=== PATIENT | female | born 1965 | race Caucasian/White ===

== ENCOUNTER → 2018-09-10 08:57 | Outpatient (CLI) | payer BC, SELFPAY ==
[2018-09-10 09:37] LABS: Basophils % 0.5 % (0.1-2.0); Eosinophils # 0.1 K/mm3 (0.0-0.4); Eosinophils % 2.4 % (0.1-12.0); Hematocrit 37.7 % (37.0-47.0); Hemoglobin 12.2 g/dL (12.2-16.2); Lymphocytes # 1.9 K/mm3 (0.7-4.5); Lymphocytes % 31.7 % (10-50); Mean Corpuscular HGB Conc 32.4 g/dL (31.8-35.4); Mean Corpuscular Hemoglobin 28.9 pg (27.0-31.2); Mean Corpuscular Volume 89.3 fl (81-99); Mean Platelet Volume 6.8 fl (7.4-10.4); Monocytes # 0.2 K/mm3 (0.1-1.0); Monocytes % 3.7 % (1.7-9.3); Neutrophils # 3.7 K/mm3 (1.8-7.8); Neutrophils % 61.7 % (37.0-80.0); Platelet Count 383 K/mm3 (142-424); Red Blood Count 4.23 M/mm3 (4.20-5.40); Red Cell Distribution Width 13.2 % (11.5-17.5)
[2018-09-10 10:11] LABS: Hemoglobin A1C 9.2 % (0.0-7.0)
[2018-09-10 11:04] LABS: Alanine Aminotransferase 52 U/L (12-78); Albumin Level 3.3 gm/dL (3.4-5.0); Albumin/Globulin Ratio 0.9 (1.1-1.8); Alkaline Phosphatase 70 U/L (46-116); Anion Gap 14.3 mEq/L (5-15); Aspartate Amino Transferase 41 U/L (15-37); Bilirubin,Total 0.4 mg/dL (0.2-1.0); Blood Urea Nitrogen 18 mg/dL (7-18); Calcium 9.6 mg/dL (8.5-10.1); Carbon Dioxide 29 mmol/L (21.0-32.0); Chloride 101 mmol/L (98-107); Chol/HDL Ratio 6.6 (1-3.5); Cholesterol 217 mg/dL (140-200); Creatinine,Serum 1.21 mg/dL (0.55-1.02); Estimated Glomerular Filt Rate 47 ml/min (>60); GFR (African American) 57 ML/MIN (>60); Globulin 3.5 gm/dl (1.3-3.2); Glucose 162 mg/dL (74-106); HDL Cholesterol 33 mg/dL (29-89); LDL Cholesterol 115 mg/dL (0-130); Potassium 4.3 mmoL/L (3.5-5.1); Sodium 140 mmol/L (136-145); Thyroid Stimulating Hormone 1.62 uIU/ml (0.358-3.740); Total Protein,Serum 6.8 gm/dL (6.4-8.2); Triglycerides 347 mg/dL (30-200); VLDL Cholesterol 69 mg/dL (0-40)
[2018-09-11 06:41] LABS: Microalbumin, Urine 54.5 ug/mL (Not Estab.)
== END ==
PROVIDERS: Visit Provider Nurse Practitioner Family
DX: E10.9 Type 1 diabetes mellitus without complications (principal); E78.2 Mixed hyperlipidemia; I10 Essential (primary) hypertension; N18.3 Chronic kidney disease, stage 3 (moderate); D50.9 Iron deficiency anemia, unspecified
CPT/HCPCS: 36415; 80053; 80061; 82043; 82570; 83036; 84443; 85025

== ENCOUNTER → 2019-01-11 16:43 | Outpatient (CLI) | payer BC, SELFPAY ==
--- NOTE | 2019-01-11 16:44 | MM_ITS ---
MM Dig screening mamm BI w/CAD ORDERING PHYSICIAN : Meaghan Robles APRN PATIENT AGE: 53 years GENDER: Female COMPARISON: June 2010, July 2013, October 2015, November 2016 Also June 2009 film screen mammogram INDICATION: ITS.Routine: SCREENING. No hormones no new complaints noncontributory family history TECHNIQUE: Standard CC and MLO images were obtained. R2 CAD reviewed. FINDINGS: [id number] breast density. No dominant mass nor suspicious calcifications either breast. RIGHT BREAST: No new areas of significant concern in Relative Density at the deep superior right breast appears to be summation shadow from previously evident long-standing fibroglandular elements in this region as seen on studies dating back to 2015, 2016. As well as 2008 film screen mammogram LEFT BREAST:Stable left breast unremarkable. Stable fibroglandular pattern with no discrete new findings. =====IMPRESSION: No new areas significant concern. Bilateral follow-up in one year recommended and should be emphasized/encouraged BI-RADS Category: 2 Benign Finding(s) RECOMMENDED FOLLOW-UP: 1YR 1 YEAR FOLLOW-UP (A letter has been sent to the patient regarding results of the study.)
== END ==
PROVIDERS: PCP Nurse Practitioner Family; Visit Provider Nurse Practitioner Family
DX: Z12.31 Encounter for screening mammogram for malignant neoplasm of breast (principal)
CPT/HCPCS: 77067

== ENCOUNTER → 2019-08-21 12:45 | Outpatient (CLI) | payer BC, SELFPAY ==
[2019-08-21 13:43] LABS: Basophils # 0.1 K/mm3 (0-0.2); Basophils % 0.9 % (0.1-2.0); Eosinophils # 0.2 K/mm3 (0.0-0.4); Eosinophils % 3.2 % (0.1-12.0); Hematocrit 37.7 % (37.0-47.0); Hemoglobin 12.3 g/dL (12.2-16.2); Lymphocytes # 2.5 K/mm3 (0.7-4.5); Lymphocytes % 32.7 % (10-50); Mean Corpuscular HGB Conc 32.8 g/dL (31.8-35.4); Mean Corpuscular Hemoglobin 29.5 pg (27.0-31.2); Mean Platelet Volume 7.3 fl (7.4-10.4); Monocytes # 0.4 K/mm3 (0.1-1.0); Monocytes % 5.8 % (1.7-9.3); Neutrophils # 4.3 K/mm3 (1.8-7.8); Neutrophils % 57.4 % (37.0-80.0); Platelet Count 393 K/mm3 (142-424); Red Blood Count 4.19 M/mm3 (4.20-5.40); Red Cell Distribution Width 12.1 % (11.5-17.5); White Blood Count 7.5 K/mm3 (4.8-10.8)
[2019-08-21 13:57] LABS: Hemoglobin A1C 9.7 % (0.0-7.0)
[2019-08-21 14:32] LABS: Alanine Aminotransferase 27 U/L (12-78); Albumin Level 3.6 gm/dL (3.4-5.0); Albumin/Globulin Ratio 1.1 (1.1-1.8); Alkaline Phosphatase 60 U/L (46-116); Anion Gap 15.1 mEq/L (5-15); Aspartate Amino Transferase 25 U/L (15-37); Bilirubin,Total 0.4 mg/dL (0.2-1.0); Blood Urea Nitrogen 26 mg/dL (7-18); Calcium 9.8 mg/dL (8.5-10.1); Carbon Dioxide 31 mmol/L (21.0-32.0); Chloride 103 mmol/L (98-107); Creatinine,Serum 1.51 mg/dL (0.55-1.02); Estimated Glomerular Filt Rate 36 ml/min (>60); GFR (African American) 44 ML/MIN (>60); Globulin 3.3 gm/dl (1.3-3.2); Glucose 85 mg/dL (74-106); Potassium 4.1 mmoL/L (3.5-5.1); Sodium 145 mmol/L (136-145); Thyroid Stimulating Hormone 3.81 uIU/ml (0.358-3.740); Total Protein,Serum 6.9 gm/dL (6.4-8.2)
[2019-08-22 11:25] LABS: Creatinine, Urine 20.5 mg/dL (Not Estab.); Microalbumin, Urine <3.0 ug/mL (Not Estab.)
== END ==
PROVIDERS: Visit Provider Nurse Practitioner Family
DX: E10.22 Type 1 diabetes mellitus with diabetic chronic kidney disease (principal); N18.3 Chronic kidney disease, stage 3 (moderate)
CPT/HCPCS: 36415; 80053; 82043; 82570; 83036; 84443; 85025

== ENCOUNTER → 2019-08-31 12:49 | Outpatient (CLI) | payer BC, SELFPAY ==
--- NOTE | 2019-08-31 12:54 | US_ITS ---
PROCEDURE: US THYROID CLINICAL INDICATION: THYROMEGLY COMPARISON: No exams were available for comparison FINDINGS: Right lobe: 3.8 x 1.3 x 1.3 cm there are a couple of cysts in the right lobe inferiorly at 3 mm each. Left lobe: The 3.8 x 1.5 x 1.4 cm. A slightly hypoechoic nodules present centrally at 5 x 3 mm. Small cyst is present at 4 mm in the mid polar region. An additional hypoechoic nodule is present posteriorly and inferiorly at 5 mm Isthmus: Unremarkable Additional findings: IMPRESSION: Small bilateral thyroid nodules which have a low level of suspicion for malignancy Dictated by: Igor Horne MD 08/31/2019 15:30 Electronically signed by Igor Horne MD in [place] 08/31/2019 15:30
== END ==
PROVIDERS: PCP Nurse Practitioner Family; Visit Provider Nurse Practitioner Family
DX: E01.0 Iodine-deficiency related diffuse (endemic) goiter (principal)
CPT/HCPCS: 76536

== ENCOUNTER → 2020-03-28 08:33 | Outpatient (CLI) | payer BC, SELFPAY ==
[2020-03-28 08:56] LABS: Basophils % 0.7 % (0.1-2.0); Eosinophils # 0.1 K/mm3 (0.0-0.4); Eosinophils % 2.5 % (0.1-12.0); Hematocrit 37.5 % (37.0-47.0); Hemoglobin 12.4 g/dL (12.2-16.2); Lymphocytes # 1.6 K/mm3 (0.7-4.5); Mean Corpuscular HGB Conc 33.2 g/dL (31.8-35.4); Mean Corpuscular Hemoglobin 29.8 pg (27.0-31.2); Mean Corpuscular Volume 89.7 fl (81-99); Mean Platelet Volume 7.6 fl (7.4-10.4); Monocytes # 0.2 K/mm3 (0.1-1.0); Monocytes % 4.3 % (1.7-9.3); Neutrophils # 3.7 K/mm3 (1.8-7.8); Neutrophils % 64.4 % (37.0-80.0); Platelet Count 313 K/mm3 (142-424); Red Blood Count 4.18 M/mm3 (4.20-5.40); Red Cell Distribution Width 12.4 % (11.5-17.5); White Blood Count 5.7 K/mm3 (4.8-10.8)
[2020-03-28 10:03] LABS: Microalbumin/Creatinine Ratio 32.8
[2020-03-28 10:04] LABS: Creatinine,Urine Random 21 mg/dL (Not Estab.)
[2020-03-28 10:13] LABS: Alanine Aminotransferase 32 U/L (12-78); Albumin/Globulin Ratio 1.4 (1.1-1.8); Alkaline Phosphatase 76 U/L (38-126); Anion Gap 13.8 mEq/L (5-15); Aspartate Amino Transferase 35 U/L (14-36); Bilirubin,Total 0.5 mg/dl (0.2-1.3); Blood Urea Nitrogen 32 mg/dl (7-17); Carbon Dioxide 29 mmol/L (22.0-30.0); Chloride 96 mmol/L (98-107); Chol/HDL Ratio 5.7 (1-3.5); Cholesterol 241 mg/dl (140-200); Estimated Glomerular Filt Rate 39 ml/min (>60); GFR (African American) 48 ML/MIN (>60); Globulin 2.8 g/dL (1.3-3.2); HDL Cholesterol 42 mg/dl (40-60); Potassium 4.8 mmoL/L (3.5-5.1); Sodium 134 mmol/L (136-145); Total Protein,Serum 6.8 g/dl (6.3-8.2); Triglycerides 335 mg/dl (30-150); VLDL Cholesterol 67 mg/dL (0-40)
[2020-03-28 10:24] LABS: Direct LDL Cholesterol 146.86 mg/dL (100-129)
[2020-03-28 10:41] LABS: Thyroid Stimulating Hormone 1.89 uIU/mL (0.465-4.68)
[2020-03-28 10:49] LABS: Glucose 426 mg/dl (74-100)
== END ==
PROVIDERS: Visit Provider Nurse Practitioner Family
DX: E78.2 Mixed hyperlipidemia (principal); E10.22 Type 1 diabetes mellitus with diabetic chronic kidney disease; N18.3 Chronic kidney disease, stage 3 (moderate); E03.9 Hypothyroidism, unspecified; D50.9 Iron deficiency anemia, unspecified
CPT/HCPCS: 36415; 80053; 80061; 82043; 82570; 83036; 84443; 85025

== ENCOUNTER → 2020-04-15 06:09 | Outpatient (CLI) | payer BC, SELFPAY ==
--- NOTE | 2020-04-15 | CA_ITS ---
APPROVED REPORT Exam: Pharmacologic Technologist: Hanh English Ht: 5 ft 7 in Wt: 220 lbs BSA: 2.11 m2 HR: 77 bpm BP: 129/58 mmHg Indications: Chest pain at rest Medical History Medications: Lisinopril,,,,, Omeprazole,,,,, Furosemide (LASIX),,,,, Aspirin,,,,, Synthroid,,,,, Iron,,,,, Tylenol,,,,, Calcium,,,,, FeNOfibrate,,,,, NovOLOG,,,,, LeveMIR,,,,, RoSUVASTATIN,,,,, Stress Test Details Test: LEXISCAN HR Resting HR: 79 bpm Max Heart Rate (APMHR): 167 bpm Max HR Achieved: 112 bpm Target HR (85% APMHR): 141 bpm % of APMHR: 67 Recovery HR: 96 bpm BP Resting BP: 129.0/58.0 mmHg Max BP: 150.0/66.0 mmHg Recovery BP: 140.0/59.0 mmHg ECG Clinical Exercise duration: 04:00 min Highest Stage Achieved: Exercise capacity: 1.0 METs Stress ECG Conclusion Resting ECG: Sinus rhythm Lexiscan portion completed. Patient complained of shortness of breath during peak infusion. Symptoms: Shortness of breath during peak infusion, resolved in recovery. No chest pain. Arrhythmias/Ectopy: No ectopy. ST-T Changes: [address] segment depression noted from the baseline EKG. The EKG portion of the Lexiscan is positive for ischemia. Conclusion: Images to follow. Test Summary RECOVERY 04:00 . . 97 . 148/ 60 . . REST 11:10 . . 79 . 129/ 58 . . Stage 1 . . . . . . . Myoview Injected Stage 1 01:00 . . 111 . . . . Stage 2 01:00 . . 111 . 150/ 66 . . Stage 3 01:00 . . 109 . 137/ 60 . . Stage 4 01:00 . . 101 . 138/ 60 . Stop exercise at 04:00 RECOVERY 01:00 . . 106 . 131/ 58 . . RECOVERY 02:00 . . 99 . 131/ 58 . . RECOVERY 03:00 . . 98 . 148/ 60 . . RECOVERY 04:00 . . 97 . 148/ 60 . . RECOVERY 04:21 . . 92 . 140/ 59 . . Electronically signed by : Jacobo Isabel, 04/15/2020 19:16:08
--- NOTE | 2020-04-15 06:35 | NM_ITS ---
APPROVED REPORT Exam: Nuclear Stress Test Indication: Chest pain, HTN, DM, High cholesterol, Family history Patient Location: Outpatient Stress Tech: Hanh English [place] Tech:Shanti Cramer, ARRT, RT (R)(N) Ht: 5 ft 7 in Wt: 220 lbs Bra Size: 38B HR: 77 bpm BP: 129/58 mmHg BSA: 2.11 m2 BMI: 34.4 History: Chest pain, HTN, DM, High cholesterol, Family history Procedure: Patient received a 0.4 mg of intravenous Lexiscan, resting heart rate 77 bpm, resting blood pressure 129/58 mmHg, with Lexiscan maximum heart rate achived was 110 bpm which is Less than 85 % of the maximum predicted heart rate and blood pressure was 150/66 mmHg. With Lexiscan, patient denied any complaint of chest pain. Electrocardiogram Resting electrocardiogram shows sinus rhythm, with Lexiscan there is a millimeter horizontal ST segment depression noted from the baseline EKG. The EKG portion of the Lexiscan is positive for ischemia. Cardiac Stress and Resting SPECT Images: Cardiac Stress and Resting SPECT images were obtained using technetium 99m Myoview 30.5 mCi stress and 10.38 mCi at rest. Gated SPECT for analysis of segmental wall motion and calculation of the ejection fraction also done. Cardiac stress and resting SPECT images show mild fixed defect in the anterior wall with normal contractility gated SPECT is likely secondary to soft tissue attenuation, no reversible ischemia seen. Computer derived ejection fraction is over 65% with no regional wall motion abnormality, right ventricle is normal size and contractility. Conclusion: 1. The EKG portion of the Lexiscan Myoview is positive for ischemia. 2. No scintigraphic evidence of reversible ischemia seen, computer derived ejection fraction is over 65% with no regional wall motion abnormality, right ventricle is normal size and contractility. 3. Likely abnormal Lexiscan myocardial perfusion imaging due to positive EKG for ischemia with Lexiscan. Electronically signed by : Jacobo Isabel, 04/15/2020 19:18:50
--- NOTE | 2020-04-15 08:15 | HMH.ITSHM ---
Current Home Medications as stated by this patient Jeannette Tran or territory service representative. []NOVOLOG LEVEMIR SYNTHROID ROSUVASTATIN LISINOPRIL OMEPRAZOLE FUROSEMIDE FENOFIBRIC IRON CALCIUM ASA TYLENOL
== END ==
PROVIDERS: PCP Nurse Practitioner Family; Visit Provider Nurse Practitioner Family
DX: R07.9 Chest pain, unspecified (principal)
CPT/HCPCS: 78454; 93017; A9502; J2785

== ENCOUNTER 2020-04-25 07:55 | Day surgery (SDC) | payer BC, SELFPAY ==
[2020-04-25] VITALS (12 sets, daily range): BP systolic 98–165; BP diastolic 50–112; PULSE 78–95; RESP 16–18; TEMP 36.8; O2SAT 90–97; BMI 34.7
--- NOTE | 2020-04-25 08:01 | CA_ITS ---
APPROVED REPORT EXAM: Comprehensive 2D, Doppler, and color-flow Echocardiogram Numerologist: Ignacia Hull RDCS Ht: 5 ft 7 in Wt: 222lbs BSA: 2.11 BP: 157/67 mmHg Indications: ABN EKG,ABN GXT,CP,DM,HTN,BAKER,HLP 2D Dimensions LVOT 1.75 cm (M/F) 1.5-2.5 M-Mode Dimensions RVDd 3.14 cm (0.9-2.6) LVDd 3.36 cm (3.5-5.7) LVDs 2.55 cm (3.5-5.7) IVSd 1.49 cm (0.6-1.1) PWd 1.15 cm (0.6-1.1) EF (Teich) 49.20% FS 24.10% EDV (Teich) 46.10 mL ESV (Teich) 23.40 mL LV Diastology E/A Ratio 0.74 Aortic Valve LVOT Max 107.00 (70-110 cm/s) LVOT VTI 18.70 cm Mitral Valve MV A Velocity 86.00 (40-130 cm/s) Left Ventricle Left atrium is mildly enlarged, left ventricle is normal size, mild concentric left ventricular hypertrophy, visually estimated ejection fraction 55% with no regional wall motion abnormality, grade 1 diastolic dysfunction seen without tissue Doppler evidence of raise left atrial pressure. Right Ventricle Right atrium and right ventricular normal size and contractility. Aortic Valve Aortic valve is thickened and calcified leaflet chordae display good mobility, there is no aortic stenosis or aortic insufficiency. Mitral Valve Mitral valve leaflets are minimally thickened, there is no mitral stenosis, there is mild mitral regurgitation. Tricuspid Valve Tricuspid valve grossly normal, there is mild tricuspid regurgitation, tricuspid regurgitation jet velocity is inadequate for calculation of the right ventricular systolic pressure. Pulmonic Valve Pulmonic valve is poorly visualized. Great Vessels Aortic root is normal size. Pericardium No significant pericardial effusion noted. Conclusion 1. Mildly enlarged left atrium, normal left ventricular size, mild concentric left ventricular hypertrophy, visually estimated ejection fraction 55% with no regional wall motion abnormality, grade 1 diastolic dysfunction seen without tissue Doppler evidence of raise left atrial pressure. 2. Thickened and calcified aortic valve without aortic stenosis or aortic insufficiency. 3. Mild mitral and tricuspid regurgitation. 4. No significant pericardial effusion noted. Electronically signed by : Jacobo Isabel, 04/25/2020 09:35:23
--- NOTE | 2020-04-25 08:14 | IR_ITS ---
APPROVED REPORT Patient Location: Outpatient PROCEDURES Left heart catheterization Left ventriculogram Selective coronary angiogram Drug-eluting stent deployment to the proximal mid codominant circumflex artery Drug-eluting stent deployment to the proximal and mid codominant right coronary artery Drug-eluting stent deployment to the posterior descending artery Drug-eluting stent deployment to the posterior lateral ventricular branch INDICATION Coronary artery disease, Angina pectoris Informed consent was obtained prior to the procedure. COMPLICATIONS none Estimated Blood Loss: less than 10 mls TECHNIQUE One percent lidocaine used to anesthetize the right anterior aspect of the wrist. The right radial artery was accessed via the Seldinger technique. A 6 Serbian sheath was placed in the right radial artery. 2.5 mg of verapamil, 800 mcg of nitroglycerin, 1mg Lidocaine and 5000 U Heparin were given through the arterial sheath. The trap catheter was also used to perform left heart catheterization, left ventriculogram and selective coronary angiogram. At the end the diagnostic angiogram therapeutic heparin was administered giving a therapeutic ACT. And I Cherelle left guide catheter was placed in the left main artery and a Choice PT extra-support wire was placed distally in the circumflex artery. Primary stenting could not be performed with a 3 mm x 38 mm stent therefore a 2.5 x 20 mm balloon was deployed at 20 clair to predilate the circumflex artery. This 3 mm x 38 mm drug-eluting stent was deployed at 20 clair reducing the stenosis to 0%. An additional 3 mm x 15 mm resolute berta stent was then placed in the ostial proximal segment of the circumflex artery overlapping the first stent and deployed at 22 clair. 800 mcg of intracoronary glycerin was administered after the procedure. Excellent angiographic results were obtained before and after the procedure achieving SHABBIR-3 flow before and after. Following this the same catheter was placed into the right coronary artery and the same wire was placed into the posterior lateral branch. Primary stenting could not be performed therefore a 2 mm x 12 mm balloon was used to predilate the stenosis and a 2.25 x 18 mm resolute berta stent was then placed in the posterior lateral branch at 20 clair. There was significant difficulty getting this stent into the proximal right coronary artery due to calcification and atheromatous plaque. There was even difficulty passing the 2 mm balloon through the proximal segment of the right coronary artery suggesting a much more severe stenosis then angiographically appreciated. After achieving SHABBIR-3 flow before and after the procedure in the posterior lateral branch the wire was pulled back and placed into the posterior descending artery where a 2 mm x 12 mm resolute berta stent was deployed at 20 clair reducing the stenosis to 0%. Like the previous stent there was also difficulty getting the stent through the proximal segment of the right coronary artery. At this point it was decided to intervene upon the right coronary artery as clearly there was calcification and a severe stenosis in the proximal segment as evidenced by the inability to easily pass the stent. At this point a 2.75 x 38 mm resolute berta stent was attempted to traverse the stenosis however there was difficulty in delivering the stent due to the intraluminal stenosis. This area was predilated with a 2.5 x 20 mm noncompliant balloon at 20 clair. Despite the predilatation a stent could still not be deployed. A telescope guide liner was then advanced into the proximal right coronary artery and then advanced into the mid segment which allowed delivery of the 2.75 x 38 mm resolute berta stent which
[2020-04-25 08:37] LABS: Basophils # 0.1 K/mm3 (0-0.2); Basophils % 0.7 % (0.1-2.0); Eosinophils # 0.3 K/mm3 (0.0-0.4); Eosinophils % 3.7 % (0.1-12.0); Hemoglobin 13.1 g/dL (12.2-16.2); Lymphocytes # 1.9 K/mm3 (0.7-4.5); Lymphocytes % 26.7 % (10-50); Mean Corpuscular HGB Conc 35.4 g/dL (31.8-35.4); Mean Corpuscular Hemoglobin 30.4 pg (27.0-31.2); Mean Corpuscular Volume 85.8 fl (81-99); Mean Platelet Volume 7.5 fl (7.4-10.4); Monocytes # 0.3 K/mm3 (0.1-1.0); Monocytes % 4.4 % (1.7-9.3); Neutrophils # 4.6 K/mm3 (1.8-7.8); Neutrophils % 64.5 % (37.0-80.0); Platelet Count 344 K/mm3 (142-424); Red Blood Count 4.31 M/mm3 (4.20-5.40); Red Cell Distribution Width 12.5 % (11.5-17.5); White Blood Count 7.2 K/mm3 (4.8-10.8)
[2020-04-25 08:40] LABS: Chloride 99 mmol/L (98-107)
[2020-04-25 08:41] LABS: Potassium 3.7 mmoL/L (3.5-5.1); Sodium 138 mmol/L (136-145)
[2020-04-25 08:43] LABS: Blood Urea Nitrogen 35 mg/dl (7-17); Creatinine Clearance Estimated 65 mL/min (50-200); Estimated Glomerular Filt Rate 34 ml/min (>60); GFR (African American) 41 ML/MIN (>60)
[2020-04-25 08:44] LABS: Anion Gap 14.7 mEq/L (5-15); Calcium 10.2 mg/dl (8.4-10.2); Carbon Dioxide 28 mmol/L (22.0-30.0); Glucose 173 mg/dl (74-100)
[2020-04-25 09:03] LABS: Coronavirus 19 IgG Antibody Negative (Negative)
[2020-04-25 09:04] LABS: Coronavirus 19 IgM Antibody Negative (Negative)
[2020-04-25 14:02] LABS: CATHL Activated Clotting Time 211 SEC (74-125)
[2020-04-25 14:03] LABS: CATHL Activated Clotting Time > 400 SEC (74-125)
--- NOTE | 2020-04-25 14:09 | HMH.PHACLD ---
Jeannette Tran has received discharge medication counseling on the following medications: CONTINUE MEDICATIONS: ASPIRIN, ROSUVASTATIN, LISINOPRIL NEW MEDICATIONS: BRILINTA, BISOPROLOL
== END 2020-04-25 15:22 | disposition home or self-care (01) ==
PROVIDERS: PCP Nurse Practitioner Family; Visit Provider Internal Medicine
DX: I25.110 Atherosclerotic heart disease of native coronary artery with unstable angina pectoris (principal); E78.5 Hyperlipidemia, unspecified; I10 Essential (primary) hypertension; R94.31 Abnormal electrocardiogram [ECG] [EKG]; R94.39 Abnormal result of other cardiovascular function study; E11.9 Type 2 diabetes mellitus without complications; Z79.4 Long term (current) use of insulin; E03.9 Hypothyroidism, unspecified; Z79.899 Other long term (current) drug therapy
CPT/HCPCS: 80048; 85025; 85347; 86328; 92928; 92929; 93306; 93458; 99152; 99153; C1725; C1769; C1876; C9600; C9601; J1644; Q9967

== ENCOUNTER → 2020-05-06 07:58 | Outpatient (CLI) | payer BC, SELFPAY ==
[2020-05-06 08:40] LABS: Basophils # 0.1 K/mm3 (0-0.2); Basophils % 0.8 % (0.1-2.0); Eosinophils # 0.2 K/mm3 (0.0-0.4); Eosinophils % 2.8 % (0.1-12.0); Hematocrit 36.4 % (37.0-47.0); Hemoglobin 11.6 g/dL (12.2-16.2); Lymphocytes # 2.1 K/mm3 (0.7-4.5); Lymphocytes % 32.5 % (10-50); Mean Corpuscular HGB Conc 31.8 g/dL (31.8-35.4); Mean Corpuscular Hemoglobin 28.7 pg (27.0-31.2); Mean Corpuscular Volume 90.2 fl (81-99); Mean Platelet Volume 7.4 fl (7.4-10.4); Monocytes # 0.3 K/mm3 (0.1-1.0); Monocytes % 5.1 % (1.7-9.3); Neutrophils # 3.8 K/mm3 (1.8-7.8); Neutrophils % 58.7 % (37.0-80.0); Platelet Count 343 K/mm3 (142-424); Red Blood Count 4.04 M/mm3 (4.20-5.40); Red Cell Distribution Width 12.3 % (11.5-17.5); White Blood Count 6.5 K/mm3 (4.8-10.8)
[2020-05-06 08:47] LABS: Chloride 102 mmol/L (98-107); Sodium 139 mmol/L (136-145)
[2020-05-06 08:48] LABS: Potassium 4.6 mmoL/L (3.5-5.1)
[2020-05-06 08:50] LABS: Blood Urea Nitrogen 39 mg/dl (7-17); Estimated Glomerular Filt Rate 28 ml/min (>60); GFR (African American) 33 ML/MIN (>60)
[2020-05-06 08:51] LABS: Anion Gap 11.6 mEq/L (5-15); Calcium 10.1 mg/dl (8.4-10.2); Carbon Dioxide 30 mmol/L (22.0-30.0); Glucose 151 mg/dl (74-100)
== END ==
PROVIDERS: Visit Provider Internal Medicine
DX: R06.02 Shortness of breath (principal); I25.10 Atherosclerotic heart disease of native coronary artery without angina pectoris; Z95.5 Presence of coronary angioplasty implant and graft
CPT/HCPCS: 36415; 80048; 85025

== ENCOUNTER → 2020-05-14 08:46 | Outpatient (CLI) | payer BC, SELFPAY ==
[2020-05-14 09:23] LABS: Chloride 100 mmol/L (98-107); Sodium 139 mmol/L (136-145)
[2020-05-14 09:24] LABS: Potassium 4.4 mmoL/L (3.5-5.1)
[2020-05-14 09:26] LABS: Blood Urea Nitrogen 44 mg/dl (7-17); Estimated Glomerular Filt Rate 34 ml/min (>60); GFR (African American) 41 ML/MIN (>60)
[2020-05-14 09:27] LABS: Anion Gap 14.4 mEq/L (5-15); Calcium 9.9 mg/dl (8.4-10.2); Carbon Dioxide 29 mmol/L (22.0-30.0); Glucose 200 mg/dl (74-100)
== END ==
PROVIDERS: Visit Provider Nurse Practitioner Family
DX: I25.10 Atherosclerotic heart disease of native coronary artery without angina pectoris (principal); E78.5 Hyperlipidemia, unspecified; I10 Essential (primary) hypertension; Z95.5 Presence of coronary angioplasty implant and graft
CPT/HCPCS: 80048

== ENCOUNTER 2020-05-14 12:56 | Outpatient (RCR) | payer BC, SELFPAY | END 2020-09-25 13:52 | disposition home or self-care (01) | LOC: PT 12:56 | PROVIDERS: Visit Provider Internal Medicine | DX: Z95.5 Presence of coronary angioplasty implant and graft (principal) | CPT/HCPCS: 93798 ==

== ENCOUNTER → 2020-06-06 06:16 | Outpatient (CLI) | payer BC, SELFPAY ==
--- NOTE | 2020-06-06 06:17 | NM_ITS ---
APPROVED REPORT Exam: Nuclear Stress Test Indication: fatigue Patient Location: Outpatient Stress Tech: Erin Rodríguez [place] Tech:RYAN Peguero RT(R)(N) Ht: 5 ft 6 in Wt: 210 lbs Bra Size: 38b HR: 95 bpm BP: 124/82 mmHg BSA: 2.04 m2 BMI: 33.8 Procedure: Patient received a 0.4 mg of intravenous Lexiscan, resting heart rate 95 bpm, resting blood pressure 124/82 mmHg, with Lexiscan maximum heart rate achived was 133 bpm which is Less than 85 % of the maximum predicted heart rate and blood pressure was 142/80 mmHg. With Lexiscan, patient denied any complaint of chest pain. Electrocardiogram Resting electrocardiogram showed sinus rhythm, with Lexiscan there is less than 1.[address] segment depression noted from the baseline EKG. The EKG portion of the Lexiscan is nondiagnostic. Cardiac Stress and Resting SPECT Images: Cardiac Stress and Resting SPECT images were obtained using technetium 99m Myoview 32.6 mCi stress and 10.15 mCi at rest. Gated SPECT for analysis of segmental wall motion and calculation of the ejection fraction also done. Prone images were also obtained. Cardiac stress and rest SPECT images show uniform myocardial activity without segmental perfusion abnormality, computer derived ejection fraction is over 65% with no regional wall motion abnormality, right ventricle is normal size and contractility. Conclusion: 1. The EKG portion of the Lexiscan Myoview is nondiagnostic. 2. No scintigraphic evidence of reversible ischemia seen, computer derived ejection fraction is over 65% with no regional wall motion abnormality, right ventricle is normal size and contractility. 3. Normal Lexiscan Myoview study. Electronically signed by : Jacobo Isabel, 06/07/2020 11:55:44
--- NOTE | 2020-06-06 06:17 | CA_ITS ---
APPROVED REPORT Exam: Pharmacologic Technologist: Erin Rodríguez, Ht: 5 ft 7 in Wt: 224 lbs BSA: 2.12 m2 HR: 65 bpm BP: 143/60 mmHg Indications: CAD Medical History Medical History: HTN, Hyperlipidemia, Diabetic ??? Insulin Allergies: No known drug allergies Cardiac Risk Factors: HTN, Hyperlipidemia, Diabetes (insulin) Stress Test Details Test: LEXISCAN HR Resting HR: 65 bpm Max Heart Rate (APMHR): 167 bpm Max HR Achieved: 94 bpm Target HR (85% APMHR): 141 bpm % of APMHR: 56 Recovery HR: 84 bpm BP Resting BP: 143.0/60.0 mmHg Max BP: 143.0/60.0 mmHg Recovery BP: 124.0/61.0 mmHg ECG Resting ECG: NSR,LAD,LOW VOLTAGE QRS,SLOW R WAVE PROGRESSION Clinical Exercise duration: 04:01 min Highest Stage Achieved: Exercise capacity: 1.0 METs Stress ECG Conclusion DURING INFUSION OF LEXISCAN PATIENT HAD SOA AND MILD MALAISE. NO CHEST PAIN. NO ARRHYTHMIAS/ECTOPY. NS ST-T CHANGES. UNREMARKABLE LEXISCAN STRESS. MYOVIEW IMAGES REPORTED SEPARATELY. Electronically signed by : Jacobo Isabel, 06/07/2020 11:38:10
--- NOTE | 2020-06-06 09:53 | HMH.ITSHM ---
Current Home Medications as stated by this patient Jeannette Tran or logistics service representative. [] asa furosemide insulin
== END ==
PROVIDERS: PCP Nurse Practitioner Family; Visit Provider Nurse Practitioner Family
DX: I25.10 Atherosclerotic heart disease of native coronary artery without angina pectoris (principal); R06.02 Shortness of breath; E78.2 Mixed hyperlipidemia; I10 Essential (primary) hypertension; I51.89 Other ill-defined heart diseases; Z95.5 Presence of coronary angioplasty implant and graft
CPT/HCPCS: 78452; 93017; A9502; J2785

== ENCOUNTER → 2020-10-07 08:05 | Outpatient (CLI) | payer BC, SELFPAY | PROVIDERS: PCP Nurse Practitioner Family; Visit Provider Ophthalmology | DX: Z01.818 Encounter for other preprocedural examination (principal); Z11.52 Encounter for screening for COVID-19 | CPT/HCPCS: U0003 ==

== ENCOUNTER → 2020-11-12 15:54 | Outpatient (CLI) | payer BC, SELFPAY ==
--- NOTE | 2020-11-12 15:55 | MM_ITS ---
PROCEDURE INFORMATION: Exam: MG Screening 3D Mammography Exam date and time: 11/12/2020 3:55 PM Age: 55 years old Clinical indication: Screening hit mammogram. No personal or family HX of breast cancer TECHNIQUE: Imaging protocol: Screening tomosynthesis and 2D mammography including computer-aided detection (CAD) when performed. COMPARISON: 1. MG DIG MAMM-SCREEN KAROL 01/11/2019 4:49 PM 2. MG DMSB DIG MAMM-SCREEN KAROL W/CAD 12/10/2016 4:20 PM 3. MG DMSB DIG MAMM-SCREEN KAROL 11/14/2015 3:23 PM FINDINGS: MAMMOGRAPHY: Breast composition: There are scattered areas of fibroglandular density. Mass: None. Architectural distortion: No new or suspicious architectural distortion. Calcifications: No new or suspicious calcifications are present Asymmetric density: No new or suspicious asymmetric density is present Skin thickening: None. Axillary adenopathy: None. IMPRESSION: No mammographic evidence of malignancy. Recommend annual screening mammography unless otherwise clinically indicated. ASSESSMENT: BI-RADS category 1: Negative
== END ==
PROVIDERS: PCP Nurse Practitioner Family; Visit Provider Nurse Practitioner Family
DX: Z12.31 Encounter for screening mammogram for malignant neoplasm of breast (principal)
CPT/HCPCS: 77063; 77067

== ENCOUNTER → 2020-11-14 07:51 | Outpatient (CLI) | payer BC, SELFPAY ==
[2020-11-14 08:18] LABS: Basophils % 0.5 % (0.1-2.0); Eosinophils # 0.2 K/mm3 (0.0-0.4); Eosinophils % 2.7 % (0.1-12.0); Hematocrit 37.1 % (37.0-47.0); Hemoglobin 11.8 g/dL (12.2-16.2); Lymphocytes # 1.7 K/mm3 (0.7-4.5); Lymphocytes % 31.5 % (10-50); Mean Corpuscular HGB Conc 31.9 g/dL (31.8-35.4); Mean Corpuscular Hemoglobin 28.7 pg (27.0-31.2); Mean Corpuscular Volume 89.9 fl (81-99); Mean Platelet Volume 7.7 fl (7.4-10.4); Monocytes # 0.3 K/mm3 (0.1-1.0); Monocytes % 4.8 % (1.7-9.3); Neutrophils # 3.2 K/mm3 (1.8-7.8); Neutrophils % 60.5 % (37.0-80.0); Platelet Count 323 K/mm3 (142-424); Red Blood Count 4.12 M/mm3 (4.20-5.40); Red Cell Distribution Width 13.1 % (11.5-17.5); White Blood Count 5.3 K/mm3 (4.8-10.8)
[2020-11-14 08:24] LABS: Chloride 103 mmol/L (98-107); Sodium 137 mmol/L (136-145)
[2020-11-14 08:27] LABS: Alanine Aminotransferase 19 U/L (12-78); Alkaline Phosphatase 49 U/L (38-126); Aspartate Amino Transferase 28 U/L (14-36); Bilirubin,Total 0.6 mg/dl (0.2-1.3); Blood Urea Nitrogen 35 mg/dl (7-17); Carbon Dioxide 28 mmol/L (22.0-30.0); Cholesterol 189 mg/dl (140-200); Estimated Glomerular Filt Rate 29 ml/min (>60); GFR (African American) 35 ML/MIN (>60); Triglycerides 249 mg/dl (30-150); VLDL Cholesterol 50 mg/dL (0-40)
[2020-11-14 08:28] LABS: Albumin/Globulin Ratio 1.6 (1.1-1.8); Calcium 9.5 mg/dl (8.4-10.2); Chol/HDL Ratio 4.7 (1-3.5); Globulin 2.5 g/dL (1.3-3.2); Glucose 208 mg/dl (74-100); HDL Cholesterol 40 mg/dl (40-60); Total Protein,Serum 6.5 g/dl (6.3-8.2)
[2020-11-14 08:43] LABS: Hemoglobin A1C 7.5 % (4.0-6.0); Microalbumin/Creatinine Ratio 8.5
[2020-11-14 08:46] LABS: Direct LDL Cholesterol 106.88 mg/dL (100-129)
[2020-11-14 08:47] LABS: Creatinine,Urine Random 92 mg/dL (Not Estab.)
== END ==
PROVIDERS: Visit Provider Nurse Practitioner Family
DX: I10 Essential (primary) hypertension (principal); E78.2 Mixed hyperlipidemia; E03.9 Hypothyroidism, unspecified; E10.22 Type 1 diabetes mellitus with diabetic chronic kidney disease; D50.9 Iron deficiency anemia, unspecified; Z79.4 Long term (current) use of insulin
CPT/HCPCS: 36415; 80053; 80061; 82043; 82570; 83036; 84443; 85025

== ENCOUNTER → 2021-02-28 16:09 | Outpatient (CLI) | payer BC, SELFPAY ==
--- NOTE | 2021-02-28 16:13 | XR_ITS ---
PROCEDURE: XR HAND LT MIN 3V CLINICAL INDICATION: PAIN IN LT HAND COMPARISON: No exams were available for comparison FINDINGS: No fracture or dislocation. No lytic or blastic change. There is normal mineralization. The joint spaces are well-preserved. No significant degenerative/arthritic changes. No erosive changes evident. Other findings:None. IMPRESSION: No acute findings. Dictated by: Igor Horne MD 02/28/2021 18:23 Igor Horne MD in [place] 02/28/2021 18:23
--- NOTE | 2021-02-28 16:13 | XR_ITS ---
PROCEDURE: XR HAND RT MIN 3V CLINICAL INDICATION: PAIN IN RT HAND COMPARISON: No exams were available for comparison FINDINGS: No fracture or dislocation. No lytic or blastic change. There is normal mineralization. There is mild bony hypertrophic change at the dorsal 2nd metacarpal-carpal junction. No significant arthritic changes in the hand Other findings:None. IMPRESSION: Bony hypertrophy dorsally at the 2nd metacarpal-carpal junction consistent with mild degenerative change. Otherwise unremarkable Dictated by: Igor Horne MD 02/28/2021 18:17 Igor Horne MD in [place] 02/28/2021 18:17
== END ==
PROVIDERS: PCP Nurse Practitioner Family; Visit Provider Nurse Practitioner Family
DX: M79.641 Pain in right hand (principal); M79.642 Pain in left hand
CPT/HCPCS: 73130

== ENCOUNTER → 2021-03-01 08:11 | Outpatient (CLI) | payer BC, SELFPAY ==
[2021-03-01 10:06] LABS: Basophils # 0.1 K/mm3 (0-0.2); Basophils % 0.9 % (0.1-2.0); Eosinophils # 0.2 K/mm3 (0.0-0.4); Eosinophils % 2.8 % (0.1-12.0); Hematocrit 39.5 % (37.0-47.0); Lymphocytes % 33.6 % (10-50); Mean Corpuscular HGB Conc 32.9 g/dL (31.8-35.4); Mean Corpuscular Hemoglobin 28.5 pg (27.0-31.2); Mean Corpuscular Volume 86.6 fl (81-99); Mean Platelet Volume 7.7 fl (7.4-10.4); Monocytes # 0.3 K/mm3 (0.1-1.0); Monocytes % 5.1 % (1.7-9.3); Neutrophils # 3.3 K/mm3 (1.8-7.8); Neutrophils % 57.5 % (37.0-80.0); Platelet Count 349 K/mm3 (142-424); Red Blood Count 4.56 M/mm3 (4.20-5.40); Red Cell Distribution Width 12.5 % (11.5-17.5); White Blood Count 5.8 K/mm3 (4.8-10.8)
[2021-03-01 10:31] LABS: Erythrocyte Sedimentation Rate 18 mm/hr (0-30)
[2021-03-01 10:49] LABS: Hemoglobin A1C 6.4 % (4.0-6.0)
[2021-03-01 13:42] LABS: Anion Gap 14.7 mEq/L (5-15); Blood Urea Nitrogen 36 mg/dl (7-17); Calcium 9.5 mg/dl (8.4-10.2); Carbon Dioxide 28 mmol/L (22.0-30.0); Chloride 103 mmol/L (98-107); Estimated Glomerular Filt Rate 31 ml/min (>60); GFR (African American) 38 ML/MIN (>60); Glucose 100 mg/dl (74-100); Potassium 4.7 mmoL/L (3.5-5.1); Sodium 141 mmol/L (136-145)
[2021-03-01 14:49] LABS: Vitamin B12 350 pg/mL (239-931)
[2021-03-01 14:56] LABS: Folate 5.85 ng/mL
[2021-03-01 15:58] LABS: Ferritin 154 ng/ml (11.1-264)
[2021-03-02 09:17] LABS: RA Latex Turbid. <10.0 IU/mL (0.0-13.9)
[2021-03-03 16:26] LABS: Antinuclear Antibodies, IFA Positive (.)
[2021-03-04 02:33] LABS: Anti-Cyclic Citrullinated Pept 6 units (0-19)
== END ==
PROVIDERS: Visit Provider Nurse Practitioner Family
DX: E10.22 Type 1 diabetes mellitus with diabetic chronic kidney disease (principal); D50.9 Iron deficiency anemia, unspecified; M79.642 Pain in left hand; M79.641 Pain in right hand; Z79.4 Long term (current) use of insulin
CPT/HCPCS: 36415; 80048; 82607; 82728; 82746; 83036; 85025; 85651; 86038; 86200; 86431

== ENCOUNTER 2021-07-19 16:48 | Inpatient (IN) | payer BC, SELFPAY ==
[2021-07-19] VITALS (9 sets, daily range): BP systolic 109–148; BP diastolic 52–74; PULSE 68–79; RESP 17–20; TEMP 36.8–38.8; O2SAT 91–96; BMI 33.6; BMI 33.7
--- NOTE | 2021-07-19 18:54 | XR_ITS ---
PROCEDURE INFORMATION: Exam: XR Chest Exam date and time: 07/19/2021 6:54 PM Age: 56 years old Clinical indication: Pain; Other: Epigastric; Prior surgery; Surgery date: 6+ months; Surgery type: Cardiac stents; Additional info: Abd pain TECHNIQUE: Imaging protocol: XR of the chest. Views: 1 view. COMPARISON: CR CXR CHEST(2 VIEWS-NOT PORTABLE) 08/20/2014 4:27 PM FINDINGS: Lungs: Bibasilar opacities that are less conspicuous compared to the lung base findings on the CT of the abdomen and pelvis. Pleural spaces: Unremarkable. No pleural effusion. No pneumothorax. Heart/Mediastinum: Unremarkable. No cardiomegaly. Bones/joints: Unremarkable. IMPRESSION: Bibasilar opacities that are less conspicuous compared to the lung base findings on the CT of the abdomen and pelvis performed today. Consider further evaluation with chest CT if clinically indicated.
[2021-07-19 19:25] LABS: Influenza A, PCR Not Detected (NotDetected); Influenza B, PCR Not Detected (NotDetected)
[2021-07-19 19:26] LABS: Basophils # 0.1 K/mm3 (0-0.2); Hematocrit 39.4 % (37.0-47.0); Hemoglobin 12.7 g/dL (12.2-16.2); Lymphocytes # 0.7 K/mm3 (0.7-4.5); Lymphocytes % 14.1 % (10-50); Mean Corpuscular HGB Conc 32.2 g/dL (31.8-35.4); Mean Corpuscular Hemoglobin 29.4 pg (27.0-31.2); Mean Corpuscular Volume 91.4 fl (81-99); Mean Platelet Volume 8.5 fl (7.4-10.4); Monocytes # 0.3 K/mm3 (0.1-1.0); Monocytes % 5.2 % (1.7-9.3); Neutrophils # 3.7 K/mm3 (1.8-7.8); Neutrophils % 79.6 % (37.0-80.0); Platelet Count 239 K/mm3 (142-424); Red Cell Distribution Width 12.9 % (11.5-17.5); White Blood Count 4.7 K/mm3 (4.8-10.8)
--- NOTE | 2021-07-19 19:26 | HMH.EDGENADL ---
ED Disposition Clinical Impression: Pneumonia due to COVID-19 virus, Acute kidney injury Acute pancreatitis Qualifiers: Pancreatitis type: unspecified pancreatitis type Acute pancreatitis complication: no infection or necrosis Qualified Code(s): K85.90 - Acute pancreatitis without necrosis or infection, unspecified Disposition: Admitted as Observation Condition on Discharge: Fair Instructions: DI for Acute Abdominal Pain Referrals: Meaghan Robles APRN [Primary Care Provider] - - Critical Care Critical Care Time: No Attestation: On 07/19/21, the high probability of a clinically significant, sudden or life threatening deterioration of the following system(s) required my full and direct attention, intervention and personal management. The time I documented below is in addition to time spent performing reported procedures but includes the following listed in this critical care notation. Medical Decision Making - Carl Inquiry Pt receiving controlled substance: Yes Carl was queried for this patient: Yes Risks and benefits of using a controlled substance: were not discussed with pt by me Vital Signs: 07/19/21 18:01 07/19/21 18:30 07/19/21 18:45 Temperature 101.9 F H Temperature Source Oral Pulse Rate 79 Pulse Rate [Left Radial] 75 79 Respiratory Rate 20 20 Blood Pressure 148/54 H Blood Pressure [Right Arm] 135/54 L 148/54 H Blood Pressure Mean [Right Arm] 81 85 Blood Pressure Source Automatic Cuff Blood Pressure Source [Right Arm] Automatic Cuff Blood Pressure Position Supine Blood Pressure Position [Right Arm] Supine Sitting 02 Sat by Pulse Oximetry 96 95 95 Oxygen Delivery Method Room Air Room Air 07/19/21 20:31 Temperature Temperature Source Pulse Rate 79 Pulse Rate [Left Radial] Respiratory Rate 18 Blood Pressure 136/59 L Blood Pressure [Right Arm] Blood Pressure Mean [Right Arm] Blood Pressure Source Automatic Cuff Blood Pressure Source [Right Arm] Blood Pressure Position Supine Blood Pressure Position [Right Arm] 02 Sat by Pulse Oximetry 95 Oxygen Delivery Method Room Air - Lab Data Lab Results 07/19/21 19:13: WBC 4.7 L, RBC 4.30, Hgb 12.7, Hct 39.4, MCV 91.4, MCH 29.4, MCHC 32.2, RDW 12.9, Plt Count 239, MPV 8.5, Neut % (Auto) 79.6, Lymph % (Auto) 14.1, [place] % (Auto) 5.2, Eos % (Auto) 0.0 L, Baso % (Auto) 1.0, Neut # (Auto) 3.7, Lymph # (Auto) 0.7, [place] # (Auto) 0.3, Eos # (Auto) 0.0, Baso # (Auto) 0.1 07/19/21 19:13: Sodium 135 L, Potassium 4.7, Chloride 97 L, Carbon Dioxide 25, Anion Gap 17.7 H, BUN 46 H, Creatinine 2.10 H, Estimated Creat Clear 47, Estimated GFR 24 L, Est GFR ( Amer) 30 L, Glucose 285 H, Calcium 9.8, Total Bilirubin 0.5, AST 42 H, ALT 25, Alkaline Phosphatase 60, Troponin I < 0.01, C-Reactive Protein 60.3 H, Total Protein 7.0, Albumin 3.9, Globulin 3.1, Albumin/Globulin Ratio 1.3, Amylase 132 H, Lipase 719 H 07/19/21 19:13: SARS-CoV-2 (PCR) Detected A, Influenza A Untype (PCR) Not detected, Influenza Type B (PCR) Not detected 07/19/21 19:13: Lactate 1.0 07/19/21 19:13: ESR 10 Result diagrams: 07/19/21 19:13 07/19/21 19:13 Orders (Tests/Meds): ED MEDICATIONS Generic Name Dose Route Start Last Admin Trade Name Freq PRN Reason Stop Dose Admin Sodium Chloride 1,000 mls @ 999 mls/hr 07/19/21 19:00 07/19/21 19:41 Sod Chlor 0.9% 1000ml Bag IV 07/19/21 20:00 999 mls/hr .Q1H1M CLARE Administration Sodium Chloride 10 ml 07/19/21 18:57 07/19/21 19:42 Sodium Chloride 0.9% 10ml Vial IV 08/18/21 18:56 10 ml NEEDED PRN Administration dilute protonix Discontinued Medications Generic Name Dose Route Start Last Admin Trade Name Freq PRN Reason Stop Dose Admin Acetaminophen 1,000 mg 07/19/21 19:36 07/19/21 19:41 Acetaminophen 500mg Tab PO 07/19/21 19:37 1,000 mg ONCE ONE Administration Morphine Sulfate 4 mg 07/19/21 19:43 07/19/21 20:51 Morphine 4mg/Ml Syringe IV 07/19/21 19:44 4 mg
[2021-07-19 19:30] LABS: Chloride 97 mmol/L (98-107)
[2021-07-19 19:31] LABS: Potassium 4.7 mmoL/L (3.5-5.1); Sodium 135 mmol/L (136-145)
[2021-07-19 19:33] LABS: Alanine Aminotransferase 25 U/L (12-78); Amylase 132 U/L (30-110); Anion Gap 17.7 mEq/L (5-15); Aspartate Amino Transferase 42 U/L (14-36); Bilirubin,Total 0.5 mg/dl (0.2-1.3); Blood Urea Nitrogen 46 mg/dl (7-17); Carbon Dioxide 25 mmol/L (22.0-30.0); Creatinine Clearance Estimated 47 mL/min (50-200); Estimated Glomerular Filt Rate 24 ml/min (>60); GFR (African American) 30 ML/MIN (>60)
[2021-07-19 19:34] LABS: Albumin Level 3.9 g/dl (3.5-5.0); Albumin/Globulin Ratio 1.3 (1.1-1.8); Alkaline Phosphatase 60 U/L (38-126); Calcium 9.8 mg/dl (8.4-10.2); Globulin 3.1 g/dL (1.3-3.2); Glucose 285 mg/dl (74-100)
[2021-07-19 19:38] LABS: Lipase 719 U/L (23-300)
[2021-07-19 19:39] LABS: C-Reactive Protein 60.3 mg/L (0-4)
--- NOTE | 2021-07-19 19:44 | CT_ITS ---
PROCEDURE INFORMATION: Exam: CT Abdomen And Pelvis Without Contrast Exam date and time: 07/19/2021 7:44 PM Age: 56 years old Clinical indication: Abdominal pain; Epigastric; Prior surgery; Surgery date: 6+ months; Surgery type: Appendectomy, gb, cardiac stents, c section, tubal; Additional info: Abdo pain epigastric TECHNIQUE: Imaging protocol: Computed tomography of the abdomen and pelvis without contrast. Radiation optimization: All CT scans at this facility use at least one of these dose optimization techniques: automated exposure control; mA and/or kV adjustment per patient size (includes targeted exams where dose is matched to clinical indication); or iterative reconstruction. COMPARISON: No relevant prior studies available. FINDINGS: Lungs: Patchy subpleural predominant ground-glass opacities are concerning for atypical infection, possibly mild changes of influenza like illness also can be seen with organizing pneumonia/drug toxicity. Liver: Normal. No mass. Gallbladder and bile ducts: There are surgical clips within the gallbladder fossa. Pancreas: Normal. No ductal dilation. Spleen: Multiple calcific densities of the spleen are likely related to prior granulomatous process. Adrenal glands: Benign left adrenal adenoma measuring 1.8 cm in diameter with internal density of 0 Hounsfield units. No follow-up recommended. Kidneys and ureters: Benign-appearing parapelvic sulcus involving the inferior pole of the right kidney measuring 2.3 cm in diameter with internal density of 0 Hounsfield units. No follow-up recommended. Stomach and bowel: Unremarkable. No obstruction. No mucosal thickening. Appendix: The appendix is not definitely identified, but there are no primary or secondary CT findings to suggest a diagnosis of acute appendicitis. Intraperitoneal space: Unremarkable. No free air. No significant fluid collection. Vasculature: Mild calcific atherosclerotic disease is scattered throughout the abdominal aorta without aneurysmal dilatation. Lymph nodes: Unremarkable. No enlarged lymph nodes. Urinary bladder: Unremarkable as visualized. Reproductive: Unremarkable as visualized. Bones/joints: Unremarkable. No acute fracture. Soft tissues: Normal. IMPRESSION: Patchy subpleural predominant ground-glass opacities are concerning for atypical infection, possibly mild changes of influenza like illness also can be seen with organizing pneumonia/drug toxicity. Consider further evaluation with chest CT if clinically indicated. Incidental findings as discussed above. COMMENTS: 1. Consistent with the [employer]'s Incidental Findings Committee white paper (J Am Fidel Radiol 2017): Any incidental adrenal lesion less than or equal to 1 cm is likely benign. No follow-up imaging is recommended for these lesions per consensus recommendations based on imaging criteria. Further lab evaluation could be pursued if warranted based on clinical findings. 2. Consistent with the [employer]'s Incidental Findings Committee white paper (J Am Fidel Radiol 2018): Any incidental renal lesion less than 1 cm or classified as too small to characterize, or any incidental cystic renal lesion characterized as simple-appearing, is likely benign. No follow-up imaging is recommended for these lesions per consensus recommendations based on imaging criteria.
[2021-07-19 19:51] LABS: Coronavirus 19, PCR Detected (NotDetected); Troponin I < 0.01 ng/ml (0.00-0.034)
[2021-07-19 19:58] LABS: Erythrocyte Sedimentation Rate 10 mm/hr (0-30)
--- NOTE | 2021-07-19 22:20 | PC.NURSE ---
Second retail selling floor leadernallely SHEFFIELD TO TAKE PT TO FLOOR FOR ADMISSION
--- NOTE | 2021-07-19 22:25 | PC.NURSE ---
pt arrived to floor via wheelchair
[2021-07-19 22:44] LABS: Troponin I < 0.01 ng/ml (0.00-0.034)
[2021-07-19 23:31] LABS: Glucose,Random 440 mg/dL (74-100)
[2021-07-19 23:43] LABS: POC Glucose,Bedside 505 (70-110)
[2021-07-20] VITALS (7 sets, daily range): BP systolic 108–133; BP diastolic 36–60; PULSE 62–95; RESP 15–19; TEMP 37.2–38.7; O2SAT 90–95
[2021-07-20 00:57] LABS: POC Glucose,Bedside 408 (70-110)
--- NOTE | 2021-07-20 05:52 | PC.NURSE ---
pt A&Ox4, has remained on room air since arriving to floor, O2 sats 94-96%, has complained of nausea and has vomited one time this shift, no other complaints
[2021-07-20 06:48] LABS: POC Glucose,Bedside 306 (70-110)
[2021-07-20 07:19] LABS: Chloride 101 mmol/L (98-107); Sodium 136 mmol/L (136-145)
[2021-07-20 07:20] LABS: Potassium 4.6 mmoL/L (3.5-5.1)
[2021-07-20 07:22] LABS: Anion Gap 14.6 mEq/L (5-15); Blood Urea Nitrogen 45 mg/dl (7-17); Carbon Dioxide 25 mmol/L (22.0-30.0); Creatinine Clearance Estimated 54 mL/min (50-200); Estimated Glomerular Filt Rate 29 ml/min (>60); GFR (African American) 35 ML/MIN (>60); Glucose 323 mg/dl (74-100); Lipase 364 U/L (23-300)
[2021-07-20 07:23] LABS: Calcium 8.8 mg/dl (8.4-10.2)
--- NOTE | 2021-07-20 08:14 | HMH.HP ---
*Admission Date: 07/19/21 *Chief complaint: Cough/abdominal pain/vomiting *History of present illness: 56-year-old white female with history of diabetes, insulin requiring, coronary disease status post stent placement in April 2020 and hyperlipidemia, who has had a mild cough over the past 6 to 7 days. She did not think much about it. She has been vaccinated for COVID-19 and did not have any known exposures, but over the past 24 hours began to have extensive abdominal pain, vomiting and epigastric pain. Presented to the emergency department. In the emergency department evaluation revealed positive COVID-19 serologies, she had elevated amylase and lipase and scanning of chest/abdomen/pelvis with CT modality showed evidence of groundglass infiltrate consistent with COVID-19/viral pneumonia. Interestingly her pancreas did not look inflamed on the CT scan. Clinically her exam was consistent with pancreatitis. She has no other risk factors notable, does not drink alcohol, and has had gallbladder removed many years ago. She has no new medications or other etiologies for possible pancreatitis other than viral infection. Patient was admitted for pain control and further diagnostic/therapeutic evaluation. [facility] History I have reviewed the patient's past medical history: Yes Medical History: Reports:: Coronary Artery Disease, Diabetes Mellitus Type 1, Gastroesophageal Reflux Disease(GERD), Hyperlipidemia, Hypertension Denies:: Cancer, Diabetes Mellitus Type 2, MRSA, Seizures *Have you ever received a pneumonia vaccine?: Yes *Have you received a flu vaccine this season?: Yes Other Medical History: Reports: Thyroid Disease Laterality Cases: Right: Arthroscopy Shoulder Other Surgeries: Yes: Appendectomy, Cardiac Catheterization, Cholecystectomy, Coronary Stent Amputation: No Fractures: No - *Social History Smoking Status: Never smoker Alcohol Intake: never Substance Use Type: denies use *Occupational Status:: employed Housing: house Household Members: spouse *Travel in the last 8 weeks: None Family Hx:: Diabetes Review of Systems - Review of Systems Review of systems:: pertinent systems reviewed and negative unless documented below - *Neurologic Denies headache(s), Denies numbness, Denies weakness Meds Home Medications Medication Instructions Recorded Confirmed Type acetaminophen 500 mg tablet 500 mg PO Q6H PRN 04/17/20 07/19/21 History aspirin 81 mg tablet,delayed 81 mg PO DAILY 04/17/20 07/19/21 History release calcium carbonate 600 mg calcium 600 mg PO BID 04/17/20 07/19/21 History (1,500 mg) tablet fenofibric acid (choline) 135 mg 135 mg PO DAILY cap 04/17/20 07/19/21 History capsule,delayed release ferrous sulfate 325 mg (65 mg 325 mg PO BID 04/17/20 07/19/21 History iron) tablet,delayed release furosemide 20 mg tablet 20 mg PO DAILY tab 04/17/20 07/19/21 History insulin aspart U-100 100 unit/mL 26 unit SQ BID ml 04/17/20 07/19/21 History (3 mL) subcutaneous pen insulin aspart U-100 100 unit/mL 85 unit SQ DAILY PRN ml 04/17/20 07/19/21 History (3 mL) subcutaneous pen levothyroxine 50 mcg tablet 50 mcg PO DAILY tab 04/17/20 07/19/21 History lisinopril 5 mg tablet 5 mg PO DAILY tab 04/17/20 07/19/21 History omeprazole 20 mg capsule,delayed 20 mg PO DAILY cap 04/17/20 07/19/21 History release rosuvastatin 40 mg tablet 40 mg PO DAILY tab 04/17/20 07/19/21 History Clopidogrel Bisulfate [Plavix] See Rx Instructions .ROUTE .COMPLEX 07/19/21 07/19/21 History Insulin Glargine,Hum.rec.anlog 52 units SQ DAILY 07/19/21 07/19/21 History [Touaylao Solostar] bisoproloL fumarate [Bisoprolol See Rx Instructions .ROUTE .COMPLEX 07/19/21 07/19/21 History Fumarate] Allergies Allergy/AdvReac Type Severity Reaction Status Date / Time No Known Drug Allergies Allergy Unknown Verified 07/19/21 22:55 [NKDA] INGREDIENT: NO KNOWN - NO Allergy Unknown Uncoded 10/21/20 10:14 KNOWN DRUG ALLERGY
[2021-07-20 12:10] LABS: POC Glucose,Bedside 257 (70-110)
--- NOTE | 2021-07-20 14:53 | HMH.PHAVTE ---
[facility] Pharmacy VTE Monitoring - Patient Demographics Admission date: 07/20/21 Report Date: 07/20/21 Time: 14:53 Allergies/Adverse Reactions: Patient Allergies No Known Drug Allergies [NKDA] Allergy (Unknown, Verified 07/20/21 14:44) Unknown allergy reaction Height: 1.7 m Weight: 97.636 kg Patient Problems: Current Active Problems (Last Updated 05/06/20 @ 09:13 by Kayla Tran RN) Acute pancreatitis (Acute) Pneumonia due to COVID-19 virus (Acute) Acute kidney injury (Acute) CAD (coronary artery disease) (Chronic) - VTE Risk Labs: VTE Related Lab Results Hgb 12.7 g/dL (12.2-16.2) 07/19/21 19:13 Hct 39.4 % (37.0-47.0) 07/19/21 19:13 Plt Count 239 K/mm3 (142-424) 07/19/21 19:13 BUN 45 mg/dl (7-17) H 07/20/21 06:48 Creatinine 1.80 mg/dl (0.52-1.04) H 07/20/21 06:48 Estimated Creat Clear 54 mL/min (50-200) 07/20/21 06:48 Was VTE Risk Assessment Performed: Yes VTE Score: 6 VTE Risk Level: Moderate Risk - Prophylaxis Types of VTE Prophylaxis: TEDS Knee High Location of Applied Device: Bilateral Lower Extremeties (DIPESH HOSE ORDERED)
[2021-07-20 17:09] LABS: POC Glucose,Bedside 205 (70-110)
--- NOTE | 2021-07-20 18:50 | PC.NURSE ---
pt has been up on and off through out the shift. shes had a low grade temp through out the day. complained of nausea and vomiting this am but has felt better with medication. Denies SOA. C/o abd tenderness with palpation.
--- NOTE | 2021-07-20 18:57 | ECG_ITS ---
APPROVED REPORT Exam: Resting ECG HR:81 bpm ECG Measurements Heart Rate 81 AXES WV 138 P 52 QRSd 72 QRS -31 QT 388 T 33 QTc 450 Conclusion Normal sinus rhythm Left axis deviation Low voltage QRS Abnormal ECG Electronically signed by : Judson Lizarraga MD 07/20/2021 09:07:16
[2021-07-21] VITALS (7 sets, daily range): BP systolic 115–136; BP diastolic 39–59; PULSE 71–82; RESP 16–24; TEMP 36.7–37.5; O2SAT 84–97; BMI 34.2
[2021-07-21 01:22] LABS: POC Glucose,Bedside 375 (70-110)
--- NOTE | 2021-07-21 07:24 | PC.NURSE ---
Patient rested well through night. C/o abdominal pain treated with apap and morphine. zofran x1 for nausea. Up ad alissa in room. T max 100.3. VSS. Blood glucose in 300s, treated per sep.
--- NOTE | 2021-07-21 07:42 | PC.NURSE ---
Pt 84 on room air, pt repositioned SPO2 increased to 87% while sitting on side of bed. Pt placed on 2 L O2 per nasal cannula, SPO2 92 @ best.
[2021-07-21 07:52] LABS: Basophils % 0.2 % (0.1-2.0); Eosinophils % 0.5 % (0.1-12.0); Hematocrit 33.7 % (37.0-47.0); Hemoglobin 10.6 g/dL (12.2-16.2); Lymphocytes # 0.7 K/mm3 (0.7-4.5); Lymphocytes % 7.4 % (10-50); Mean Corpuscular HGB Conc 31.4 g/dL (31.8-35.4); Mean Corpuscular Hemoglobin 29.2 pg (27.0-31.2); Mean Platelet Volume 8.9 fl (7.4-10.4); Monocytes # 0.1 K/mm3 (0.1-1.0); Monocytes % 1.4 % (1.7-9.3); Neutrophils % 90.6 % (37.0-80.0); Platelet Count 185 K/mm3 (142-424); Red Blood Count 3.62 M/mm3 (4.20-5.40); Red Cell Distribution Width 12.9 % (11.5-17.5); White Blood Count 8.8 K/mm3 (4.8-10.8)
[2021-07-21 07:56] LABS: MANUAL DIFFERENTIAL MANUAL DIFFERENTIAL (MANUAL DIFF)
[2021-07-21 07:57] LABS: Chloride 104 mmol/L (98-107); Potassium 4.5 mmoL/L (3.5-5.1); Sodium 135 mmol/L (136-145)
[2021-07-21 07:59] LABS: Alanine Aminotransferase 16 U/L (12-78); Alkaline Phosphatase 51 U/L (38-126); Aspartate Amino Transferase 37 U/L (14-36); Bilirubin,Total 0.4 mg/dl (0.2-1.3); Blood Urea Nitrogen 35 mg/dl (7-17); Creatinine Clearance Estimated 58 mL/min (50-200); Estimated Glomerular Filt Rate 31 ml/min (>60); GFR (African American) 38 ML/MIN (>60)
[2021-07-21 08:00] LABS: Albumin Level 3.1 g/dl (3.5-5.0); Albumin/Globulin Ratio 1.1 (1.1-1.8); Anion Gap 14.5 mEq/L (5-15); Calcium 8.3 mg/dl (8.4-10.2); Carbon Dioxide 21 mmol/L (22.0-30.0); Globulin 2.9 g/dL (1.3-3.2)
[2021-07-21 08:05] LABS: Glucose 402 mg/dl (74-100)
--- NOTE | 2021-07-21 08:06 | PC.NURSE ---
Critical lab reported of blood sugar 410 (MD Zia) notified. Patient is already on medium intensity insulin
[2021-07-21 08:14] LABS: Lymphocytes % 7 % (10-50); Monocytes % 2 % (2-9); Neutrophils % 91 % (42-76); Platelet Estimate Normal; RBC Morphology Normal; Total Cells Counted 100
--- NOTE | 2021-07-21 08:45 | P.PN_ITS ---
Internal Medicine - PN: Subj *Date: 07/21/21 *Time: 08:45 Interval history: Patient's abdomen feels better. She is been able to tolerate sips of clear liquids. Has a mild cough that is nonproductive of sputum. No respiratory distress, on very low flow oxygen. Exam Vital signs and Labs for Last 24 Hours: Temp Pulse Resp BP Pulse Ox 99.4 F 76 21 115/39 L 92 L 07/21/21 07:42 07/21/21 07:42 07/21/21 07:42 07/21/21 07:42 07/21/21 07:42 Laboratory Results - last 24 hr 07/20/21 11:57: POC Glucose 257 H 07/20/21 16:57: POC Glucose 205 H 07/20/21 20:57: POC Glucose 375 H* 07/21/21 07:30: WBC 8.8 D, RBC 3.62 L, Hgb 10.6 L, Hct 33.7 L, MCV 93.0, MCH 29.2, MCHC 31.4 L, RDW 12.9, Plt Count 185, MPV 8.9, Neut % (Auto) 90.6 H, Lymph % (Auto) 7.4 L, [place] % (Auto) 1.4 L, Eos % (Auto) 0.5, Baso % (Auto) 0.2, Neut # (Auto) 8.0 H, Lymph # (Auto) 0.7, [place] # (Auto) 0.1, Eos # (Auto) 0.0, Baso # (Auto) 0.0, Total Counted 100, Neutrophils % (Manual) 91 H, Lymphocytes % (Manual) 7 L, Monocytes % (Manual) 2, Platelet Estimate Normal, RBC Morphology Normal 07/21/21 07:30: Sodium 135 L, Potassium 4.5, Chloride 104, Carbon Dioxide 21 L, Anion Gap 14.5, BUN 35 H, Creatinine 1.70 H, Estimated Creat Clear 58, Estimated GFR 31 L, Est GFR ( Amer) 38 L, Glucose 402 H*, Calcium 8.3 L, Total Bilirubin 0.4, AST 37 H, ALT 16 D, Alkaline Phosphatase 51, Total Protein 6.0 L , Albumin 3.1 L, Globulin 2.9, Albumin/Globulin Ratio 1.1 I & O for Last 24 hours: Intake & Output 07/18/21 07/19/21 07/20/21 07/21/21 11:59 11:59 11:59 11:59 Intake Total 1120 / 1120 1680 / 1680 Output Total 800 / 800 Balance 1120 / 1120 880 / 880 Weight 215 lb 4 oz 217 lb 14.4 oz Narrative: Patient is pleasant, talkative, abdomen is much softer, very minimally pack epigastric tenderness. Good air movement. No rhonchi or crackles. Heart rate regular. No edema or clubbing. Neurologically intact Assessment and Plan (1) Acute kidney injury Status: Acute Category: Medical Code(s): N17.9 - Acute kidney failure, unspecified (2) Acute pancreatitis Status: Acute Qualifiers: Pancreatitis type: unspecified pancreatitis type Acute pancreatitis complication: no infection or necrosis Qualified Code(s): K85.90 - Acute pancreatitis without necrosis or infection, unspecified Category: Medical Code(s): K85.90 - Acute pancreatitis without necrosis or infection, unspecified (3) Pneumonia due to COVID-19 virus Status: Acute Category: Medical Code(s): U07.1 - COVID-19; J12.82 - Pneumonia due to coronavirus disease 2019 (4) CAD (coronary artery disease) Status: Chronic Qualifiers: Coronary Disease-Associated Artery/Lesion type: [place] artery [place] vs. transplanted heart: [place] heart Associated angina: without angina Qualified Code(s): I25.10 - Atherosclerotic heart disease of [place] coronary artery without angina pectoris Category: Medical Code(s): I25.10 - Atherosclerotic heart disease of [place] coronary artery without angina pectoris - Assessment and plan all Dx Assessment and Plan for all problems:: Overall improving. IV fluids. Cough medicine. Advance diet as tolerated. Restart home glucose medication
[2021-07-21 11:33] LABS: POC Glucose,Bedside 366 (70-110)
[2021-07-21 11:52] LABS: POC Glucose,Bedside 293 (70-110)
[2021-07-21 17:28] LABS: POC Glucose,Bedside 179 (70-110)
--- NOTE | 2021-07-21 18:47 | PC.NURSE ---
Patient had complaints of n/v throughout shift; contacted MD Zia earlier regarding additional antiemetics. Phenergan 12.5mg ordered as needed. Patient continues to have dry cough and is unable to provide sputum sample. Patient was provided with education and demonstration regarding incentive spirometer use and deep breathing/coughing to aid against PNA
[2021-07-21 21:07] LABS: POC Glucose,Bedside 133 (70-110)
[2021-07-22] VITALS (7 sets, daily range): BP systolic 125–154; BP diastolic 53–76; PULSE 73–78; RESP 16–21; TEMP 36.7–37.2; O2SAT 84–98; BMI 35.2
[2021-07-22 06:41] LABS: Basophils % 0.5 % (0.1-2.0); Hematocrit 34.4 % (37.0-47.0); Hemoglobin 10.8 g/dL (12.2-16.2); Lymphocytes # 0.7 K/mm3 (0.7-4.5); Lymphocytes % 10.8 % (10-50); Mean Corpuscular HGB Conc 31.3 g/dL (31.8-35.4); Mean Corpuscular Hemoglobin 29.2 pg (27.0-31.2); Mean Corpuscular Volume 93.3 fl (81-99); Mean Platelet Volume 8.7 fl (7.4-10.4); Monocytes # 0.2 K/mm3 (0.1-1.0); Neutrophils # 5.5 K/mm3 (1.8-7.8); Neutrophils % 85.6 % (37.0-80.0); Platelet Count 212 K/mm3 (142-424); Red Blood Count 3.69 M/mm3 (4.20-5.40); Red Cell Distribution Width 13.1 % (11.5-17.5); White Blood Count 6.4 K/mm3 (4.8-10.8)
[2021-07-22 06:47] LABS: Chloride 109 mmol/L (98-107); Potassium 4.9 mmoL/L (3.5-5.1); Sodium 140 mmol/L (136-145)
[2021-07-22 06:49] LABS: Alanine Aminotransferase 16 U/L (12-78); Aspartate Amino Transferase 41 U/L (14-36); Blood Urea Nitrogen 25 mg/dl (7-17); Creatinine Clearance Estimated 68 mL/min (50-200); Estimated Glomerular Filt Rate 36 ml/min (>60); GFR (African American) 44 ML/MIN (>60)
[2021-07-22 06:50] LABS: Albumin Level 3.1 g/dl (3.5-5.0); Alkaline Phosphatase 54 U/L (38-126); Anion Gap 14.9 mEq/L (5-15); Bilirubin,Total 0.4 mg/dl (0.2-1.3); Calcium 8.4 mg/dl (8.4-10.2); Carbon Dioxide 21 mmol/L (22.0-30.0); Globulin 3.1 g/dL (1.3-3.2); Glucose 223 mg/dl (74-100); Total Protein,Serum 6.2 g/dl (6.3-8.2)
[2021-07-22 06:55] LABS: MANUAL DIFFERENTIAL MANUAL DIFFERENTIAL (MANUAL DIFF)
[2021-07-22 08:00] LABS: Lymphocytes % 14 % (10-50); Monocytes % 2 % (2-9); Neutrophils % 84 % (42-76); Platelet Estimate Normal; Total Cells Counted 100
[2021-07-22 08:01] LABS: RBC Morphology Normal
--- NOTE | 2021-07-22 08:40 | HMH.ACPN2 ---
Internal Medicine - PN: Subj *Date: 07/22/21 *Time: 08:40 Interval history: Patient has a cough, become short of breath with moving around from bed to chair, oxygen requirement is fairly minimal at 1 to 2 L. Had a little bit of nausea with 2 episodes of clear liquid emesis yesterday, but has much better abdominal pain today with no diarrhea or hematemesis or melena. Exam Vital signs and Labs for Last 24 Hours: Temp Pulse Resp BP Pulse Ox 98.1 F 77 19 154/76 H 84 L 07/22/21 08:00 07/22/21 08:00 07/22/21 08:00 07/22/21 08:00 07/22/21 08:00 Laboratory Results - last 24 hr 07/21/21 06:56: POC Glucose 366 H* 07/21/21 11:42: POC Glucose 293 H 07/21/21 17:00: POC Glucose 179 H 07/21/21 20:50: POC Glucose 133 H 07/22/21 06:17: WBC 6.4 D, RBC 3.69 L, Hgb 10.8 L, Hct 34.4 L, MCV 93.3, MCH 29.2, MCHC 31.3 L, RDW 13.1, Plt Count 212, MPV 8.7, Neut % (Auto) 85.6 H, Lymph % (Auto) 10.8, [place] % (Auto) 3.0, Eos % (Auto) 0.0 L, Baso % (Auto) 0.5, Neut # (Auto) 5.5, Lymph # (Auto) 0.7, [place] # (Auto) 0.2, Eos # (Auto) 0.0, Baso # (Auto) 0.0, Total Counted 100, Neutrophils % (Manual) 84 H, Lymphocytes % (Manual) 14, Monocytes % (Manual) 2, Platelet Estimate Normal, RBC Morphology Normal 07/22/21 06:17: Sodium 140, Potassium 4.9, Chloride 109 H, Carbon Dioxide 21 L, Anion Gap 14.9, BUN 25 H D, Creatinine 1.50 H, Estimated Creat Clear 68, Estimated GFR 36 L, Est GFR ( Amer) 44 L, Glucose 223 H D, Calcium 8.4, Total Bilirubin 0.4, AST 41 H, ALT 16, Alkaline Phosphatase 54, Total Protein 6.2 L, Albumin 3.1 L, Globulin 3.1, Albumin/Globulin Ratio 1.0 L I & O for Last 24 hours: Intake & Output 07/19/21 07/20/21 07/21/21 07/22/21 11:59 11:59 11:59 11:59 Intake Total 1120 / 1120 2680 / 2680 2627 / 2627 Output Total 800 / 800 1100 / 1100 Balance 1120 / 1120 1880 / 1880 1527 / 1527 Weight 215 lb 4 oz 217 lb 14.478 oz 224 lb Microbiology Reports for the Last 24 Hours: Microbiology 07/19/21 19:13 Blood Blood Culture - Preliminary NO GROWTH AFTER 48 HOURS 07/19/21 19:13 Blood Blood Culture - Preliminary NO GROWTH AFTER 48 HOURS Narrative: Patient is up in the side of the bed. In no distress. Lungs are clear, abdomen is soft, very minimal epigastric tenderness. No edema or clubbing. Alert, pleasant and oriented. Heart rate regular. Assessment and Plan (1) Acute kidney injury Status: Acute Category: Medical Code(s): N17.9 - Acute kidney failure, unspecified (2) Acute pancreatitis Status: Acute Qualifiers: Pancreatitis type: unspecified pancreatitis type Acute pancreatitis complication: no infection or necrosis Qualified Code(s): K85.90 - Acute pancreatitis without necrosis or infection, unspecified Category: Medical Code(s): K85.90 - Acute pancreatitis without necrosis or infection, unspecified (3) Pneumonia due to COVID-19 virus Status: Acute Category: Medical Code(s): U07.1 - COVID-19; J12.82 - Pneumonia due to coronavirus disease 2019 (4) CAD (coronary artery disease) Status: Chronic Qualifiers: Coronary Disease-Associated Artery/Lesion type: [place] artery [place] vs. transplanted heart: [place] heart Associated angina: without angina Qualified Code(s): I25.10 - Atherosclerotic heart disease of [place] coronary artery without angina pectoris Category: Medical Code(s): I25.10 - Atherosclerotic heart disease of [place] coronary artery without angina pectoris (5) Diabetes type 1, controlled Status: Acute Category: Medical Code(s): E10.9 - Type 1 diabetes mellitus without complications - Assessment and plan all Dx Assessment and Plan for all problems:: Patient is doing fairly well given her significant and multiple risk factors for progression of COVID-19 disease. Continue oxygen support. Discussed with patient that once her pancreatitis improves she meets criteria to go home and be nilo
[2021-07-22 10:09] LABS: POC Glucose,Bedside 211 (70-110)
[2021-07-22 11:53] LABS: POC Glucose,Bedside 188 (70-110)
[2021-07-22 12:22] LABS: POC Glucose,Bedside 209 (70-110)
[2021-07-22 19:56] LABS: POC Glucose,Bedside 127 (70-110)
[2021-07-22 21:51] LABS: POC Glucose,Bedside 147 (70-110)
[2021-07-23] VITALS: BP 135/70; PULSE 77; RESP 17; TEMP 37.1; O2SAT 95
--- NOTE | 2021-07-23 03:46 | PC.NURSE ---
Pt rested well this shift. Pt had c/o pain in abdomen, treated with medication per mar with reported relief. No n/v/d t/o shift reported to this RN. Nothing further.
[2021-07-23 04:00] VITALS: BP 145/79; PULSE 82; RESP 17; TEMP 36.8; O2SAT 92
[2021-07-23 04:23] VITALS: BMI 34.9
[2021-07-23 06:24] LABS: Basophils % 0.3 % (0.1-2.0); Eosinophils % 0.1 % (0.1-12.0); Hematocrit 35.3 % (37.0-47.0); Lymphocytes # 0.9 K/mm3 (0.7-4.5); Lymphocytes % 10.7 % (10-50); Mean Corpuscular HGB Conc 31.1 g/dL (31.8-35.4); Mean Corpuscular Hemoglobin 29.2 pg (27.0-31.2); Mean Platelet Volume 8.8 fl (7.4-10.4); Monocytes # 0.2 K/mm3 (0.1-1.0); Monocytes % 2.7 % (1.7-9.3); Neutrophils # 7.3 K/mm3 (1.8-7.8); Neutrophils % 86.2 % (37.0-80.0); Platelet Count 290 K/mm3 (142-424); Red Blood Count 3.75 M/mm3 (4.20-5.40); Red Cell Distribution Width 13.2 % (11.5-17.5); White Blood Count 8.4 K/mm3 (4.8-10.8)
[2021-07-23 06:26] LABS: MANUAL DIFFERENTIAL MANUAL DIFFERENTIAL (MANUAL DIFF)
[2021-07-23 06:39] LABS: Potassium 3.8 mmoL/L (3.5-5.1); Sodium 142 mmol/L (136-145)
[2021-07-23 06:41] LABS: Chloride 110 mmol/L (98-107)
[2021-07-23 06:42] LABS: Albumin Level 3.3 g/dl (3.5-5.0); Blood Urea Nitrogen 18 mg/dl (7-17); Creatinine Clearance Estimated 78 mL/min (50-200); Estimated Glomerular Filt Rate 43 ml/min (>60); GFR (African American) 51 ML/MIN (>60); Globulin 3.4 g/dL (1.3-3.2); Total Protein,Serum 6.7 g/dl (6.3-8.2)
[2021-07-23 06:43] LABS: Calcium 8.8 mg/dl (8.4-10.2); Glucose 91 mg/dl (74-100)
[2021-07-23 06:44] LABS: Alanine Aminotransferase 18 U/L (12-78); Alkaline Phosphatase 73 U/L (38-126); Anion Gap 12.8 mEq/L (5-15); Aspartate Amino Transferase 43 U/L (14-36); Bilirubin,Total 0.7 mg/dl (0.2-1.3); Carbon Dioxide 23 mmol/L (22.0-30.0)
[2021-07-23 07:46] LABS: Lymphocytes % 20 % (10-50); Monocytes % 2 % (2-9); Neutrophils % 78 % (42-76); Total Cells Counted 100
[2021-07-23 07:47] LABS: Platelet Estimate Normal; RBC Morphology Normal
[2021-07-23 08:00] VITALS: BP 146/76; PULSE 79; RESP 20; TEMP 36.6; O2SAT 94
--- NOTE | 2021-07-23 08:43 | HMH.DCSUM ---
General - General Admission date:: 07/19/21 Discharge date: 07/23/21 HPI HPI: 56-year-old white female with history of diabetes, insulin requiring, coronary disease status post stent placement in April 2020 and hyperlipidemia, who has had a mild cough over the past 6 to 7 days. She did not think much about it. She has been vaccinated for COVID-19 and did not have any known exposures, but over the past 24 hours began to have extensive abdominal pain, vomiting and epigastric pain. Presented to the emergency department. In the emergency department evaluation revealed positive COVID-19 serologies, she had elevated amylase and lipase and scanning of chest/abdomen/pelvis with CT modality showed evidence of groundglass infiltrate consistent with COVID-19/viral pneumonia. Interestingly her pancreas did not look inflamed on the CT scan. Clinically her exam was consistent with pancreatitis. She has no other risk factors notable, does not drink alcohol, and has had gallbladder removed many years ago. She has no new medications or other etiologies for possible pancreatitis other than viral infection. Patient was admitted for pain control and further diagnostic/therapeutic evaluation. Hospital Course Hospital Course: Patient was admitted, found to have COVID-19 pneumonia on x-ray findings although that was not the reason she presented to the emergency department, her belly pain was found to be from pancreatitis. Interestingly she had positive amylase and lipase enzyme elevation and the clinical attributes of pancreatitis but her CT scan showed no evidence of inflammation on imaging. She has otherwise no risk factors for pancreatitis, no alcohol use and her gallbladder was removed many years ago. Possible inflammatory response from COVID-19 virus was entertained. Given the fact patient had no oxygen requirement admission she was given antibiotic therapy and tolerated this well. Pancreatitis was treated with bowel rest, pain control and analgesics. She responded well to this and her pain improved. Given her need for anti-inflammatory therapy and her hyperglycemia at home I gave her a couple of doses of Farxiga here at the hospital and she tolerated this well. We discussed that this was off label use for type 1 diabetes but that there was some research about improved outcomes and possible effectiveness in patients with COVID-19. This morning patient was doing well, had eaten 75% of a full liquid diet, no pain, slept well, and she will be discharged home. She will need 2 L of oxygen requirement. New medication for Farxiga, low-dose dexamethasone to help with Covid inflammation and Phenergan was sent to [facility]. We will see her in 1 week. Objective Vital signs: Temp Pulse Resp BP Pulse Ox 97.8 F 79 20 146/76 H 94 L 07/23/21 08:00 07/23/21 08:00 07/23/21 08:00 07/23/21 08:00 07/23/21 08:00 no acute distress - *Routine HEENT Exam Head: Present: normocephalic Eye: Present: EOMI, PERRL ENT: Present: mucous membranes moist - *Routine Neck Exam Present: supple - *Routine Respiratory Exam Present: CTA bilaterally - *Routine Cardiovascular Exam Present: RRR - *Routine Abdominal Exam Present: soft, normoactive bowel sounds, obese. Absent: tenderness - *Routine Extremities Exam Absent: cyanosis, clubbing, edema - *Routine Skin Exam Present: warm. Absent: rash - Detailed Eye Exam Eyelids: Bilateral normal inspection Results Labs on day of discharge: Labs from last 24 hours 07/23/21 07/23/21 07/22/21 05:52 05:52 21:39 WBC 8.4 D RBC 3.75 L Hgb 11.0 L Hct 35.3 L MCV 94.0 MCH 29.2 MCHC 31.1 L RDW 13.2 Plt Count 290 D MPV 8.8 Neut % (Auto) 86.2 H Lymph % (Auto) 10.7 [place] % (Auto) 2.7 Eos % (Auto) 0.1 Baso % (Auto) 0.3 Neut # (Auto) 7.3 Lymph # (Auto) 0.9 [place] # (Auto) 0.2 Eos # (Auto) 0.0 Baso # (Auto) 0.0 Total Coun
[2021-07-23 10:27] VITALS: O2SAT 76
--- NOTE | 2021-07-23 10:59 | SW/DCPLANNER ---
SET UP HOME 02 FOR THIS PATIENT WHO IS DISCHARGING HOME TODAY...PATIENT WISHES TO USE [facility] AND WILL NEED A PORTABLE TANK BROUGHT TO THE HOSPITAL PRIOR TO LEAVING..
[2021-07-23 20:10] LABS: POC Glucose,Bedside 167 (70-110)
[2021-07-23 20:10] LABS: POC Glucose,Bedside 87 (70-110)
== END 2021-07-23 12:08 | disposition home or self-care (01) | DRG 177 ==
LOC: ER 20:44 → 2ND 22:08
PROVIDERS: Admitting Provider Internal Medicine Adolescent Medicine; Emergency Provider Emergency Medicine; PCP Nurse Practitioner Family; Visit Provider Internal Medicine Adolescent Medicine
DX: U07.1 COVID-19 (principal); J12.82 Pneumonia due to coronavirus disease 2019; K85.90 Acute pancreatitis without necrosis or infection, unspecified; N17.9 Acute kidney failure, unspecified; Z79.4 Long term (current) use of insulin; E78.5 Hyperlipidemia, unspecified; I25.10 Atherosclerotic heart disease of native coronary artery without angina pectoris; Z95.5 Presence of coronary angioplasty implant and graft; I10 Essential (primary) hypertension; E10.9 Type 1 diabetes mellitus without complications
CPT/HCPCS: 36415; 71045; 74176; 80048; 80053; 82150; 82947; 82962; 83605; 83690; 84484; 85007; 85025; 85651; 86140; 87040; 93005; 96365; 96375; 99284; C9803; J1956; J2405; U0003; U0005

== ENCOUNTER → 2021-09-19 14:18 | Outpatient (CLI) | payer BC, SELFPAY | PROVIDERS: Visit Provider Ophthalmology | DX: Z01.812 Encounter for preprocedural laboratory examination (principal); Z11.52 Encounter for screening for COVID-19 | CPT/HCPCS: C9803; U0003; U0005 ==

== ENCOUNTER → 2021-10-27 14:20 | Outpatient (CLI) | payer BC, SELFPAY ==
[2021-10-27 15:12] LABS: Basophils # 0.1 K/mm3 (0-0.2); Basophils % 0.9 % (0.1-2.0); Eosinophils # 0.1 K/mm3 (0.0-0.4); Eosinophils % 2.3 % (0.1-12.0); Hematocrit 35.6 % (37.0-47.0); Hemoglobin 11.7 g/dL (12.2-16.2); Lymphocytes # 1.5 K/mm3 (0.7-4.5); Lymphocytes % 24.7 % (10-50); Mean Corpuscular HGB Conc 32.9 g/dL (31.8-35.4); Mean Corpuscular Hemoglobin 30.4 pg (27.0-31.2); Mean Corpuscular Volume 92.3 fl (81-99); Mean Platelet Volume 8.1 fl (7.4-10.4); Monocytes # 0.3 K/mm3 (0.1-1.0); Monocytes % 5.2 % (1.7-9.3); Neutrophils # 4.1 K/mm3 (1.8-7.8); Neutrophils % 66.9 % (37.0-80.0); Platelet Count 318 K/mm3 (142-424); Red Blood Count 3.86 M/mm3 (4.20-5.40); Red Cell Distribution Width 13.3 % (11.5-17.5); White Blood Count 6.2 K/mm3 (4.8-10.8)
[2021-10-27 15:16] LABS: Alanine Aminotransferase 31 U/L (12-78); Albumin Level 3.8 g/dl (3.5-5.0); Alkaline Phosphatase 52 U/L (38-126); Anion Gap 9.4 mEq/L (5-15); Aspartate Amino Transferase 36 U/L (14-36); Bilirubin,Direct 0.2 mg/dl (0.0-0.4); Bilirubin,Indirect 0.2 mg/dL (0.0-0.9); Bilirubin,Total 0.4 mg/dl (0.2-1.3); Bilirubin,Unconjugated 0.2 mg/dL (0.0-1.1); Blood Urea Nitrogen 30 mg/dl (7-17); Carbon Dioxide 30 mmol/L (22.0-30.0); Chloride 104 mmol/L (98-107); Chol/HDL Ratio 5.2 (1-3.5); Cholesterol 188 mg/dl (140-200); Estimated Glomerular Filt Rate 31 ml/min (>60); GFR (African American) 38 ML/MIN (>60); Glucose 385 mg/dl (74-100); HDL Cholesterol 36 mg/dl (40-60); Potassium 4.4 mmoL/L (3.5-5.1); Sodium 139 mmol/L (136-145); Total Protein,Serum 6.1 g/dl (6.3-8.2); Triglycerides 316 mg/dl (30-150); VLDL Cholesterol 63 mg/dL (0-40)
[2021-10-27 15:27] LABS: Direct LDL Cholesterol 102.22 mg/dL (100-129)
[2021-10-27 15:40] LABS: Troponin I < 0.01 ng/ml (0.00-0.034)
== END ==
PROVIDERS: Visit Provider Nurse Practitioner Family
DX: R06.00 Dyspnea, unspecified (principal); I20.9 Angina pectoris, unspecified; I10 Essential (primary) hypertension; E78.5 Hyperlipidemia, unspecified; Z95.5 Presence of coronary angioplasty implant and graft
CPT/HCPCS: 36415; 80048; 80061; 80076; 84484; 85025

== ENCOUNTER → 2021-10-31 06:52 | Outpatient (CLI) | payer BC, SELFPAY ==
--- NOTE | 2021-10-31 06:53 | CA_ITS ---
APPROVED REPORT EXAM: Comprehensive 2D, Doppler, and color-flow Echocardiogram Automatic Riveting Machine Operator: Ignacia Hull RDCS Ht: 5 ft 6 in Wt: 229lbs BSA: 2.12 BP: 136/47 mmHg Indications: ANGINA,CAD,HTN,DM,HLP,SOA BAKER 2D Dimensions LVOT 1.69 cm (M/F) 1.5-2.5 M-Mode Dimensions RVDd 2.17 cm (0.9-2.6) LA Diam 3.89 cm (1.9-4.0) LVDd 6.14 cm (3.5-5.7) Ao Diam 2.44 cm (2.0-3.7) LVDs 4.38 cm (3.5-5.7) IVSd 0.72 cm (0.6-1.1) PWd 0.95 cm (0.6-1.1) EF (Teich) 54.20% FS 28.70% EDV (Teich) 189.70 mL TAPSE 2.25 (<1.7) ESV (Teich) 86.80 mL LV Diastology E Decel Time 203.00 (160-240 msec) E/A Ratio 1.0 MED E' 5.90 (< 7 cm/sec) E'/MED E' Ratio 14.92 (>14) LAT E' 7.30 (<10 cm/sec) E/LAT E' Ratio 12.05 (>14) Mitral Valve MV E Max Earle. 88.00 (40-130 cm/s) MV A Velocity 92.00 (40-130 cm/s) E/A Ratio 0.95 MV Decel. Time 203.00 (160-240 ms) MV PHT 60.00 ms Left Ventricle Left atrium is mildly enlarged, left ventricle is normal size, mild concentric left ventricular hypertrophy, estimated ejection fraction 55% with no regional wall motion abnormality, diastolic parameters are inconclusive. Right Ventricle Right atrium and right ventricle are mildly enlarged with normal contractility. Aortic Valve Aortic valve is minimally thickened and fibrosed there is no aortic stenosis or aortic insufficiency. Mitral Valve Mitral valve is minimally thickened, there is mild mitral regurgitation. Tricuspid Valve Tricuspid valve grossly normal, there is mild tricuspid regurgitation, tricuspid regurgitation jet velocity is inadequate for calculation of the right ventricular systolic pressure. Pulmonic Valve Pulmonic valve is poorly visualized. Great Vessels Aortic root is normal size. Inferior vena cava is poorly visualized. Pericardium No significant pericardial effusion noted. Anterior echo-free space seen Conclusion 1. Mild biatrial enlargement, normal left ventricular size, mild concentric left ventricular hypertrophy, estimated ejection fraction 55% with no regional wall motion abnormality, diastolic parameters inconclusive. 2. Mild mitral and tricuspid regurgitation. 3. No significant pericardial effusion noted, anterior echo-free space seen. 4. Inferior vena cava is poorly visualized. Electronically signed by : Jacobo Isabel MD 10/31/2021 16:54:54
--- NOTE | 2021-10-31 06:53 | CA_ITS ---
APPROVED REPORT Exam: Pharmacologic Technologist: Dara Ragland, Ht: 5 ft 6 in Wt: 229 lbs BSA: 2.12 m2 HR: 57 bpm BP: 120/52 mmHg Rhythm: SINUS BRADYCARDIA Medical History Medications: Levothyroxine,,,,, Aspirin,,,,, Ferrous sulfate,,,,, Tylenol,,,,, CloPIdogrel,,,,, BisOPROLOL,,,,, Dexamethasone,,,,, Lisinopri/HCTZ,,,,, Calcium CaRBONATE,,,,, Furosemide,,,,, DAbAGLIFLOZAN,,,,, CHloLINE,,,,, Allergies: No known drug allergies Stress Test Details Test: LEXISCAN HR Resting HR: 60 bpm Max Heart Rate (APMHR): 165.669709 bpm Max HR Achieved: 91 bpm Target HR (85% APMHR): 140.164081 bpm % of APMHR: 55.15 Recovery HR: 82 bpm BP Resting BP: 120/52 mmHg Max BP: 129/54 mmHg Recovery BP: 122.0/52.0 mmHg ECG Resting ECG: SINUS BRADYCARDIA Clinical Reason for Termination: Completed Protocol Exercise duration: 04:01 min Highest Stage Achieved: Exercise capacity: 1.0 METs Stress ECG Conclusion PT HAD NO CP. <1.[address] SEGMENT CHANGES. NON-DIAGNOSTIC Electronically signed by : Jacobo Isabel MD 10/31/2021 16:07:55
--- NOTE | 2021-10-31 06:53 | NM_ITS ---
APPROVED REPORT Exam: Nuclear Stress Test Indication: HTN, D.M., HYPERLIPIEDEMIA, ANGINA, C.P., SOB Patient Location: Outpatient Stress Tech: Dara Ragland [place] Tech:RYAN Núñez RT (R)(N)(M) Ht: 5 ft 7 in Wt: 210 lbs Bra Size: B HR: 57 bpm BP: 120/52 mmHg BSA: 2.07 m2 BMI: 32.8 History: HTN, D.M., HYPERLIPIEDEMIA, ANGINA, C.P., SOB Procedure: Patient received a 0.4 mg of intravenous Lexiscan, resting heart rate 57 bpm, resting blood pressure 120/52 mmHg, with Lexiscan maximum heart rate achived was 89 bpm which is Less than 85 % of the maximum predicted heart rate and blood pressure was 123/53 mmHg. With Lexiscan, patient denied any complaint of chest pain. Electrocardiogram Resting electrocardiogram shows sinus rhythm, with Lexiscan there is less than 1.[address] segment depression from the baseline EKG. The EKG portion of the Lexiscan is nondiagnostic. Cardiac Stress and Resting SPECT Images: Cardiac Stress and Resting SPECT images were obtained using technetium 99m Myoview 31.2 mCi stress and 10.02 mCi at rest. Gated SPECT for analysis of segmental wall motion and calculation of the ejection fraction also done. Cardiac stress and rest SPECT images show mild fixed defect in the anterior wall with normal contractility gated SPECT is likely secondary to soft tissue attenuation, no reversible ischemia seen. Computer derived ejection fraction is over 65% with no regional wall motion abnormality, right ventricle is normal size and contractility. Conclusion: 1. The EKG portion of the Lexiscan is nondiagnostic. 2. No scintigraphic evidence of reversible ischemia seen , computer derived ejection fraction is over 65% with no regional wall motion abnormality, right ventricle is normal size and contractility per 3. Likely normal Lexiscan Myoview study. Electronically signed by : Jacobo Isabel MD 10/31/2021 16:11:01
== END ==
PROVIDERS: PCP Nurse Practitioner Family; Visit Provider Nurse Practitioner Family
DX: R06.00 Dyspnea, unspecified (principal); I20.9 Angina pectoris, unspecified; I10 Essential (primary) hypertension; E78.5 Hyperlipidemia, unspecified; Z95.5 Presence of coronary angioplasty implant and graft
CPT/HCPCS: 78452; 93017; 93306; A9502; J2785

== ENCOUNTER → 2021-11-03 10:38 | Day surgery (SDC) | payer BC, SELFPAY ==
[2021-11-03] VITALS (11 sets, daily range): BP systolic 105–152; BP diastolic 53–69; PULSE 60–72; RESP 20; O2SAT 93–100; BMI 36.9
--- NOTE | 2021-11-03 10:42 | IR_ITS ---
APPROVED REPORT Patient Location: Outpatient Manager Brand: RYAN Grullon RT (R) PROCEDURES Left heart catheterization Left ventriculogram Selective coronary angiogram INDICATION Known multivessel coronary disease, Crescendo angina Informed consent was obtained prior to the procedure. COMPLICATIONS NONE Estimated Blood Loss: LESS THAN 10 ML TECHNIQUE One percent lidocaine used to anesthetize the right anterior aspect of the wrist. The right radial artery was accessed via the Seldinger technique. A 6 Citizen [place] sheath was placed in the right radial artery. 2.5 mg of verapamil, 800 mcg of nitroglycerin, 1mg Lidocaine and 5000 U Heparin were given through the arterial sheath. The papa catheter was also used to perform left heart catheterization, left ventriculogram and selective coronary angiogram. At the end of the procedure the sheath was removed good hemostasis was achieved using Traclet band, patient was transferred to the postop holding area in stable condition. ANGIOGRAPHIC RESULTS The left main artery Normal The left anterior descending artery Has proximal 30% stenoses with a long mid vessel 30 to 40% stenosis accompanied by SHABBIR III flow The circumflex artery Nondominant yet still large with a stent in the proximal segment which is widely patent free of in-stent restenosis with excellent proximal distal transitioning The right coronary artery Is a dominant vessel and has a stent in the proximal to mid segment. The midportion of the stent has eccentric 30% in-stent restenosis The BALDWIN ventriculogram reveals Hyperdynamic at 75% The left ventricular end-diastolic pressure 35 mmHg IMPRESSION Patent coronary arteries as described above with moderate disease in the mid LAD which is possibly flow-limiting Severely elevated LVEDP making FFR test nondiagnostic should the FFR test be performed Hyperdynamic ventricle Angina pectoris likely stemming from diastolic dysfunction PLAN 1. Patient is SHABBIR-3 flow down all vessels however is complaining of chest tightness. This almost certainly stems from severely elevated LVEDP which requires treatment. 2. We will start low-dose diuretics in order to decrease LVEDP. After diastolic dysfunction has been treated if patient continues to have recalcitrant symptoms I would consider bringing her back and performing FFR in the LAD. It is possible this vessel has a hemodynamically significant stenosis however I believe patient symptoms currently stemming from the elevated EDP 3. Risk factor modification Electronically signed by : Paul Flores MD 11/03/2021 12:21:07
[2021-11-03 10:43] LABS: Coronavirus 19, PCR Not Detected (NotDetected); Influenza A, PCR Not Detected (NotDetected); Influenza B, PCR Not Detected (NotDetected)
[2021-11-03 11:16] LABS: Basophils # 0.1 K/mm3 (0-0.2); Basophils % 1.2 % (0.1-2.0); Eosinophils # 0.1 K/mm3 (0.0-0.4); Eosinophils % 1.7 % (0.1-12.0); Hemoglobin 11.7 g/dL (12.2-16.2); Lymphocytes # 1.3 K/mm3 (0.7-4.5); Lymphocytes % 19.8 % (10-50); Mean Corpuscular HGB Conc 32.6 g/dL (31.8-35.4); Mean Corpuscular Hemoglobin 29.6 pg (27.0-31.2); Mean Platelet Volume 8.2 fl (7.4-10.4); Monocytes # 0.3 K/mm3 (0.1-1.0); Monocytes % 4.5 % (1.7-9.3); Neutrophils # 4.9 K/mm3 (1.8-7.8); Neutrophils % 72.8 % (37.0-80.0); Platelet Count 344 K/mm3 (142-424); Red Blood Count 3.96 M/mm3 (4.20-5.40); Red Cell Distribution Width 13.2 % (11.5-17.5); White Blood Count 6.8 K/mm3 (4.8-10.8)
[2021-11-03 11:53] LABS: Anion Gap 11.9 mEq/L (5-15); Blood Urea Nitrogen 30 mg/dl (7-17); Calcium 9.4 mg/dl (8.4-10.2); Carbon Dioxide 30 mmol/L (22.0-30.0); Chloride 103 mmol/L (98-107); Creatinine Clearance Estimated 69 mL/min (50-200); Estimated Glomerular Filt Rate 36 ml/min (>60); GFR (African American) 44 ML/MIN (>60); Glucose 187 mg/dl (74-100); Potassium 3.9 mmoL/L (3.5-5.1); Sodium 141 mmol/L (136-145)
== END ==
PROVIDERS: PCP Nurse Practitioner Family; Visit Provider Internal Medicine
DX: I25.118 Atherosclerotic heart disease of native coronary artery with other forms of angina pectoris (principal); I10 Essential (primary) hypertension; E78.2 Mixed hyperlipidemia
CPT/HCPCS: 36415; 80048; 85025; 93458; 99152; C1725; C1760; C1769; C9803; J1644; Q9966; U0003; U0005

== ENCOUNTER → 2021-11-13 10:17 | Outpatient (CLI) | payer BC, SELFPAY ==
[2021-11-13 11:54] LABS: Chloride 99 mmol/L (98-107)
[2021-11-13 11:55] LABS: Potassium 4.7 mmoL/L (3.5-5.1); Sodium 135 mmol/L (136-145)
[2021-11-13 11:57] LABS: Blood Urea Nitrogen 41 mg/dl (7-17); Estimated Glomerular Filt Rate 31 ml/min (>60); GFR (African American) 38 ML/MIN (>60)
[2021-11-13 11:58] LABS: Anion Gap 10.7 mEq/L (5-15); Carbon Dioxide 30 mmol/L (22.0-30.0); Glucose 353 mg/dl (74-100)
== END ==
PROVIDERS: PCP Nurse Practitioner Family; Visit Provider Physician Assistant
DX: R06.02 Shortness of breath (principal); I10 Essential (primary) hypertension; I20.8 Other forms of angina pectoris; E10.8 Type 1 diabetes mellitus with unspecified complications; E78.2 Mixed hyperlipidemia; Z95.5 Presence of coronary angioplasty implant and graft; Z79.4 Long term (current) use of insulin
CPT/HCPCS: 36415; 80048

== ENCOUNTER → 2021-11-19 09:59 | Outpatient (CLI) | payer BC, SELFPAY ==
[2021-11-19 10:48] LABS: Anion Gap 13.3 mEq/L (5-15); Blood Urea Nitrogen 55 mg/dl (7-17); Calcium 10.4 mg/dl (8.4-10.2); Carbon Dioxide 29 mmol/L (22.0-30.0); Chloride 101 mmol/L (98-107); Estimated Glomerular Filt Rate 29 ml/min (>60); GFR (African American) 35 ML/MIN (>60); Glucose 311 mg/dl (74-100); Potassium 4.3 mmoL/L (3.5-5.1); Sodium 139 mmol/L (136-145)
[2021-11-19 10:55] LABS: NT Pro Brain Natriuretic Pep. 252 pg/mL (0-125)
== END ==
PROVIDERS: Visit Provider Physician Assistant
DX: Z01.812 Encounter for preprocedural laboratory examination (principal); Z11.52 Encounter for screening for COVID-19; R06.00 Dyspnea, unspecified; I20.0 Unstable angina; I20.8 Other forms of angina pectoris; I10 Essential (primary) hypertension; E78.5 Hyperlipidemia, unspecified; E10.9 Type 1 diabetes mellitus without complications; Z95.5 Presence of coronary angioplasty implant and graft; Z79.4 Long term (current) use of insulin
CPT/HCPCS: 36415; 80048; 83880; C9803; U0003; U0005

== ENCOUNTER → 2021-11-24 11:31 | Outpatient (CLI) | payer BC, SELFPAY | PROVIDERS: Visit Provider Internal Medicine | DX: Z01.812 Encounter for preprocedural laboratory examination (principal); Z11.52 Encounter for screening for COVID-19; I20.9 Angina pectoris, unspecified; I10 Essential (primary) hypertension; E78.5 Hyperlipidemia, unspecified; Z95.5 Presence of coronary angioplasty implant and graft | CPT/HCPCS: C9803; U0003; U0005 ==

== ENCOUNTER 2021-11-25 07:43 | Day surgery (SDC) | payer BC, SELFPAY ==
[2021-11-25] VITALS (12 sets, daily range): BP systolic 89–153; BP diastolic 46–73; PULSE 59–76; RESP 18–19; TEMP 36.8; O2SAT 91–96; BMI 36.4
--- NOTE | 2021-11-25 | IR_ITS ---
APPROVED REPORT Patient Location: Outpatient [employer] Operator: RYAN Grullon RT (R) PROCEDURES Selective coronary angiogram FFR to the LAD Drug-eluting stent deployment to the proximal mid LAD in a contiguous manner intravascular ultrasound of the LAD INDICATION Recalcitrant class IV angina pectoris, Angiographically indeterminate coronary artery disease, Calcified noncompliant proximal LAD Informed consent was obtained prior to the procedure. COMPLICATIONS None Estimated Blood Loss: Less than 10 mls TECHNIQUE One percent lidocaine used to anesthetize the right anterior aspect of the wrist. The right radial artery was accessed via the Seldinger technique. A 6 [place] sheath was placed in the right radial artery. 2.5 mg of verapamil, 800 mcg of nitroglycerin, 1mg Lidocaine and 5000 U Heparin were given through the arterial sheath. The papa catheter was also used to perform selective coronary angiogram. There was angiographically moderate/ambiguous disease involving the mid LAD therefore it was decided to perform FFR interrogation. Therapeutic heparin was administered giving a therapeutic ACT and a Choice PT extra-support wire was placed distally in the LAD. A nevus FFR catheter was equalized in the ascending aorta. There was significant difficulty in traversing the calcified stenosis in the mid LAD. The nevus catheter could be eventually placed into the distal LAD with an immediate drop of the FFR index to 0.84. With adenosine infusion the FFR index dropped to 0.64. The catheter was removed and a 2.5 x 27 mm noncompliant balloon was deployed in the mid LAD at 20 clair. There was extensive calcification in the proximal segment with persistent significant difficulty in getting the balloon past the proximal LAD and mid LAD. A 3.0 x 38 mm resolute Enrique stent was placed in the proximal LAD and deployed at 24 clair reducing the stenosis to 30%. An additional 2.5 x 38 mm resolute Enrique stent was placed distal to the first stent yet still overlapping it and deployed at 20 clair. The balloon was brought back between the 2 areas and deployed at 24 clair. A 3 mm noncompliant balloon was deployed at 24 clair in the proximal LAD to post dilate and under deployed stent. At this point intravascular ultrasound probe was advanced however the probe could not traverse the under deployed stent. With this a 3.25 x 12 mm noncompliant balloon was deployed at 24 clair in the area of interest. When this did not reduce the stenosis a 3.5 mm x 8 mm noncompliant balloon was deployed at 24 clair and then up to 28 clair. Following this a 3.75 x 8 mm noncompliant balloon was then deployed at 28 clair also failing to reduce the stenosis. A 4 mm x 8 mm noncompliant balloon was then placed in the area and deployed at 20 clair for 30 seconds this time reducing the stenosis but not entirely. Intravascular ultrasound probe was placed back into the area and the MLA was measured at 5.6 mm???. ANGIOGRAPHIC RESULTS The left main artery Normal The left anterior descending artery Has proximal concentric 20 to 30% stenosis followed by an additional 30 to 40% stenosis followed by mid vessel 50% calcified stenoses followed by an additional eccentric mid vessel 40 to 50% stenosis. By IVUS criteria and FFR criteria the angiogram severely underestimated the severity of the disease The circumflex artery Is codominant and has a proximal concentric 30% stenosis within the stent. The remaining vessel is widely patent The right coronary artery Is a codominant vessel and has diffuse 30% stenosis The BALDWIN ventriculogram reveals Not performed The left ventricular end-diastolic pressure Not measured IMPRESSION Coronary disease as described above Succe
[2021-11-25 09:22] LABS: Basophils # 0.1 K/mm3 (0-0.2); Basophils % 1.4 % (0.1-2.0); Eosinophils # 0.2 K/mm3 (0.0-0.4); Eosinophils % 2.8 % (0.1-12.0); Hematocrit 35.4 % (37.0-47.0); Hemoglobin 11.7 g/dL (12.2-16.2); Lymphocytes # 1.4 K/mm3 (0.7-4.5); Lymphocytes % 21.3 % (10-50); Mean Corpuscular Hemoglobin 29.9 pg (27.0-31.2); Mean Corpuscular Volume 90.8 fl (81-99); Mean Platelet Volume 8.3 fl (7.4-10.4); Monocytes # 0.4 K/mm3 (0.1-1.0); Monocytes % 5.8 % (1.7-9.3); Neutrophils # 4.6 K/mm3 (1.8-7.8); Neutrophils % 68.8 % (37.0-80.0); Platelet Count 289 K/mm3 (142-424); White Blood Count 6.7 K/mm3 (4.8-10.8)
[2021-11-25 09:25] LABS: Chloride 101 mmol/L (98-107)
[2021-11-25 09:26] LABS: Potassium 4.5 mmoL/L (3.5-5.1); Sodium 135 mmol/L (136-145)
[2021-11-25 09:28] LABS: Blood Urea Nitrogen 39 mg/dl (7-17); Creatinine Clearance Estimated 61 mL/min (50-200); Estimated Glomerular Filt Rate 31 ml/min (>60); GFR (African American) 38 ML/MIN (>60)
[2021-11-25 09:29] LABS: Anion Gap 11.5 mEq/L (5-15); Calcium 9.3 mg/dl (8.4-10.2); Carbon Dioxide 27 mmol/L (22.0-30.0); Glucose 277 mg/dl (74-100)
[2021-11-25 13:01] LABS: CATHL Activated Clotting Time > 400 SEC (74-125)
--- NOTE | 2021-11-25 15:56 | HMH.PHACLD ---
Jeannette Tran has received discharge medication counseling on the following medications: PATIENT IS CURRENTLY TAKING PLAVIX 75 MG DAILY, ASPIRIN 81 MG DAILY, BISOPROLOL 10 MG DAILY, LISINOPRIL 10 MG DAILY, AND CRESTOR 40 MG HS.
== END 2021-11-25 15:14 | disposition home or self-care (01) ==
LOC: CATHLAB 07:44
PROVIDERS: PCP Nurse Practitioner Family; Visit Provider Internal Medicine
DX: I25.118 Atherosclerotic heart disease of native coronary artery with other forms of angina pectoris (principal); E11.9 Type 2 diabetes mellitus without complications; Z79.4 Long term (current) use of insulin; I10 Essential (primary) hypertension; Z95.5 Presence of coronary angioplasty implant and graft; E78.5 Hyperlipidemia, unspecified; K21.9 Gastro-esophageal reflux disease without esophagitis; Z79.899 Other long term (current) drug therapy; E03.8 Other specified hypothyroidism
CPT/HCPCS: 80048; 85025; 85347; 92928; 92978; 93571; 99152; 99153; C1725; C1760; C1769; C1874; C1876; C9600; J0153; J1644; Q9967

== ENCOUNTER → 2021-12-01 09:45 | Outpatient (CLI) | payer BC, SELFPAY ==
[2021-12-01 10:10] LABS: Basophils # 0.1 K/mm3 (0-0.2); Basophils % 1.1 % (0.1-2.0); Eosinophils # 0.2 K/mm3 (0.0-0.4); Hematocrit 36.7 % (37.0-47.0); Hemoglobin 12.2 g/dL (12.2-16.2); Lymphocytes # 1.9 K/mm3 (0.7-4.5); Mean Corpuscular HGB Conc 33.1 g/dL (31.8-35.4); Mean Corpuscular Volume 90.5 fl (81-99); Mean Platelet Volume 8.1 fl (7.4-10.4); Monocytes # 0.3 K/mm3 (0.1-1.0); Monocytes % 3.9 % (1.7-9.3); Neutrophils # 4.5 K/mm3 (1.8-7.8); Neutrophils % 65.1 % (37.0-80.0); Platelet Count 317 K/mm3 (142-424); Red Blood Count 4.06 M/mm3 (4.20-5.40); White Blood Count 6.9 K/mm3 (4.8-10.8)
[2021-12-01 10:49] LABS: Anion Gap 8.2 mEq/L (5-15); Blood Urea Nitrogen 32 mg/dl (7-17); Calcium 9.8 mg/dl (8.4-10.2); Carbon Dioxide 30 mmol/L (22.0-30.0); Chloride 103 mmol/L (98-107); Estimated Glomerular Filt Rate 33 ml/min (>60); GFR (African American) 40 ML/MIN (>60); Glucose 146 mg/dl (74-100); Potassium 4.2 mmoL/L (3.5-5.1); Sodium 137 mmol/L (136-145)
== END ==
PROVIDERS: PCP Nurse Practitioner Family; Visit Provider Internal Medicine
DX: I25.118 Atherosclerotic heart disease of native coronary artery with other forms of angina pectoris (principal)
CPT/HCPCS: 36415; 80048; 85025

== ENCOUNTER → 2022-01-01 12:01 | Outpatient (CLI) | payer BC, SELFPAY ==
--- NOTE | 2022-01-01 12:09 | XR_ITS ---
FINAL REPORT CLINICAL HISTORY: pain FINDINGS: RIGHT FOOT 3 views of the right foot were obtained. There is no acute fracture or dislocation. There is mild degenerative change of the 1st MTP. There is a small posterior calcaneal spur. Soft tissues are unremarkable. IMPRESSION: Degenerative change with no acute bony abnormality. Reviewed, Interpreted and Dictated by Joaquim Flores III, MD Transcribed by Kathi Anaya Authenticated and . [facility]
--- NOTE | 2022-01-01 12:09 | XR_ITS ---
FINAL REPORT CLINICAL HISTORY: PAIN IN THE RT AND LT FOOT. (ANTINUCLEAR ANTIBODY) FINDINGS: LEFT FOOT Three views of the left foot demonstrate no acute fracture or dislocation. The visualized joint spaces are normally aligned. There is a small posterior calcaneal spur. There is mild vascular calcification. IMPRESSION: No acute bony abnormality. Reviewed, Interpreted and Dictated by Joaquim Flores III, MD Transcribed by Kathi Anaya Authenticated and . [facility]
== END ==
PROVIDERS: PCP Nurse Practitioner Family; Visit Provider Nurse Practitioner Family
DX: M79.672 Pain in left foot (principal); M79.671 Pain in right foot; R76.8 Other specified abnormal immunological findings in serum
CPT/HCPCS: 73630

== ENCOUNTER → 2022-03-07 09:22 | Outpatient (CLI) | payer BC, SELFPAY ==
[2022-03-07 09:54] LABS: Basophils # 0.1 K/mm3 (0-0.2); Basophils % 0.9 % (0.1-2.0); Eosinophils # 0.2 K/mm3 (0.0-0.4); Hematocrit 39.8 % (37.0-47.0); Hemoglobin 12.1 g/dL (12.2-16.2); Lymphocytes # 1.8 K/mm3 (0.7-4.5); Lymphocytes % 18.1 % (10-50); Mean Corpuscular HGB Conc 30.4 g/dL (31.8-35.4); Mean Corpuscular Hemoglobin 28.5 pg (27.0-31.2); Mean Corpuscular Volume 93.5 fl (81-99); Monocytes # 0.3 K/mm3 (0.1-1.0); Monocytes % 3.4 % (1.7-9.3); Neutrophils # 7.4 K/mm3 (1.8-7.8); Neutrophils % 75.5 % (37.0-80.0); Platelet Count 434 K/mm3 (142-424); Red Blood Count 4.25 M/mm3 (4.20-5.40); Red Cell Distribution Width 13.1 % (11.5-17.5); White Blood Count 9.8 K/mm3 (4.8-10.8)
[2022-03-07 10:32] LABS: Anion Gap 9.4 mEq/L (5-15); Blood Urea Nitrogen 32 mg/dl (7-17); Calcium 9.7 mg/dl (8.4-10.2); Carbon Dioxide 31 mmol/L (22.0-30.0); Chloride 106 mmol/L (98-107); Estimated Glomerular Filt Rate 26 ml/min (>60); GFR (African American) 31 ML/MIN (>60); Potassium 4.4 mmoL/L (3.5-5.1); Sodium 142 mmol/L (136-145)
[2022-03-07 10:52] LABS: Glucose 48 mg/dl (74-100)
== END ==
PROVIDERS: PCP Nurse Practitioner Family; Visit Provider Internal Medicine
DX: Z01.812 Encounter for preprocedural laboratory examination; Z20.822 Contact with and (suspected) exposure to COVID-19; I20.8 Other forms of angina pectoris; I10 Essential (primary) hypertension; E11.9 Type 2 diabetes mellitus without complications; E78.2 Mixed hyperlipidemia; I63.9 Cerebral infarction, unspecified; Z95.5 Presence of coronary angioplasty implant and graft
CPT/HCPCS: 36415; 80048; 85025; C9803; U0003; U0005

== ENCOUNTER 2022-03-09 08:55 | Day surgery (SDC) | payer BC, SELFPAY ==
[2022-03-09] VITALS (12 sets, daily range): BP systolic 99–139; BP diastolic 49–88; PULSE 54–64; RESP 17–20; O2SAT 92–100; BMI 36.5
--- NOTE | 2022-03-09 | IR_ITS ---
APPROVED REPORT Patient Location: Outpatient Supervisor Hand Workers: RYAN Millan RT (R) PROCEDURES Right heart catheterization Left heart catheterization Selective coronary angiogram Left ventriculogram INDICATION Recalcitrant angina pectoris, Recalcitrant congestive heart failure symptoms Informed consent was obtained prior to the procedure. COMPLICATIONS NONE Estimated Blood Loss: LESS THAN 10 ML TECHNIQUE One percent lidocaine was used to anesthetize the right anterior aspect of the right wrist. The right radial artery was accessed via the Seldinger technique and a 6 [place] hydrophilic sheath was placed in the right radial artery. Following this one percent lidocaine was used to anesthetize the right anterior aspect of the right neck. The right internal jugular vein was accessed via the Seldinger technique and a 7 [place] sheath was placed in the right internal jugular vein. Following this an arterial cocktail was administered using 5000U heparin, 2.5 mg verapamil, 1mg Lidocaine and 800mcg nitroglycerin into the right radial sheath. A papa catheter was used to perform left heart catheterization left ventriculogram and selective coronary angiography while a [place] catheter was used to perform right heart catheterization. Saturations were obtained in the pulmonary artery and right atrium. At the end of the procedure the arterial sheath was removed good hemostasis was achieved using Traclet band. Patient was transferred to the postop holding area in stable condition for venous sheath removal. ANGIOGRAPHIC RESULTS The left main artery Has a distal 10 to 20% stenosis The left anterior descending artery Has an ostial 10 to 20% stenosis followed by a stent in the proximal through mid segment which is widely patent free of in-stent restenosis with excellent proximal distal transitioning. The LAD is a large-caliber vessel The circumflex artery Is a large codominant vessel and has stents throughout the proximal and midportion. Proximally there is a mostly eccentric 30 to 40% nonflow limiting stenosis representing in-stent restenosis The right coronary artery Is a codominant vessel and has stents in the proximal to mid segment which are widely patent with the midportion have an eccentric 30 to 40% nonflow limiting in-stent restenotic lesion The BALDWIN ventriculogram reveals Not performed The left ventricular end-diastolic pressure 25 mmHg Right atrial pressure 15 mmHg Pulmonary artery pressure 35/22 mmHg Pulmonary occlusion pressure 22 mmHg Right atrial saturation 75% Pulmonary artery saturation 73% Aortic saturation 90% Hemoglobin 12.1 Cardiac output 7.5 L/min IMPRESSION Coronary disease as described above with wide patency of the stents and nonflow limiting in-stent restenosis Mild pulmonary hypertension accompanied by mild diastolic dysfunction involving the left ventricle and moderate right-sided heart failure PLAN 1. Continue diuresis 2. I would like to evaluate patient with a cardiac MRI to make sure there is no infiltrative process going on given her near equalization of pressures suggesting a possible restrictive cardiomyopathy 3. Continue risk factor modification 4. Salt and fluid restriction while maximizing antianginals Electronically signed by : Paul Flores MD 03/09/2022 13:05:27
[2022-03-09 12:47] LABS: CATHL Arterial O2 SAT 73 % (90-100); CATHL Venous O2 SAT 75 % (75-80)
== END 2022-03-09 14:29 | disposition home or self-care (01) ==
LOC: CATHLAB 08:56
PROVIDERS: PCP Nurse Practitioner Family; Visit Provider Internal Medicine
DX: I27.20 Pulmonary hypertension, unspecified (principal); E11.9 Type 2 diabetes mellitus without complications; Z79.4 Long term (current) use of insulin; Z79.899 Other long term (current) drug therapy; I25.118 Atherosclerotic heart disease of native coronary artery with other forms of angina pectoris; I10 Essential (primary) hypertension; K21.9 Gastro-esophageal reflux disease without esophagitis; E78.5 Hyperlipidemia, unspecified; E03.9 Hypothyroidism, unspecified; Z95.5 Presence of coronary angioplasty implant and graft; T82.855A Stenosis of coronary artery stent, initial encounter
CPT/HCPCS: 82810; 93460; 99152; C1725; C1769; C1894; J1644; Q9967

== ENCOUNTER → 2022-03-16 15:48 | Outpatient (CLI) | payer BC, SELFPAY ==
[2022-03-16 18:01] LABS: Basophils # 0.1 K/mm3 (0-0.2); Basophils % 1.4 % (0.1-2.0); Eosinophils # 0.1 K/mm3 (0.0-0.4); Eosinophils % 1.1 % (0.1-12.0); Hematocrit 43.6 % (37.0-47.0); Hemoglobin 13.4 g/dL (12.2-16.2); Lymphocytes # 1.6 K/mm3 (0.7-4.5); Lymphocytes % 17.6 % (10-50); Mean Corpuscular HGB Conc 30.8 g/dL (31.8-35.4); Mean Corpuscular Hemoglobin 28.8 pg (27.0-31.2); Mean Corpuscular Volume 93.5 fl (81-99); Mean Platelet Volume 7.9 fl (7.4-10.4); Monocytes # 0.7 K/mm3 (0.1-1.0); Monocytes % 8.1 % (1.7-9.3); Neutrophils # 6.4 K/mm3 (1.8-7.8); Neutrophils % 71.8 % (37.0-80.0); Platelet Count 584 K/mm3 (142-424); Red Blood Count 4.66 M/mm3 (4.20-5.40); Red Cell Distribution Width 13.2 % (11.5-17.5); White Blood Count 8.9 K/mm3 (4.8-10.8)
[2022-03-16 19:39] LABS: Alanine Aminotransferase 16 U/L (12-78); Albumin Level 4.4 g/dl (3.5-5.0); Albumin/Globulin Ratio 1.5 (1.1-1.8); Alkaline Phosphatase 75 U/L (38-126); Amylase 202 U/L (30-110); Anion Gap 18.2 mEq/L (5-15); Aspartate Amino Transferase 28 U/L (14-36); Bilirubin,Total 0.4 mg/dl (0.2-1.3); Calcium 10.1 mg/dl (8.4-10.2); Carbon Dioxide 30 mmol/L (22.0-30.0); Chloride 95 mmol/L (98-107); Estimated Glomerular Filt Rate 9 ml/min (>60); GFR (African American) 11 ML/MIN (>60); Glucose 67 mg/dl (74-100); Potassium 5.2 mmoL/L (3.5-5.1); Sodium 138 mmol/L (136-145); Total Protein,Serum 7.4 g/dl (6.3-8.2)
[2022-03-16 20:06] LABS: Blood Urea Nitrogen 86 mg/dl (7-17)
[2022-03-16 20:07] LABS: Lipase 890 U/L (23-300)
== END ==
PROVIDERS: PCP Nurse Practitioner Family; Visit Provider Nurse Practitioner Family
DX: R10.13 Epigastric pain (principal); R11.2 Nausea with vomiting, unspecified
CPT/HCPCS: 36415; 80053; 82150; 83690; 85025

== ENCOUNTER 2022-03-16 20:59 | Inpatient (IN) | payer BC, SELFPAY ==
[2022-03-16 21:29] VITALS: BP 131/64; PULSE 86; RESP 18; TEMP 36.8; O2SAT 95; BMI 35.4
[2022-03-16 21:30] VITALS: BP 131/64; O2SAT 95
--- NOTE | 2022-03-16 21:40 | XR_ITS ---
PROCEDURE INFORMATION: Exam: XR Chest Exam date and time: 03/16/2022 9:47 PM Age: 56 years old Clinical indication: Other: Upper abd pain; Additional info: Epigastric pain TECHNIQUE: Imaging protocol: Radiologic exam of the chest. Views: 2 views. COMPARISON: CR XR CHEST PORTABLE 07/19/2021 7:58 PM FINDINGS: Lungs: Unremarkable. No consolidation. Pleural spaces: Unremarkable. No pleural effusion. No pneumothorax. Heart/Mediastinum: Unremarkable. No cardiomegaly. Bones/joints: Unremarkable. Intraperitoneal space: No pneumoperitoneum. Organs: Cholecystectomy clips are noted. IMPRESSION: No acute cardiopulmonary abnormality.
--- NOTE | 2022-03-16 21:41 | ECG_ITS ---
APPROVED REPORT Exam: Resting ECG HR:80 bpm ECG Measurements Heart Rate 80 AXES ND 155 P 56 QRSd 94 QRS 10 QT 365 T 7 QTc 401 Conclusion SINUS RHYTHM LOW QRS VOLTAGE IN PRECORDIAL LEADS [QRS DEFLECTION < 1.0 mV IN CHEST LEADS] POSSIBLE ANTERIOR MYOCARDIAL INFARCTION , OF INDETERMINATE AGE [30 ms Q WAVE IN V3/V4, OR R < 0.2 mV IN V4] ABNORMAL ECG UNCONFIRMED REPORT Electronically signed by : Judson Lizarraga MD 03/17/2022 21:24:34
[2022-03-16 21:50] LABS: Coronavirus 19, PCR Not Detected (NotDetected); Influenza A, PCR Not Detected (NotDetected); Influenza B, PCR Not Detected (NotDetected)
[2022-03-16 22:00] VITALS: BP 129/104; O2SAT 96
[2022-03-16 22:08] LABS: Basophils # 0.1 K/mm3 (0-0.2); Eosinophils # 0.1 K/mm3 (0.0-0.4); Eosinophils % 0.7 % (0.1-12.0); Hematocrit 43.8 % (37.0-47.0); Hemoglobin 13.3 g/dL (12.2-16.2); Lymphocytes # 1.4 K/mm3 (0.7-4.5); Lymphocytes % 15.2 % (10-50); Mean Corpuscular HGB Conc 30.3 g/dL (31.8-35.4); Mean Corpuscular Hemoglobin 28.7 pg (27.0-31.2); Mean Corpuscular Volume 94.8 fl (81-99); Mean Platelet Volume 7.9 fl (7.4-10.4); Monocytes # 0.4 K/mm3 (0.1-1.0); Monocytes % 4.8 % (1.7-9.3); Neutrophils # 7.1 K/mm3 (1.8-7.8); Neutrophils % 78.3 % (37.0-80.0); Platelet Count 532 K/mm3 (142-424); Red Blood Count 4.62 M/mm3 (4.20-5.40); Red Cell Distribution Width 13.5 % (11.5-17.5); White Blood Count 9.1 K/mm3 (4.8-10.8)
[2022-03-16 22:22] LABS: NT Pro Brain Natriuretic Pep. 80.3 pg/mL (0-125)
[2022-03-16 22:30] VITALS: BP 129/59; O2SAT 98
--- NOTE | 2022-03-16 22:38 | PC.NURSE ---
Pt updated on POC. No needs or complaints voiced at this times.
[2022-03-16 22:40] LABS: Erythrocyte Sedimentation Rate 21 mm/hr (0-30)
[2022-03-16 22:51] LABS: Alanine Aminotransferase 31 U/L (12-78); Albumin Level 4.5 g/dl (3.5-5.0); Albumin/Globulin Ratio 1.3 (1.1-1.8); Alkaline Phosphatase 59 U/L (38-126); Amylase 196 U/L (30-110); Anion Gap 20.8 mEq/L (5-15); Aspartate Amino Transferase 51 U/L (14-36); Bilirubin,Total 0.7 mg/dl (0.2-1.3); Calcium 9.8 mg/dl (8.4-10.2); Carbon Dioxide 21 mmol/L (22.0-30.0); Chloride 97 mmol/L (98-107); Creatinine Clearance Estimated 20 mL/min (50-200); Estimated Glomerular Filt Rate 9 ml/min (>60); GFR (African American) 11 ML/MIN (>60); Globulin 3.4 g/dL (1.3-3.2); Glucose 261 mg/dl (74-100); Potassium 4.8 mmoL/L (3.5-5.1); Sodium 134 mmol/L (136-145); Total Protein,Serum 7.9 g/dl (6.3-8.2)
[2022-03-16 22:54] LABS: Blood Urea Nitrogen 87 mg/dl (7-17); Lipase 768 U/L (23-300)
--- NOTE | 2022-03-16 22:54 | PC.NURSE ---
Diana from lab called critical value Bun 87, Cr 5.1 and lipase 768. notified.
[2022-03-16 22:57] LABS: C-Reactive Protein 6.9 mg/L (0-4)
[2022-03-16 23:00] VITALS: BP 119/56; O2SAT 97
[2022-03-16 23:06] LABS: Troponin I < 0.01 ng/ml (0.00-0.034)
[2022-03-16 23:11] LABS: Procalcitonin 0.276 ng/mL (0.0-2.0); T4 (Thyroxine) 10.1 ug/dl (5.53-11.0)
--- NOTE | 2022-03-16 23:16 | HMH.EDNVD ---
ED Disposition Clinical Impression: URSULA (acute kidney injury) Acute pancreatitis Qualifiers: Pancreatitis type: unspecified pancreatitis type Acute pancreatitis complication: no infection or necrosis Qualified Code(s): K85.90 - Acute pancreatitis without necrosis or infection, unspecified Disposition: Admitted As Inpatient Condition on Discharge: Fair - Critical Care Critical Care Time: No Attestation: On 03/16/22, the high probability of a clinically significant, sudden or life threatening deterioration of the following system(s) required my full and direct attention, intervention and personal management. The time I documented below is in addition to time spent performing reported procedures but includes the following listed in this critical care notation. Medical Decision Making - Medical Records Medical records reviewed: Yes: I reviewed the patient's medical records. - Carl Inquiry Pt receiving controlled substance: No Vital Signs: 03/16/22 21:29 03/16/22 21:30 03/16/22 22:00 Temperature 98.3 F Temperature Source Oral Pulse Rate Pulse Rate [Apical] 86 Respiratory Rate 18 Blood Pressure 131/64 129/104 H Blood Pressure [Right Arm] 131/64 Blood Pressure Mean 86 112 Blood Pressure Mean [Right Arm] 86 Blood Pressure Source Blood Pressure Source [Right Arm] Automatic Cuff Blood Pressure Position Blood Pressure Position [Right Arm] Sitting 02 Sat by Pulse Oximetry 95 95 96 Oxygen Delivery Method Room Air Room Air Room Air 03/16/22 22:30 03/16/22 23:00 03/16/22 23:31 Temperature Temperature Source Pulse Rate Pulse Rate [Apical] Respiratory Rate Blood Pressure 129/59 L 119/56 L 115/54 L Blood Pressure [Right Arm] Blood Pressure Mean 82 77 Blood Pressure Mean [Right Arm] Blood Pressure Source Blood Pressure Source [Right Arm] Blood Pressure Position Blood Pressure Position [Right Arm] 02 Sat by Pulse Oximetry 98 97 94 L Oxygen Delivery Method Room Air Room Air Room Air 03/17/22 00:00 03/17/22 00:30 03/17/22 01:00 Temperature Temperature Source Pulse Rate Pulse Rate [Apical] Respiratory Rate Blood Pressure 127/56 L 134/57 L 144/62 H Blood Pressure [Right Arm] Blood Pressure Mean 78 84 89 Blood Pressure Mean [Right Arm] Blood Pressure Source Blood Pressure Source [Right Arm] Blood Pressure Position Blood Pressure Position [Right Arm] 02 Sat by Pulse Oximetry 95 96 96 Oxygen Delivery Method Room Air Room Air Room Air 03/17/22 01:30 03/17/22 02:00 03/17/22 02:02 Temperature 98 F Temperature Source Oral Pulse Rate 70 Pulse Rate [Apical] Respiratory Rate 18 Blood Pressure 128/58 L 127/57 L 120/56 L Blood Pressure [Right Arm] Blood Pressure Mean 80 84 Blood Pressure Mean [Right Arm] Blood Pressure Source Automatic Cuff Blood Pressure Source [Right Arm] Blood Pressure Position Sitting Blood Pressure Position [Right Arm] 02 Sat by Pulse Oximetry 94 L 95 Oxygen Delivery Method Room Air Room Air Room Air - Lab Data Lab results reviewed: Yes: I reviewed the patient's lab results. Lab Results 03/16/22 21:35: WBC 9.1, RBC 4.62, Hgb 13.3, Hct 43.8, MCV 94.8, MCH 28.7, MCHC 30.3 L, RDW 13.5, Plt Count 532 H, MPV 7.9, Neut % (Auto) 78.3, Lymph % (Auto) 15.2, [place] % (Auto) 4.8, Eos % (Auto) 0.7, Baso % (Auto) 1.0, Neut # (Auto) 7.1, Lymph # (Auto) 1.4, [place] # (Auto) 0.4, Eos # (Auto) 0.1, Baso # (Auto) 0.1, ESR 21 03/16/22 21:35: Sodium 134 L, Potassium 4.8, Chloride 97 L, Carbon Dioxide 21 L, Anion Gap 20.8 H, BUN 87 H, Creatinine 5.10 H, Estimated Creat Clear 20, Estimated GFR 9 L*, Est GFR ( Amer) 11 L*, Glucose 261 H D, Calcium 9.8, Total Bilirubin 0.7, AST 51 H D, ALT 31 D, Alkaline Phosphatase 59, Troponin I < 0.01, C-Reactive Protein 6.9 H, Total Protein 7.9, Albumin 4.5, Globulin 3.4 H, Albumin/Globulin Ratio 1.3, Amylase 196 H, Lipase 768 H, Procalcitonin 0.276
--- NOTE | 2022-03-16 23:18 | CT_ITS ---
PROCEDURE INFORMATION: Exam: CT Abdomen And Pelvis Without Contrast Exam date and time: 03/16/2022 11:19 PM Age: 56 years old Clinical indication: Abdominal pain; Localized; Upper; Prior surgery; Surgery type: Cholecystectomy and appendectomy; Additional info: Abd pain TECHNIQUE: Imaging protocol: Computed tomography of the abdomen and pelvis without contrast. Radiation optimization: All CT scans at this facility use at least one of these dose optimization techniques: automated exposure control; mA and/or kV adjustment per patient size (includes targeted exams where dose is matched to clinical indication); or iterative reconstruction. COMPARISON: CT ABDOMEN PELVIS WO CON 07/19/2021 7:53 PM FINDINGS: Lungs: Clear basilar lung parenchyma. Pleural spaces: No pleural fluid. Heart: Normal heart size. Liver: Normal. No mass. Gallbladder and bile ducts: Prior cholecystectomy. Pancreas: Normal. No ductal dilation. Spleen: Several splenic calcifications are noted. Spleen measures 11.8 cm. Adrenal glands: 1.7 cm left adrenal nodule demonstrates attenuation coefficient of-1 Hounsfield unit compatible with a lipid rich adenoma. Normal right adrenal. Kidneys and ureters: Kidneys are mildly atrophic and symmetric without evidence of obstruction. Stomach and bowel: Postprandial stomach. Normal caliber small bowel. Normal colon. Appendix: Prior appendectomy. Intraperitoneal space: Unremarkable. No free air. No significant fluid collection. Vasculature: Extensive aortoiliac calcific atherosclerosis with narrowing of the distal abdominal aortic lumen. Lymph nodes: Unremarkable. No enlarged lymph nodes. Urinary bladder: Unremarkable as visualized. Reproductive: Unremarkable as visualized. Bones/joints: Unremarkable. No acute fracture. Soft tissues: Unremarkable. IMPRESSION: 1. No structural abnormality identified to explain patient's abdomen pain. 2. Advanced arterial calcification for age and gender. There is no portal venous gas or pneumatosis to suggest bowel infarction currently, but a contrast enhanced exam would provide greater sensitivity for bowel ischemia if this is of clinical concern. COMMENTS: Consistent with the [employer]'s Incidental Findings Committee white paper (J Am Fidel Radiol 2017): For any incidental adrenal lesion greater than or equal to 1 cm but less than or equal to 4 cm classified in this report as benign, likely benign, or containing fat (including classification as an adenoma or myelolipoma), no follow-up imaging is recommended per consensus recommendations based on imaging criteria. Further lab evaluation could be pursued if warranted based on clinical findings.
[2022-03-16 23:26] LABS: Microscopic, Urine URINE MICROSCOPIC (MICROSCOPIC)
[2022-03-16 23:28] LABS: Appearance,Urine CLEAR (Clear); Bilirubin,Urine Negative (Negative); Blood, Urine 2+ (Negative); Color,Urine YELLOW (Yellow); Glucose,Urine (UA) Negative (Negative); Ketones,Urine Negative (Negative); Leukocyte Esterase,Urine Negative (Negative); Nitrate,Urine Negative (Negative); PH,Urine 5.5 (5.0-8.5); Protein,Urine Negative (Negative); Specific Gravity, Urine >= 1.030 (1.005-1.030); Urobilinogen,Urine 0.2 EU/dl (0.2)
[2022-03-16 23:30] LABS: Thyroid Stimulating Hormone 2.54 uIU/mL (0.465-4.68)
[2022-03-16 23:31] VITALS: BP 115/54; O2SAT 94
[2022-03-16 23:42] LABS: Bacteria,Urine Trace /lpf
[2022-03-17] VITALS (9 sets, daily range): BP systolic 120–156; BP diastolic 56–66; PULSE 65–78; RESP 18; TEMP 36.5–36.6; O2SAT 94–100
--- NOTE | 2022-03-17 01:15 | PC.NURSE ---
PATIENT ADMITTED TO [address] NISHA GAMBLE WITH DX OF ACUTE PANCREATITIS AND URSULA.
[2022-03-17 07:19] LABS: Chloride 102 mmol/L (98-107); Potassium 4.4 mmoL/L (3.5-5.1); Sodium 137 mmol/L (136-145)
[2022-03-17 07:21] LABS: Creatinine Clearance Estimated 24 mL/min (50-200); Estimated Glomerular Filt Rate 11 ml/min (>60); GFR (African American) 13 ML/MIN (>60)
[2022-03-17 07:22] LABS: Anion Gap 11.4 mEq/L (5-15); Carbon Dioxide 28 mmol/L (22.0-30.0); Cholesterol 208 mg/dl (140-200); Glucose 221 mg/dl (74-100); Triglycerides 379 mg/dl (30-150); VLDL Cholesterol 76 mg/dL (0-40)
[2022-03-17 07:23] LABS: HDL Cholesterol 31 mg/dl (40-60); Magnesium 2.2 mg/dl (1.6-2.3)
--- NOTE | 2022-03-17 07:23 | PC.NURSE ---
REPORT GIVEN TO REAL RASMUSSEN
[2022-03-17 07:27] LABS: Basophils % 0.7 % (0.1-2.0); Eosinophils # 0.1 K/mm3 (0.0-0.4); Eosinophils % 1.3 % (0.1-12.0); Hematocrit 37.5 % (37.0-47.0); Lymphocytes # 1.7 K/mm3 (0.7-4.5); Lymphocytes % 27.9 % (10-50); Mean Corpuscular HGB Conc 30.8 g/dL (31.8-35.4); Mean Corpuscular Hemoglobin 28.5 pg (27.0-31.2); Mean Corpuscular Volume 92.5 fl (81-99); Mean Platelet Volume 7.8 fl (7.4-10.4); Monocytes # 0.4 K/mm3 (0.1-1.0); Monocytes % 7.2 % (1.7-9.3); Neutrophils # 3.8 K/mm3 (1.8-7.8); Neutrophils % 62.9 % (37.0-80.0); Platelet Count 374 K/mm3 (142-424); Red Blood Count 4.06 M/mm3 (4.20-5.40); Red Cell Distribution Width 13.4 % (11.5-17.5)
[2022-03-17 07:28] LABS: Hemoglobin 11.6 g/dL (12.2-16.2)
[2022-03-17 07:35] LABS: Chol/HDL Ratio 6.7 (1-3.5)
--- NOTE | 2022-03-17 07:37 | P.CONPHA_ITS ---
[facility] Pharmacy VTE Monitoring - Patient Demographics Admission date: 03/16/22 Report Date: 03/17/22 Time: 07:37 Allergies/Adverse Reactions: Patient Allergies NSAIDS (Non-Steroidal Anti-Inflamma Adverse Reaction (Verified 03/16/22 21:43) Other Height: 1.7 m Weight: 102.512 kg Patient Problems: Current Active Problems (Last Updated 05/06/20 @ 09:13 by Kayla Tran RN) Acute pancreatitis (Acute) Acute kidney injury (Acute) - VTE Risk Labs: VTE Related Lab Results Hgb 11.6 g/dL (12.2-16.2) L D 03/17/22 06:55 Hct 37.5 % (37.0-47.0) 03/17/22 06:55 Plt Count 374 K/mm3 (142-424) D 03/17/22 06:55 BUN 87 mg/dl (7-17) H 03/16/22 21:35 Creatinine 5.10 mg/dl (0.52-1.04) H 03/16/22 21:35 Estimated Creat Clear 20 mL/min (50-200) 03/16/22 21:35 Was VTE Risk Assessment Performed: Yes VTE Score: 3 VTE Risk Level: Low Risk - Prophylaxis VTE Prophylaxis Ordered?: Yes Types of VTE Prophylaxis: TEDS Knee High Location of Applied Device: Bilateral Lower Extremeties
[2022-03-17 07:40] LABS: Blood Urea Nitrogen 85 mg/dl (7-17)
[2022-03-17 07:41] LABS: Lipase 669 U/L (23-300)
--- NOTE | 2022-03-17 08:10 | PC.NURSE ---
0740 Critical lab results received from Deuce Marie in the lab. Patients name, and lab results R/V. BUN 85, creat 4.2 and lipase 669. Will notify
--- NOTE | 2022-03-17 11:47 | HMH.HP ---
*Admission Date: 03/16/22 *Chief complaint: abdominal pain, vomiting *History of present illness: 56-year-old female recently started on diuretic in the outpatient setting who presented to clinic yesterday for lab work. Found to have significant increase in her creatinine. Of note she also states that she has been having upper abdominal pain since Wednesday accompanied by nausea and vomiting. No diarrhea. No fever. Additionally concerning on labs were an elevated lipase and BUN. On arrival to the ER, repeat labs obtained showing creatinine greater than 5 and lipase in the 800s. Abdominal imaging did not show a clear pancreatitis or enteritis. Initiated on IV fluids and admitted to medicine for further management. On evaluation this morning she states she is feeling significantly better. IV fluids have helped. Tolerated breakfast without any nausea. Creatinine improving and down in the low 4 range on morning labs. Making urine. No shortness of breath or chest pain. [facility] History I have reviewed the patient's past medical history: Yes Medical History: Reports:: Cardiomyopathy, Congestive Heart Failure, Coronary Artery Disease, Diabetes Mellitus Type 1, Diabetes Mellitus Type 2, Gastroesophageal Reflux Disease(GERD), Hyperlipidemia, Hypertension Denies:: Cancer, Internal Pacemaker, MRSA, Seizures *Have you ever received a pneumonia vaccine?: Yes *Have you received a flu vaccine this season?: Yes Other Medical History: Reports: Thyroid Disease Laterality Cases: Right: Arthroscopy Shoulder Other Surgeries: Yes: Appendectomy, Cardiac Catheterization, Cholecystectomy, Colonoscopy, Coronary Stent. No: Pacemaker Amputation: No Fractures: No - *Social History Last grade of school completed: High school graduate Smoking Status: Never smoker Alcohol Intake: never Substance Use Type: denies use *Occupational Status:: retired Housing: house Household Members: spouse *Travel in the last 8 weeks: None Family Hx:: Unable to obtain Review of Systems - Review of Systems Review of systems:: pertinent systems reviewed and negative unless documented below (14 point review of systems performed, pertinent positives and negatives as per HPI) - *Neurologic Denies headache(s), Denies seizure-like activity Meds Home Medications Medication Instructions Recorded Confirmed Type acetaminophen 500 mg tablet 500 mg PO Q6HP PRN 04/17/20 03/17/22 History aspirin 81 mg tablet,delayed 81 mg PO DAILY 04/17/20 03/17/22 History release fenofibric acid (choline) 135 mg 135 mg PO DAILY cap 04/17/20 03/17/22 History capsule,delayed release ferrous sulfate 325 mg (65 mg 325 mg PO DAILY 04/17/20 03/17/22 History iron) tablet,delayed release insulin aspart U-100 100 unit/mL 26 unit SQ BID ml 04/17/20 03/17/22 History (3 mL) subcutaneous pen levothyroxine 50 mcg tablet 50 mcg PO DAILY tab 04/17/20 03/17/22 History rosuvastatin 40 mg tablet 40 mg PO HS tab 04/17/20 03/17/22 History Clopidogrel Bisulfate [Plavix] 75 mg PO DAILY 07/19/21 03/17/22 History Insulin Glargine,Hum.rec.anlog 64 units SQ DAILY 07/19/21 03/17/22 History [Alona Schilling] Calcium Carbonate [Calcium] 600 mg PO BID 07/20/21 03/17/22 History Promethazine HCl [Phenergan 12.5mg 12.5 mg PO Q6H PRN #15 tab 07/23/21 03/17/22 Rx tablet] Furosemide [Furosemide 40MG tAB*] 80 mg PO BID 03/09/22 03/17/22 History Isosorbide Mononitrate [Isosorbide 30 mg PO DAILY 03/09/22 03/17/22 History Mononitrate ER] Ranolazine [Ranolazine ER] 500 mg PO BID 03/09/22 03/17/22 History lisinopriL [Lisinopril] 10 mg PO DAILY 03/09/22 03/17/22 History levocetirizine 5 mg tablet 5 mg PO DAILY tab 03/11/22 03/17/22 History Bisoprolol Fumarate [Bisoprolol 5 mg PO DAILY 03/17/22 03/17/22 History 5mg Tablet] Pantoprazole Sodium [Protonix 40mg 40 mg PO HS 03/17/22 03/17/22 History tablet] Allergies Allergy/AdvReac Type Severity Reaction Status Date / Time NSAIDS (Non-Steroidal AdvReac
[2022-03-17 16:46] LABS: Chloride 103 mmol/L (98-107); Potassium 5.3 mmoL/L (3.5-5.1); Sodium 140 mmol/L (136-145)
[2022-03-17 16:49] LABS: Anion Gap 17.3 mEq/L (5-15); Carbon Dioxide 25 mmol/L (22.0-30.0)
[2022-03-17 16:53] LABS: Blood Urea Nitrogen 69 mg/dl (7-17)
[2022-03-17 16:55] LABS: Calcium 9.1 mg/dl (8.4-10.2); Glucose 228 mg/dl (74-100)
[2022-03-17 17:07] LABS: Creatinine Clearance Estimated 30 mL/min (50-200); Estimated Glomerular Filt Rate 14 ml/min (>60); GFR (African American) 17 ML/MIN (>60)
--- NOTE | 2022-03-17 19:12 | PC.NURSE ---
Report to GRADY Aguilera.
[2022-03-18 04:00] VITALS: BP 154/65; PULSE 73; RESP 17; TEMP 36.6; O2SAT 99
[2022-03-18 08:00] VITALS: BP 139/63; PULSE 81; RESP 18; TEMP 36.4; O2SAT 100
[2022-03-18 08:33] VITALS: O2SAT 100
[2022-03-18 09:06] LABS: Alanine Aminotransferase 17 U/L (12-78); Albumin Level 3.7 g/dl (3.5-5.0); Albumin/Globulin Ratio 1.4 (1.1-1.8); Alkaline Phosphatase 72 U/L (38-126); Anion Gap 13.2 mEq/L (5-15); Aspartate Amino Transferase 26 U/L (14-36); Bilirubin,Total 0.2 mg/dl (0.2-1.3); Blood Urea Nitrogen 53 mg/dl (7-17); Calcium 8.5 mg/dl (8.4-10.2); Carbon Dioxide 25 mmol/L (22.0-30.0); Chloride 105 mmol/L (98-107); Creatinine Clearance Estimated 40 mL/min (50-200); Estimated Glomerular Filt Rate 19 ml/min (>60); GFR (African American) 23 ML/MIN (>60); Globulin 2.7 g/dL (1.3-3.2); Glucose 365 mg/dl (74-100); Potassium 5.2 mmoL/L (3.5-5.1); Sodium 138 mmol/L (136-145); Total Protein,Serum 6.4 g/dl (6.3-8.2)
[2022-03-18 09:44] LABS: Magnesium 1.8 mg/dl (1.6-2.3)
--- NOTE | 2022-03-18 10:10 | PC.NURSE ---
0400 RN shift reassessment completed by Hiram Guzman [facility] Pt resting comfortably this shift. A & O X4. Voidling yellow urine, total of 1600 ml this shift. IV in L hand patent and infusing NS @ 100 ml/hr. No acute changes. Lungs CTA. Pt has had a BM. Preports no pain. Tolerating diet well. Call light in reach.
[2022-03-18 10:14] LABS: Hematocrit 33.6 % (37.0-47.0); Hemoglobin 11.5 g/dL (12.2-16.2); Mean Corpuscular HGB Conc 34.2 g/dL (31.8-35.4); Mean Corpuscular Hemoglobin 29.7 pg (27.0-31.2); Mean Corpuscular Volume 86.8 fl (81-99); Mean Platelet Volume 7.6 fl (7.4-10.4); Platelet Count 301 K/mm3 (142-424); Red Blood Count 3.87 M/mm3 (4.20-5.40); Red Cell Distribution Width 12.5 % (11.5-17.5); White Blood Count 6.3 K/mm3 (4.8-10.8)
[2022-03-18 10:15] LABS: Basophils % 0.4 % (0.1-2.0); Eosinophils # 0.1 K/mm3 (0.0-0.4); Eosinophils % 2.2 % (0.1-12.0); Lymphocytes # 1.2 K/mm3 (0.7-4.5); Lymphocytes % 18.9 % (10-50); Monocytes # 0.4 K/mm3 (0.1-1.0); Monocytes % 6.1 % (1.7-9.3); Neutrophils # 4.6 K/mm3 (1.8-7.8); Neutrophils % 72.3 % (37.0-80.0)
--- NOTE | 2022-03-18 11:43 | EXP.DC.SUM ---
General Admission date:: 03/17/22 Discharge date: 03/18/22 HPI HPI HPI: Admitted to hospital after heart catheterization which prompted cardiology to double up her already high-dose Lasix. She had labs done after feeling badly and was found to have significant acute kidney injury on top of chronic kidney disease, complicated by acute pancreatitis. Please see admission records, ER notes and H&P for details. Exam Data for Last 24 hours Vital signs and Labs for Last 24 Hours: Temp Pulse Resp BP Pulse Ox 97.5 F L 81 18 139/63 100 03/18/22 08:00 03/18/22 08:00 03/18/22 08:00 03/18/22 08:00 03/18/22 08:33 Laboratory Results - last 24 hr 03/17/22 16:06: Sodium 140, Potassium 5.3 H D, Chloride 103, Carbon Dioxide 25, Anion Gap 17.3 H, BUN 69 H, Creatinine 3.40 H, Estimated Creat Clear 30, Estimated GFR 14 L*, Est GFR ( Amer) 17 L* D, Glucose 228 H, Calcium 9.1 03/18/22 06:20: WBC 6.3, RBC 3.87 L, Hgb 11.5 L, Hct 33.6 L, MCV 86.8, MCH 29.7, MCHC 34.2, RDW 12.5, Plt Count 301, MPV 7.6, Neut % (Auto) 72.3, Lymph % (Auto) 18.9, [place]lette % (Auto) 6.1, Eos % (Auto) 2.2, Baso % (Auto) 0.4, Neut # (Auto) 4.6, Lymph # (Auto) 1.2, [place]lette # (Auto) 0.4, Eos # (Auto) 0.1, Baso # (Auto) 0.0 03/18/22 06:20: Sodium 138, Potassium 5.2 H, Chloride 105, Carbon Dioxide 25, Anion Gap 13.2, BUN 53 H, Creatinine 2.60 H D, Estimated Creat Clear 40, Estimated GFR 19 L*, Est GFR ( Amer) 23 L D, Glucose 365 H D, Calcium 8.5, Magnesium 1.8 D, Total Bilirubin 0.2, AST 26 D, ALT 17 D, Alkaline Phosphatase 72, Total Protein 6.4, Albumin 3.7 D, Globulin 2.7, Albumin/Globulin Ratio 1.4 I & O for Last 24 hours: Intake & Output 03/15/22 03/16/22 03/17/22 03/18/22 11:59 11:59 11:59 11:59 Intake Total 1557 / 1557 Output Total 3750 / 3750 Balance -2193 / -2193 Weight 226 lb Constitutional Constitutional: no acute distress *Routine HEENT Exam Head: Present normocephalic Eye: Present EOMI and PERRL ENT: Present mucous membranes moist *Routine Neck Exam Neck: Present supple; Absent lymphadenopathy *Routine Respiratory Exam Respiratory: Present CTA bilaterally *Routine Cardiovascular Exam Cardiovascular: Present RRR *Routine Abdominal Exam Abdominal: Present soft, normoactive bowel sounds and tenderness Comments: but improved over exam on admission *Routine Rectal Exam Rectal:: deferred *Routine Genitalia Exam Genitalia:: deferred *Routine Extremities Exam Extremities: Absent cyanosis, clubbing or edema *Routine Skin Exam Skin: Present warm; Absent rash *Routine Neurological Exam Neurological: Present alert and oriented X3 Hospital Course Hospital Course Hospital Course: Patient was admitted, IV fluids were given. Diuretics were held. Creatinine improved in a stepwise fashion and this morning is 2.5 which is close to her baseline. Good urine output. Good toleration of p.o. feeds. Plan number to discharge patient today. Short-term follow-up with labs and appointment in the office on Wednesday. We will ask her to hold her diuretics and lisinopril until she is seen in the office. Continue other antiplatelet agents.She will continue to follow a low-fat diet. Results Data Completed and Pending Labs on day of discharge: Labs from last 24 hours 03/18/22 03/18/22 03/17/22 06:20 06:20 16:06 WBC 6.3 RBC 3.87 L Hgb 11.5 L Hct 33.6 L MCV 86.8 MCH 29.7 MCHC 34.2 RDW 12.5 Plt Count 301 MPV 7.6 Neut % (Auto) 72.3 Lymph % (Auto) 18.9 Sublette % (Auto) 6.1 Eos % (Auto) 2.2 Baso % (Auto) 0.4 Neut # (Auto) 4.6 Lymph # (Auto) 1.2 Sublette # (Auto) 0.4 Eos # (Auto) 0.1 Baso # (Auto) 0.0 Sodium 138 140 Potassium 5.2 H 5.3 H D Chloride 105 103 Carbon Dioxide 25 25 Anion Gap 13.2 17.3 H BUN 53 H 69 H Creatinine 2.60 H D 3.40 H Estimated Creat Clear 40 30 Estimated GFR 19 L* 14 L* Est GFR ( Amer) 23 L D 17 L* D Glucose 3
--- NOTE | 2022-03-18 12:00 | PC.NURSE ---
Nurse attempting to make follow up appointment for pt. no answer from office will try again at a later time.
--- NOTE | 2022-03-18 13:00 | PC.NURSE ---
Nurse has attempted several times to make follow up appointment with [facility] internal medicine office. No answer received will prepare pt for discharge with instructions to call office to schedule follow up appointment.
[2022-03-18 13:52] LABS: Direct LDL Cholesterol 108 mg/dL (100-129)
--- NOTE | 2022-03-18 14:00 | PC.NURSE ---
Discharge education provided. Questions encouraged and answered. Pt. v/u. IV removed from right hand, 2x2 with [address]. Pt. tolerated well.
--- NOTE | 2022-03-18 14:01 | PC.NURSE ---
Pt. left unit ambulatory per pt. request, Pt. accompanied by staff x1 and S.O.
--- NOTE | 2022-03-19 14:43 | CARE MANAGER ---
Spoke with patient for post-discharge phone interview, patient states that she is good and that she is aware of appointments.
[2022-04-22 14:06] LABS: POC Glucose,Bedside 325 (70-110)
[2022-04-22 14:06] LABS: POC Glucose,Bedside 253 (70-110)
[2022-04-22 14:06] LABS: POC Glucose,Bedside 355 (70-110)
[2022-04-22 14:06] LABS: POC Glucose,Bedside 207 (70-110)
[2022-04-22 14:06] LABS: POC Glucose,Bedside 202 (70-110)
[2022-04-22 14:06] LABS: POC Glucose,Bedside 220 (70-110)
== END 2022-03-18 14:01 | disposition home or self-care (01) | DRG 439 ==
LOC: ER 21:20 → OB 03-17 02:18
PROVIDERS: Internal Medicine Adolescent Medicine; Admitting Provider Emergency Medicine; Emergency Provider Emergency Medicine; PCP Nurse Practitioner Family; Visit Provider Internal Medicine Adolescent Medicine
DX: K85.90 Acute pancreatitis without necrosis or infection, unspecified (principal); I42.9 Cardiomyopathy, unspecified; N17.9 Acute kidney failure, unspecified; I25.10 Atherosclerotic heart disease of native coronary artery without angina pectoris; E10.9 Type 1 diabetes mellitus without complications; K21.9 Gastro-esophageal reflux disease without esophagitis; E78.5 Hyperlipidemia, unspecified; I50.9 Heart failure, unspecified; I11.0 Hypertensive heart disease with heart failure; E66.9 Obesity, unspecified; Z68.35 Body mass index [BMI] 35.0-35.9, adult; Z95.5 Presence of coronary angioplasty implant and graft
CPT/HCPCS: 36415; 71046; 74176; 80048; 80053; 80061; 81001; 82150; 82962; 83690; 83735; 83880; 84145; 84436; 84443; 84484; 85025; 85651; 86140; 93005; 99285; C9803; J2405; U0003; U0005

== ENCOUNTER → 2022-03-20 09:27 | Outpatient (CLI) | payer BC, SELFPAY ==
[2022-03-20 11:36] LABS: Basophils # 0.1 K/mm3 (0-0.2); Basophils % 0.7 % (0.1-2.0); Eosinophils # 0.2 K/mm3 (0.0-0.4); Eosinophils % 2.5 % (0.1-12.0); Hematocrit 38.3 % (37.0-47.0); Hemoglobin 11.6 g/dL (12.2-16.2); Lymphocytes # 1.6 K/mm3 (0.7-4.5); Lymphocytes % 22.9 % (10-50); Mean Corpuscular HGB Conc 30.3 g/dL (31.8-35.4); Mean Corpuscular Hemoglobin 28.4 pg (27.0-31.2); Mean Corpuscular Volume 93.9 fl (81-99); Monocytes # 0.3 K/mm3 (0.1-1.0); Monocytes % 3.5 % (1.7-9.3); Neutrophils % 70.3 % (37.0-80.0); Platelet Count 405 K/mm3 (142-424); Red Blood Count 4.08 M/mm3 (4.20-5.40); Red Cell Distribution Width 13.1 % (11.5-17.5); White Blood Count 7.1 K/mm3 (4.8-10.8)
[2022-03-20 12:17] LABS: Alanine Aminotransferase 22 U/L (12-78); Albumin Level 3.9 g/dl (3.5-5.0); Albumin/Globulin Ratio 1.4 (1.1-1.8); Alkaline Phosphatase 63 U/L (38-126); Amylase 81 U/L (30-110); Anion Gap 11.7 mEq/L (5-15); Aspartate Amino Transferase 40 U/L (14-36); Bilirubin,Total 0.3 mg/dl (0.2-1.3); Blood Urea Nitrogen 23 mg/dl (7-17); Calcium 10.2 mg/dl (8.4-10.2); Carbon Dioxide 25 mmol/L (22.0-30.0); Chloride 107 mmol/L (98-107); Estimated Glomerular Filt Rate 31 ml/min (>60); GFR (African American) 38 ML/MIN (>60); Globulin 2.8 g/dL (1.3-3.2); Glucose 126 mg/dl (74-100); Lipase 356 U/L (23-300); Potassium 4.7 mmoL/L (3.5-5.1); Sodium 139 mmol/L (136-145); Total Protein,Serum 6.7 g/dl (6.3-8.2)
== END ==
PROVIDERS: PCP Nurse Practitioner Family; Visit Provider Nurse Practitioner Family
DX: R10.13 Epigastric pain (principal); R11.2 Nausea with vomiting, unspecified
CPT/HCPCS: 36415; 80053; 82150; 83690; 85025

== ENCOUNTER → 2022-10-29 07:42 | Outpatient (CLI) | payer BC, SELFPAY ==
--- NOTE | 2022-10-29 07:46 | XR_ITS ---
FINAL REPORT TECHNIQUE: Chest PA & Lateral CLINICAL HISTORY: SOB x wks COMPARISON: 03/16/2022 FINDINGS: 2 views of the chest were performed. The heart size is normal. The mediastinum is within normal limits. There is no acute cardiopulmonary process. There are no pleural effusions. There is no pneumothorax. The bony thorax appears intact. IMPRESSION: No acute cardiopulmonary process. Reviewed, Interpreted and Dictated by Solo Sterling MD Transcribed by Vika Thomas Authenticated and [facility]
== END ==
PROVIDERS: PCP Internal Medicine Adolescent Medicine; Visit Provider Internal Medicine Pulmonary Disease
DX: R06.02 Shortness of breath (principal); R06.09 Other forms of dyspnea
CPT/HCPCS: 71046; 94060; 94618; 94726; 94729

== ENCOUNTER → 2022-12-29 11:33 | Outpatient (CLI) | payer BC, SELFPAY ==
--- NOTE | 2022-12-29 11:33 | NM_ITS ---
FINAL REPORT CLINICAL HISTORY: soa 12:00PM 35.6 MCI TC DTPA 12:25PM 8.54 MCI TC MAA FINDINGS: NUCLEAR MEDICINE VENTILATION AND PERFUSION IMAGING TECHNIQUE: V/Q scan is performed utilizing 35.6 technetium 99 M DTPA aerosol and IV administration of 8.54 technetium 99 M MAA. Images were obtained in AP, PA, lateral, and oblique projections. FINDINGS There is no evidence of segmental or subsegmental mismatch perfusion defects. IMPRESSION: Low probability for pulmonary embolus. Reviewed, Interpreted and Dictated by Ari Moody MD Transcribed by Steffanie Oconnor Authenticated and [facility]
--- NOTE | 2022-12-29 11:33 | CT_ITS ---
FINAL REPORT CLINICAL HISTORY: . cough, soa FINDINGS: HIGH-RESOLUTION CT CHEST WITHOUT CONTRAST 1.[address] axial slices were performed through the chest at 10 mm intervals utilizing high-resolution protocol. Supine inspiration and expiration and prone inspiration high-resolution CT images were obtained.Coronal reformatted images were submitted. This study was performed with techniques to keep radiation doses as low as reasonably achievable (ALARA). Individualized dose reduction techniques using automated exposure control or adjustment of mA and/or kV according to the patient's size were employed. There is no axillary adenopathy. There is no hilar or mediastinal mass or adenopathy. Heart size is normal. There is no pericardial or pleural effusion. There is advanced coronary artery calcified plaque disease. No suspicious infiltrate or nodule is identified on lung window images. There is no evidence of bronchiectasis or emphysema. There is no evidence of interstitial fibrosis. There is no evidence of air trapping. Limited images of the upper abdomen demonstrate a left adrenal nodule measuring 16 mm which likely represents an adenoma. IMPRESSION: No evidence of interstitial fibrosis. Reviewed, Interpreted and Dictated by Ari Moody MD Transcribed by Steffanie Oconnor Authenticated and [facility]
== END ==
PROVIDERS: PCP Internal Medicine Adolescent Medicine; Visit Provider Internal Medicine Pulmonary Disease
DX: J92.9 Pleural plaque without asbestos (principal); R06.02 Shortness of breath; R06.09 Other forms of dyspnea; R94.2 Abnormal results of pulmonary function studies; Z86.16 Personal history of COVID-19; J84.9 Interstitial pulmonary disease, unspecified
CPT/HCPCS: 71250; 78582; A9540; A9567

== ENCOUNTER → 2023-03-15 15:45 | Outpatient (CLI) | payer BC, SELFPAY ==
[2023-03-15 16:16] LABS: Basophils % 0.5 % (0.1-2.0); Eosinophils # 0.1 K/mm3 (0.0-0.4); Eosinophils % 1.9 % (0.1-12.0); Hematocrit 41.8 % (37.0-47.0); Lymphocytes # 1.9 K/mm3 (0.7-4.5); Lymphocytes % 27.2 % (10-50); Mean Corpuscular HGB Conc 33.6 g/dL (31.8-35.4); Mean Corpuscular Hemoglobin 28.8 pg (27.0-31.2); Mean Corpuscular Volume 85.8 fl (81-99); Mean Platelet Volume 7.5 fl (7.4-10.4); Monocytes # 0.5 K/mm3 (0.1-1.0); Monocytes % 6.5 % (1.7-9.3); Neutrophils # 4.5 K/mm3 (1.8-7.8); Neutrophils % 63.9 % (37.0-80.0); Platelet Count 271 K/mm3 (142-424); Red Blood Count 4.87 M/mm3 (4.20-5.40); Red Cell Distribution Width 13.4 % (11.5-17.5)
[2023-03-15 17:44] LABS: Alanine Aminotransferase 25 U/L (12-78); Albumin Level 4.1 g/dl (3.5-5.0); Albumin/Globulin Ratio 1.6 (1.1-1.8); Alkaline Phosphatase 77 U/L (38-126); Anion Gap 13.2 mEq/L (5-15); Aspartate Amino Transferase 32 U/L (14-36); Bilirubin,Total 0.5 mg/dl (0.2-1.3); Blood Urea Nitrogen 29 mg/dl (7-17); Calcium 9.9 mg/dl (8.4-10.2); Carbon Dioxide 32 mmol/L (22.0-30.0); Chloride 102 mmol/L (98-107); Estimated Glomerular Filt Rate 39 ml/min (>60); GFR (African American) 47 ML/MIN (>60); Globulin 2.6 g/dL (1.3-3.2); Glucose 82 mg/dl (74-100); Potassium 4.2 mmoL/L (3.5-5.1); Sodium 143 mmol/L (136-145); Total Protein,Serum 6.7 g/dl (6.3-8.2)
[2023-03-15 17:48] LABS: HCG Qualitative, Serum Negative (Negative)
== END ==
PROVIDERS: PCP Nurse Practitioner Family; Visit Provider Nurse Practitioner Obstetrics & Gynecology
DX: Z01.812 Encounter for preprocedural laboratory examination (principal); D25.9 Leiomyoma of uterus, unspecified
CPT/HCPCS: 36415; 80053; 84703; 85025

== ENCOUNTER 2023-03-22 06:02 | Day surgery (SDC) | payer BC, SELFPAY ==
[2023-03-19 13:52] VITALS: BMI 38.0
[2023-03-22] VITALS (9 sets, daily range): BP systolic 135–163; BP diastolic 60–76; PULSE 64–101; RESP 16–18; TEMP 36.1–36.2; O2SAT 95–98
[2023-03-22 07:35] LABS: POC Glucose,Bedside 219 (70-110)
--- NOTE | 2023-03-22 08:29 | P.PNANES_ITS ---
[facility] Disclaimer: The information contained in this section may have been updated after the patient was seen, as this information can be updated by other users. Medical History Abnormal cardiovascular stress test Abnormal EKG Atypical angina Crescendo angina Decreased diffusion capacity of lung Diabetes mellitus, type 2 History of 2019 novel coronavirus disease (COVID-19) HLD (hyperlipidemia) HTN (hypertension) Hyperlipidemia Pleural thickening Pneumonia due to COVID-19 virus Restrictive cardiomyopathy Shortness of Breath SOB (shortness of breath) on exertion Typical angina Surgical History History of appendectomy History of carpal tunnel surgery History of section History of cholecystectomy History of eye surgery History of shoulder surgery History of tubal ligation Family History Other Diabetes Hypertension Social History Smoking Status: Never smoker alcohol intake: never substance use type: denies use current occupational status: employed Travel in the last 8 weeks: None household members: spouse housing: house current occupational exposures/hazards: No caffeine: Yes [facility] Anesthesia Checklist Patient Identification Patient Identification: Arm Band and Verbal (Name & ) Structural Data Admitted From: Home Planned Operative Procedure/s: Hyst/D & C Consent for Planned Operative Procedure(s) Verified: Yes NPO Status Verified Time NPO: 00:00 Chart Verification Results Verified: CBC and HCG Additional verifications Anesthesia Reactions: No Hx Blood Transfusions: No Blood Transfusion Reaction: No Airway Assessment Mallampati Score:: Class III C-Spine Mobility Assessed: Yes TMJ Mobility Assessed: Yes Dentition: Good Dentition Neurological Assessment Level of Consciousness: Awake Hx Seizures: No Numbness or tingling in extremities: No Anesthesia Plan Anesthesia Risk discussed: Yes Anesthesia Plan: Verified ASA Class: III Anesthesia Type: General
--- NOTE | 2023-03-22 09:38 | EXP.OP.NOTE ---
Date of procedure: 03/22/23 Pre-op Diagnosis:: Postmenopausal bleeding, disordered proliferative growth Post-op Diagnosis:: Postmenopausal bleeding, disordered proliferative growth, endometrial polyps Procedure performed:: Hysteroscopy, dilation and curettage, MyoSure polypectomy. Surgeon:: Mario Harris MD PROP WORKER:: Other (Erin Arellano) Anesthesia: LMA Estimated blood loss (mL): 50 Clinical Note:: She is a 57-year-old lady who complains of postmenopausal bleeding. An endometrial biopsy showed disordered proliferative growth. She had a thickened endometrium at 17 mm. We had tried her on Prometrium and despite this she had continued bleeding. As result of that we offered her D&C Operative findings:: She had an anteverted bulky uterus. The endometrium was lush. Within the endometrial cavity there were at least 3 and possibly 4 sessile polyps. Operative note:: She was taken the operating room where LMA anesthesia was found to be adequate. She was prepped and draped in the normal sterile fashion in the lithotomy position. A weighted speculum was placed in the vagina and the anterior lip of the cervix was grasped with a tenaculum. Sprague dilators used to dilate the cervix to approximately 6 mm. Then using a MyoSure hysteroscope I entered the uterine cavity. The findings were as previously dictated. The MyoSure device was then used to shave off the polyps within the endometrial cavity. I then performed a gentle curettage. We then injected 30 cc of 0.25% ropivacaine at the 3:00 , 5:00, 7:00, and 9:00 positions of the cervix. She tolerated procedure well and was taken recovery room in excellent condition. All sponge and instrument counts were correct. The estimated blood loss was approximately 50 cc. The ins and outs were equal. There was a 1200 cc deficit. Condition: stable Disposition: PACU Complications:: None
[2023-03-22 09:53] LABS: POC Glucose,Bedside 243 (70-110)
--- NOTE | 2023-03-22 14:07 | EXP.ANES.II ---
[facility] Anesthesia Record Part II Anesthesia Record Part II Discharge Time: 10:15 Destination: Surgical Day Care (OP Surgery) PACU nurse assessment reviewed?: Yes Patient Condition:: Good Anesthesia Complications:: None Swallowing reflex intact?: Yes Airway Patency: Patent Cyanosis?: No Blood Pressure: 136/68 SaO2: 95 Respiratory Rate: 16 Pulse Rate: 97 Temperature: 97.1 F Mental Status: Alert & Oriented Pain level:: 0 Nausea and/or vomitting:: None Intake, IV Amount: 0 Hydration: Adequate
== END 2023-03-22 10:49 | disposition home or self-care (01) ==
PROVIDERS: PCP Nurse Practitioner Family; Visit Provider Nurse Practitioner Obstetrics & Gynecology
PROC: (CPT 58558; principal; 2023-03-22 07:30)
DX: N95.0 Postmenopausal bleeding (principal); N85.4 Malposition of uterus; N85.00 Endometrial hyperplasia, unspecified; E11.9 Type 2 diabetes mellitus without complications
CPT/HCPCS: 58558; 82962; 96374; J2405

== ENCOUNTER 2023-03-26 11:23 | Emergency (ER) | payer BC, SELFPAY ==
[2023-03-26] VITALS (7 sets, daily range): BP systolic 120–146; BP diastolic 55–76; PULSE 58–73; RESP 16–18; TEMP 36.8–36.9; O2SAT 96–99; BMI 38.0
--- NOTE | 2023-03-26 11:52 | HMH.EDGENADL ---
Discharge Plan Disposition Patient Disposition: Home, Self-Care Condition: Good Prescriptions Prescriptions: No Action levothyroxine 50 mcg tablet 50 mcg PO DAILY rosuvastatin 40 mg tablet 40 mg PO HS Hold Instructions: Resume on 03/25/22. insulin aspart U-100 100 unit/mL (3 mL) insulin pen 15 unit SQ BID Patient Comments: Adjusts with each meal. Based on carb intake aspirin [Adult Low Dose Aspirin] 81 mg tablet,delayed release (DR/EC) 81 mg PO DAILY ferrous sulfate 325 MG tablet,delayed release (DR/EC) 325 mg PO DAILY acetaminophen [Tylenol Extra Strength] 500 mg tablet 500 mg PO Q6HP PRN (Reason: Fever > 100.4) albuterol sulfate 90 mcg/actuation HFA aerosol inhaler 2 inh inhalation QID PRN (Reason: shortness of breath or wheezing) 90 Days Qty: 8.5 2RF furosemide 40 mg tablet 40 mg PO DAILY ranolazine 500 mg tablet extended release 12 hr 500 mg PO BID Qty: 180 3RF clopidogrel 75 MG tablet 75 mg PO DAILY insulin glargine U-300 conc 300 UNIT/ML insulin pen 64 units SQ DAILY calcium carbonate 600 MG tablet 600 mg PO BID bisoprolol fumarate 5 MG tablet 5 mg PO DAILY pantoprazole 40 MG tablet,delayed release (DR/EC) 40 mg PO HS isosorbide mononitrate 30 mg tablet extended release 24 hr See Rx Instructions .ROUTE .COMPLEX Rx Instructions: Take 1 tablet by mouth once daily progesterone micronized [Prometrium] 200 mg capsule 200 mg PO HS Rx Instructions: off 7 days; repeat cycle oxycodone-acetaminophen 5-325 mg tablet 1 tab PO Q6H PRN (Reason: pain) Qty: 6 0RF Referrals Follow up/Referrals: Meaghan Robles APRN [Primary Care Provider] - See instructions Clinical Impressions Clinical Impression: Post-operative pain Stand Alone Forms Stand Alone Forms: Work/School Release Instructions Patient Instructions: DI for Acute Abdominal Pain Discharge ED Provider: Bautista Greene Adult [facility] General Chief complaint: Abdominal Pain Stated complaint: PAIN IN ABD Time Seen by Provider: 03/26/23 11:52 Mode of Arrival: Ambulatory Source of Information: Patient Limitations: No Limitations Description of Symptoms (Recalled from ER Triage Doc. by RN): c/o lower abdomen pain that has been t/o the week but increased in pain at work today. Pt states that she had a hysteroscopy D&C on Wednesday which she took off Wednesday- doing relaxing activities, returned to work today where she stands on her feet for 12 hours. States while at work today she had increased abdomen pain more than her normal this week after procedure. History of Present Illness HPI narrative: Patient presents for evaluation of suprapubic abdominal pain, described as dull and nonradiating with no associated fevers or chills or nausea or vomiting or urinary symptoms, patient does note a recent history of hysteroscopy that was uncomplicated, patient has had stable scant amount of vaginal bleeding, no vaginal discharge or blood in stool. Previous therapies today include Tylenol. Symptoms have gradually worsened over the past 24 hours. Related Data Home Medications Medication Instructions Recorded Confirmed acetaminophen 500 mg tablet 500 mg PO Q6HP PRN Fever > 100.4 04/17/20 03/22/23 (Tylenol Extra Strength) aspirin 81 mg tablet,delayed 81 mg PO DAILY heart health 04/17/20 03/22/23 release (Adult Low Dose Aspirin) ferrous sulfate 325 mg (65 mg 325 mg PO DAILY iron supplement 04/17/20 03/22/23 iron) tablet,delayed release insulin aspart U-100 100 unit/mL 15 unit SQ BID high blood sugar 04/17/20 03/22/23 (3 mL) subcutaneous pen levothyroxine 50 mcg tablet 50 mcg PO DAILY hypothyroidism 04/17/20 03/22/23 rosuvastatin 40 mg tablet 40 mg PO HS Cholesterol 04/17/20 03/22/23 clopidogrel 75 mg tablet 75 mg PO DAILY platelet inhibitor 07/19/21 03/22/23 insulin glargine U-300 conc 300 64 units SQ DAILY hyperglycemia 07/19/21
[2023-03-26 12:59] LABS: Basophils % 0.5 % (0.1-2.0); Eosinophils # 0.2 K/mm3 (0.0-0.4); Eosinophils % 2.5 % (0.1-12.0); Hematocrit 41.7 % (37.0-47.0); Hemoglobin 13.7 g/dL (12.2-16.2); Lymphocytes # 1.8 K/mm3 (0.7-4.5); Lymphocytes % 20.9 % (10-50); Mean Corpuscular Hemoglobin 28.5 pg (27.0-31.2); Mean Corpuscular Volume 86.6 fl (81-99); Mean Platelet Volume 7.8 fl (7.4-10.4); Monocytes # 0.5 K/mm3 (0.1-1.0); Monocytes % 5.6 % (1.7-9.3); Neutrophils % 70.5 % (37.0-80.0); Platelet Count 289 K/mm3 (142-424); Red Blood Count 4.81 M/mm3 (4.20-5.40); Red Cell Distribution Width 13.9 % (11.5-17.5); White Blood Count 8.6 K/mm3 (4.8-10.8)
[2023-03-26 13:05] LABS: Alanine Aminotransferase 23 U/L (12-78); Albumin Level 4.2 g/dl (3.5-5.0); Albumin/Globulin Ratio 1.3 (1.1-1.8); Alkaline Phosphatase 74 U/L (38-126); Anion Gap 14.2 mEq/L (5-15); Aspartate Amino Transferase 35 U/L (14-36); Bilirubin,Total 0.6 mg/dl (0.2-1.3); Blood Urea Nitrogen 26 mg/dl (7-17); Calcium 9.8 mg/dl (8.4-10.2); Carbon Dioxide 34 mmol/L (22.0-30.0); Chloride 98 mmol/L (98-107); Creatinine Clearance Estimated 78 mL/min (50-200); Estimated Glomerular Filt Rate 39 ml/min (>60); GFR (African American) 47 ML/MIN (>60); Globulin 3.2 g/dL (1.3-3.2); Glucose 114 mg/dl (74-100); Potassium 4.2 mmoL/L (3.5-5.1); Sodium 142 mmol/L (136-145); Total Protein,Serum 7.4 g/dl (6.3-8.2)
--- NOTE | 2023-03-26 13:14 | CT_ITS ---
FINAL REPORT TECHNIQUE: Axial images through the abdomen and pelvis were performed without contrast. This study was performed with techniques to keep radiation doses as low as reasonably achievable, (ALARA). Individualized dose reduction techniques using automated exposure control or adjustment of mA and/or kV according to the patient's size were employed. CLINICAL HISTORY: post op suprapubic pain (hysteroscopy) COMPARISON: 03/16/2022 FINDINGS: Abdomen: The lung bases are clear. There is mild fatty infiltration of the liver. The gallbladder is absent. The spleen and pancreas are unremarkable. There is a 1.5 cm well-circumscribed low-attenuation focus in the left adrenal gland measuring 13 Hounsfield units, indeterminate and stable from prior exam. The right adrenal gland is unremarkable. The kidneys are unremarkable. Pelvis: The urinary bladder is unremarkable. The appendix is not visualized. The uterus is present and lies eccentric to the left. There is no pelvic mass or inflammation. IMPRESSION: Indeterminate 1.5 cm left adrenal nodule. Reviewed, Interpreted and Dictated by Solo Sterling MD Transcribed by Kathi Anaya Authenticated and . [facility]
--- NOTE | 2023-03-26 13:16 | PC.NURSE ---
verónica browning called to notify MD the GFR was 39 and requesting IVF. would like to change CT order to non-contrast. New order placed.
--- NOTE | 2023-03-26 13:16 | PC.NURSE ---
Pt gone to RAD via wheelchair
--- NOTE | 2023-03-26 13:21 | PC.NURSE ---
Pt returned from RAD
--- NOTE | 2023-03-26 14:53 | PC.NURSE ---
Rounded on pt. No needs voiced. Pt updated on expected wait times.
== END 2023-03-26 15:29 | disposition home or self-care (01) ==
PROVIDERS: Emergency Provider Emergency Medicine; PCP Nurse Practitioner Family
DX: R10.30 Lower abdominal pain, unspecified (principal); G89.18 Other acute postprocedural pain; E11.9 Type 2 diabetes mellitus without complications; E78.5 Hyperlipidemia, unspecified; I10 Essential (primary) hypertension; I42.5 Other restrictive cardiomyopathy; I20.8 Other forms of angina pectoris; Y83.8 Other surgical procedures as the cause of abnormal reaction of the patient, or of later complication, without mention of misadventure at the time of the procedure
CPT/HCPCS: 74176; 80053; 85025; 99284

== ENCOUNTER → 2023-04-16 13:14 | Outpatient (CLI) | payer BC, SELFPAY ==
--- NOTE | 2023-04-16 13:14 | MM_ITS ---
PROCEDURE INFORMATION: Exam: MG Bilateral Screening 3D Mammography Exam date and time: 04/16/2023 1:10 PM Age: 57 years old Clinical indication: Screening mammogram TECHNIQUE: Imaging protocol: Bilateral Screening tomosynthesis and 2D mammography including computer-aided detection (CAD) when performed. COMPARISON: 1. MG MM DIG SCREENING MAMM BI W/CAD 11/12/2020 3:55 PM 2. MG DIG MAMM-SCREEN KAROL 01/11/2019 4:49 PM FINDINGS: MAMMOGRAPHY: Breast composition: There are scattered areas of fibroglandular density. Mass: None. Architectural distortion: None. Calcifications: No suspicious calcifications. Asymmetric density: None. Skin thickening: None. Axillary adenopathy: None. IMPRESSION: No mammographic evidence of malignancy. Annual screening is recommended unless otherwise clinically indicated. ASSESSMENT: BI-RADS Category 1: Negative
== END ==
PROVIDERS: PCP Nurse Practitioner Family; Visit Provider Obstetrics & Gynecology
DX: Z12.39 Encounter for other screening for malignant neoplasm of breast (principal)
CPT/HCPCS: 77063; 77067

== ENCOUNTER 2023-06-29 11:21 | Day surgery (SDC) | payer BC, SELFPAY ==
[2023-06-28 13:31] VITALS: BMI 37.5
[2023-06-29 11:36] VITALS: BP 154/52; PULSE 81; RESP 18; TEMP 36.3; O2SAT 94
[2023-06-29 11:44] LABS: POC Glucose,Bedside 98 (70-110)
--- NOTE | 2023-06-29 11:51 | P.PCN_ITS ---
Procedure: Date: 06/29/23 Patient Date of :: 1965 Procedure Performed:: Colonoscopy with polypectomy Indications:: History of colon polyps Performing Provider:: Juan M Evans MD Referring Provider:: . Sedation:: Monitored anesthesia care Procedure:: After informed consent was obtained the patient was taken to the endoscopy suite. Sedation ensued after the patient was transferred to the left lateral d ecubitus position. Pulse, blood pressure, and oxygen saturation were monitored throughout the procedure. Digital rectal exam revealed no significant abnormality. The colonoscope was placed in position. The entire colon was evaluated. The colonoscope was carefully removed and the patient was transferred to recovery in stable condition. Please see findings and specimens below for detail. Findings:: Bowel preparation moderate to poor Hemorrhoidal tag/cushions Fairly profound spasticity Polyp at 15 cm Specimens:: Polyp at 15 cm (cold snare) Recommendations:: Timing of repeat colonoscopy is pending pathology will likely be around 1-2 years with extended bowel preparation secondary to moderate to poor bowel preparation and fairly profound spasticity. Complications:: No immediate Estimated blood obtained (mL): 1 Colonoscopy Component Colonoscopy Component Was a colonoscopy performed during today's procedure?: Yes Recommended follow up colonoscopy of at least 10 years?: No If no, follow up colonoscopy recommended in ___ years?: (See above) Reason for not recommending >/= 10 yr follow-up interval?: (See above)
--- NOTE | 2023-06-29 11:53 | P.PNANES_ITS ---
[facility] Disclaimer: The information contained in this section may have been updated after the patient was seen, as this information can be updated by other users. Medical History Abnormal cardiovascular stress test Abnormal EKG Atypical angina Crescendo angina Decreased diffusion capacity of lung Diabetes mellitus, type 2 History of 2019 novel coronavirus disease (COVID-19) HLD (hyperlipidemia) HTN (hypertension) Hyperlipidemia Pleural thickening Pneumonia due to COVID-19 virus Restrictive cardiomyopathy Shortness of Breath SOB (shortness of breath) on exertion Typical angina Surgical History History of appendectomy History of carpal tunnel surgery History of section History of cholecystectomy History of eye surgery History of hysteroscopy D&C, Myosure, polpyectomy History of shoulder surgery History of tubal ligation Family History Other Diabetes Hypertension Social History Smoking Status: Never smoker alcohol intake: never substance use type: denies use current occupational status: employed Travel in the last 8 weeks: None household members: spouse housing: house current occupational exposures/hazards: No caffeine: Yes [facility] Anesthesia Checklist Patient Identification Patient Identification: Arm Band, Family and Verbal (Name & ) Structural Data Admitted From: Home Planned Operative Procedure/s: Colonoscopy Consent for Planned Operative Procedure(s) Verified: Yes Verified Documents: Surgical Consent, History and Physical and Cardiac Clearance NPO Status Verified Time NPO: 08:30 Chart Verification Results Verified: CBC, BMP, ECG and Chest Xray Additional verifications Fingerstick Blood Glucose: 98 Patient : No Anesthesia Reactions: No Hx Blood Transfusions: No Blood Transfusion Reaction: No Previous Colonoscopy: Yes Cardiovascular Assessment Heart Sounds: S1 & S2 Pulse Rhythm: Irregular Peripheral Edema: No Airway Assessment Mallampati Score:: Class I C-Spine Mobility Assessed: Yes (FROM) TMJ Mobility Assessed: Yes Dentition: Good Dentition (Nothing loose per pt.) Neurological Assessment Level of Consciousness: Awake, Alert, Appropriate and Follows Commands Hx Seizures: No Numbness or tingling in extremities: No Anesthesia Plan Anesthesia Risk discussed: Yes Anesthesia Plan: Verified ASA Class: III Anesthesia Type: MAC
[2023-06-29 12:26] VITALS: BP 122/62; PULSE 61; RESP 16; TEMP 36.6; O2SAT 94
--- NOTE | 2023-06-29 12:30 | P.PNANES_ITS ---
[facility] Anesthesia Record Part I Anesthesia Record I Intake, IV Amount: 200 Hydration: Adequate Estimated blood loss (mL): 1 Urine output (mL): 0 Blood Products used (#): none Blood Pressure: 122/62 SaO2: 93 Pulse Rate: 61 Airway Patency: Patent Respiratory Rate: 16 Temperature: 97.9 F Patient is:: Awake (Talking) and Stable Stable to PACU at:: 12:31
[2023-06-29 12:31] VITALS: BP 122/62; PULSE 61; RESP 16; TEMP 36.6; O2SAT 93
[2023-06-29 12:36] VITALS: BP 115/56; PULSE 62; RESP 16; O2SAT 95
[2023-06-29 12:46] VITALS: BP 130/74; PULSE 60; RESP 16; O2SAT 95
== END 2023-06-29 12:55 | disposition home or self-care (01) ==
PROVIDERS: PCP Nurse Practitioner Family; Visit Provider Surgery
PROC: 0DJD8ZZ Inspection of Lower Intestinal Tract, Via Natural or Artificial Opening Endoscopic (ICD-10-PCS; CPT 45385; principal; 2023-06-29 12:30)
DX: Z12.11 Encounter for screening for malignant neoplasm of colon (principal); Z86.010 Personal history of colon polyps; K63.5 Polyp of colon; E11.9 Type 2 diabetes mellitus without complications
CPT/HCPCS: 45385; 82962

== ENCOUNTER 2023-09-13 12:47 | Outpatient (CLI) | payer BC, SELFPAY ==
--- NOTE | 2023-09-13 12:49 | CA_ITS ---
APPROVED REPORT EXAM: Comprehensive 2D, Doppler, and color-flow Echocardiogram Paper Hanger: Ruthann Marks RT(R) Ht: 5 ft 7 in Wt: 245lbs BSA: 2.20 BP: 154/55 mmHg Indications: CAD, Abn EKG, CM, SOB, HTN, HLD, obesity 2D Dimensions LVEF (Reese's) 50.90 % F: 54 - 74 LV Volume 112.50 mL F: 46 - 106 LV Volume Index 50.9 mL/m2 F: 29 - 61 EF AP4 58.60 % EF AP2 40.6 % EF BP 50.9 % GL Strain -11.1 % M-Mode Dimensions RVDd 2.39 cm (0.9-2.6) LA Diam 3.86 cm (1.9-4.0) LVDd 5.33 cm (3.5-5.7) LVDs 4.01 cm (3.5-5.7) IVSd 1.09 cm (0.6-1.1) PWd 1.07 cm (0.6-1.1) EF (Teich) 48.70% FS 24.80% EDV (Teich) 137.10 mL ESV (Teich) 70.40 mL LV Diastology E Decel Time 163 (160-240 msec) E/A Ratio 1.1 Mitral Valve MV E Max Earle. 97.0 (40-130 cm/s) MV A Velocity 91.0 (40-130 cm/s) E/A Ratio 1.07 MV PHT 48.0 ms Left Ventricle The left ventricle is normal size. The left ventricular systolic function is normal. The left ventricular ejection fraction is within the normal range. There is normal left ventricular wall thickness. There is normal LV segmental wall motion. The left ventricular diastolic function is normal. LVEF is 55%. Right Ventricle The right ventricle is mildly dilated. Right ventricle is mildly hypokinetic. Atria The left atrium size is normal. The right atrium size is normal. There is no Doppler evidence of interatrial shunt. Aortic Valve The aortic valve opens well. There is no aortic valvular stenosis. Trace aortic regurgitation. Mitral Valve Moderate mitral annular calcification. The mitral valve leaflets are mildly thickened. No evidence of mitral valve stenosis. Mild mitral regurgitation. Tricuspid Valve The tricuspid valve leaflets are thin and pliable. Trace tricuspid regurgitation. There is insufficient TR jet to estimate RVSP. Pulmonic Valve The pulmonary valve is normal in structure. Trace pulmonic regurgitation. Great Vessels The aortic root is normal in size. The ascending aorta is normal in size. IVC is normal in size and collapses >50% with inspiration. Pericardium There is no pericardial effusion. Other Information Study Quality: Technically Difficult Conclusion Technically difficult study due to poor acoustic windows. Normal LV systolic function. Mild RV dilation with mild reduction in RV function. Moderate mitral annular calcification (MAC). Mild MR. Electronically signed by : Lara Santillan MD 09/15/2023 11:53:03
== END 2023-09-13 23:59 ==
LOC: RT 12:49
PROVIDERS: PCP Nurse Practitioner Family; Visit Provider Nurse Practitioner
DX: I42.5 Other restrictive cardiomyopathy (principal); I25.10 Atherosclerotic heart disease of native coronary artery without angina pectoris; I11.0 Hypertensive heart disease with heart failure; I50.30 Unspecified diastolic (congestive) heart failure; R94.31 Abnormal electrocardiogram [ECG] [EKG]
CPT/HCPCS: 93306

== ENCOUNTER 2024-01-06 07:46 | Outpatient (CLI) | payer BC, SELFPAY ==
[2024-01-06] MEDS: ALBUTEROL 0.083% 2.5 MG/3 ML NEB IH (08:33)
--- NOTE | 2024-01-06 08:33 | PC.NURSE ---
PFT and 6 Minute Walk Test completed. Excellent effort demonstrated. Albuterol 0.083% given via HHN, per written protocol, Pt tolerated tx well.
== END 2024-01-06 23:59 | disposition home or self-care (01) ==
LOC: RT 07:48
PROVIDERS: PCP Nurse Practitioner Family; Visit Provider Internal Medicine Pulmonary Disease
DX: R06.09 Other forms of dyspnea (principal)
CPT/HCPCS: 94060; 94618; 94726; 94729; J7613

== ENCOUNTER 2024-08-12 08:54 | Outpatient (CLI) | payer BC, SELFPAY ==
[2024-08-12 09:19] LABS: Basophils % 0.5 % (0.1-2.0); Eosinophils # 0.2 K/mm3 (0.0-0.4); Eosinophils % 2.8 % (0.1-12.0); Hemoglobin 12.5 g/dL (12.2-16.2); Lymphocytes # 1.8 K/mm3 (0.7-4.5); Mean Corpuscular HGB Conc 32.1 g/dL (31.8-35.4); Mean Corpuscular Hemoglobin 27.9 pg (27.0-31.2); Mean Corpuscular Volume 87.1 fl (81-99); Mean Platelet Volume 9.4 fl (7.4-10.4); Monocytes # 0.5 K/mm3 (0.1-1.0); Monocytes % 6.4 % (1.7-9.3); Neutrophils # 5.4 K/mm3 (1.8-7.8); Neutrophils % 67.8 % (37.0-80.0); Platelet Count 282 K/mm3 (142-424); Red Blood Count 4.48 M/mm3 (4.20-5.40); Red Cell Distribution Width 13.5 % (11.5-17.5)
[2024-08-12 09:53] LABS: Albumin Level 3.7 g/dl (3.5-5.0); Chloride 103 mmol/L (98-107)
[2024-08-12 09:54] LABS: Potassium 4.1 mmoL/L (3.5-5.1); Sodium 136 mmol/L (136-145)
[2024-08-12 09:56] LABS: Alanine Aminotransferase 27 U/L (12-78); Aspartate Amino Transferase 38 U/L (14-36); Blood Urea Nitrogen 21 mg/dl (7-17); Estimated Glomerular Filt Rate 46 ml/min (>60); GFR (African American) 56 ML/MIN (>60)
[2024-08-12 09:57] LABS: Albumin/Globulin Ratio 1.5 (1.1-1.8); Alkaline Phosphatase 80 U/L (38-126); Anion Gap 8.1 mEq/L (5-15); Bilirubin,Total 0.4 mg/dl (0.2-1.3); Calcium 9.2 mg/dl (8.4-10.2); Carbon Dioxide 29 mmol/L (22.0-30.0); Chol/HDL Ratio 5.1 (1-3.5); Cholesterol 168 mg/dl (140-200); Globulin 2.5 g/dL (1.3-3.2); Glucose 171 mg/dl (74-100); HDL Cholesterol 33 mg/dl (40-60); Total Protein,Serum 6.2 g/dl (6.3-8.2); Triglycerides 262 mg/dl (30-150); VLDL Cholesterol 52 mg/dL (0-40)
[2024-08-12 10:06] LABS: Hemoglobin A1C 9.4 % (4.0-6.0)
[2024-08-12 10:08] LABS: Direct LDL Cholesterol 95.34 mg/dL (100-129)
[2024-08-12 10:26] LABS: Thyroid Stimulating Hormone 0.59 uIU/mL (0.465-4.68)
== END 2024-08-12 23:59 | disposition home or self-care (01) ==
LOC: LAB 08:55
PROVIDERS: PCP Nurse Practitioner Family; Visit Provider Nurse Practitioner Family
DX: E03.9 Hypothyroidism, unspecified (principal); N18.32 Chronic kidney disease, stage 3b; E10.9 Type 1 diabetes mellitus without complications
CPT/HCPCS: 36415; 80053; 80061; 83036; 84443; 85025

== ENCOUNTER 2024-08-16 15:16 | Outpatient (CLI) | payer BC, SELFPAY ==
--- NOTE | 2024-08-16 15:18 | MM_ITS ---
PROCEDURE INFORMATION: Exam: MG Bilateral Screening 3D Mammography Exam date and time: 08/16/2024 3:08 PM Age: 59 years old Clinical indication: Screening examination TECHNIQUE: Imaging protocol: Bilateral Screening tomosynthesis and 2D mammography including computer-aided detection (CAD) when performed. COMPARISON: 1. MG MM DIG SCREENING MAMM BI W/CAD 04/16/2023 1:10 PM 2. MG MM DIG SCREENING MAMM BI W/CAD 11/12/2020 3:55 PM FINDINGS: MAMMOGRAPHY: Breast composition: There are scattered areas of fibroglandular density. Mass: No suspicious masses. Architectural distortion: None. Calcifications: No suspicious calcifications. Asymmetric density: None. Skin thickening: None. Axillary adenopathy: None. IMPRESSION: No mammographic evidence of malignancy. Annual screening is recommended unless otherwise clinically indicated. ASSESSMENT: BI-RADS Category 1: Negative.
== END 2024-08-16 23:59 | disposition home or self-care (01) ==
LOC: RAD 15:16
PROVIDERS: PCP Nurse Practitioner Family; Visit Provider Nurse Practitioner Family
DX: Z12.31 Encounter for screening mammogram for malignant neoplasm of breast (principal)
CPT/HCPCS: 77063; 77067

== ENCOUNTER 2025-06-19 12:46 | Outpatient (CLI) | payer BC, SELFPAY ==
--- OUTSIDE RECORDS SUMMARY | 2024-08-29 10:15 | XMS_ITS ---
Author Organization [facility] Address [address] [place] [address] Care Team Providers Care Bark Press Operator Name Role Phone Judson Lizarraga Primary Care Provider Bambi Reed Unavailable [phone] REASON FOR VISIT Disability Paperwork Encounters Encounter Location Date Provider Diagnosis [facility] [address] [place] [address] 08/29/2024 Bambi Reed Plan Of Treatment No Information Progress Notes * Jeannette FRANK RDOB:[birth year] (60 yo F)Acc No.[id number]:08/29/2024 Patient: Jeannette GARCIA Provider: Todd Reed APRN :1965 A ge:59 Y S ex:Female Date:08/29/2024 Address:[address], [place], [id number] Pcp:Judson Lizarraga Subjective: * Chief Complaints: Objective: Assessment: Plan: * * Electronic signature of Morenita Reed APRN on 06/19/2025 at 12:56 PM EST Sign off status: Pending * Provider: Todd Reed APRN Date: 0 08/29/2024 Generated for Dax fairbanks/Laury/eTransmitting on: 1 08/19/2024 12:56 PM EST
--- OUTSIDE RECORDS SUMMARY | 2024-09-04 10:00 | XMS_ITS ---
Author Organization [facility] Address [address] [place] [address] Care Team Providers Care It Systems Engineer Name Role Phone Judson Lizarraga Primary Care Provider Bambi Reed Unavailable [phone] REASON FOR VISIT FMLA Encounters Encounter Location Date Provider Diagnosis [facility] [address] [place] [address] 09/04/2024 Bambi Reed Plan Of Treatment No Information Progress Notes * Jeannette FRANK RDOB:[birth year] (60 yo F)Acc No.[id number]:09/04/2024 Patient: Jeannette GARCIA Provider: Todd Reed APRN :1965 A ge:59 Y S ex:Female Date:09/04/2024 Address:[address], [place], [place] Pcp:Judson Lizarraga Subjective: * Chief Complaints: Objective: Assessment: Plan: * * Electronic signature of Morenita Reed APRN on 06/19/2025 at 12:57 PM EST Sign off status: Pending * Provider: Todd Reed APRN Date: 0 09/04/2024 Generated for Printi ng/Faxing/eTransmitting on: 1 08/19/2024 12:57 PM EST
--- OUTSIDE RECORDS SUMMARY | 2024-09-12 09:00 | XMS_ITS ---
Author Organization [facility] Address [address] [place] [address] Care Team Providers Care Steam And Gas Turbines Assembler Name Role Phone Judson Lizarraga Primary Care Provider [phone] Meaghan Robles Unavailable [phone] REASON FOR VISIT jean-pierre forms Encounters Encounter Location Date Provider Diagnosis [facility] [address] [place] [address] 09/12/2024 Meaghan Robles Plan Of Treatment No Information Progress Notes * Jeannette FRANK RDOB:[birth year] (60 yo F)Acc No.[id number]:09/12/2024 Patient: Jeannette GARCIA Provider: MANFRED Espinoza :1965 A ge:59 Y S ex:Female Date:09/12/2024 Address:[address], [place], [id number] Pcp:uJdson Lizarraga Subjective: * Chief Complaints: Objective: Assessment: Plan: * * Electronic signature of Radha Robles APRN on 06/19/2025 at 12:58 PM EST Sign off status: Pending * Provider: MANFRED Espinoza Date: 0 09/12/2024 Generated for Printi ng/Faxing/eTransmitting on: 1 08/19/2024 12:58 PM EST
--- OUTSIDE RECORDS SUMMARY | 2024-10-28 16:30 | XMS_ITS ---
Author Organization [facility] Address [address] [place] [address] Care Team Providers Care Safety Security Officer Name Role Phone Judson Lizarraga Primary Care Provider Migration, Provider Unavailable Unavailable REASON FOR VISIT [facility] To [facility] Conversion Encounter Medications Medication SIG (Take, Route, Frequency, Duration) Notes Start Date End Date Status NovoLOG FlexPen 100 UNIT/ML 40 untis subcutaneously 3 times a day with meals; Duration: 90 days Active Furosemide 40 MG 1 tab(s) orally once a day; Duration: 30 days Active Tresiba FlexTouch 100 UNIT/ML INJECT 76 UNITS SUBCUTANEOUSLY ONCE A DAY; Duration: 40 days Active Meclizine HCl 25 MG 1 tab(s) orally ever y 8 hours as needed for vertigo; Duration: 7 days 09/06/2024 Active Ondansetron HCl 4 MG 1 tab(s) orally every 8 hours as needed for nausea/vomiting; Duration: 3 days 09/06/2024 Active Synthroid 50 MCG 1 tablet orally once a day; Duration: 90 days Active Losartan Potassium 25 MG 1 tab(s) orally once a day; Duration: 90 days Active Bisoprolol Fumarate 5 MG 1 tab(s) orally once a day; Duration: 90 days Active Plavix 75 MG 1 tab(s) orally once a day; Duration: 90 days Active Crestor 40 MG 1 tab(s) orally once a day (at bedtime); Duration: 90 days Active ACCU-CHECK POPPY DIRECTED TID *Please review for potential replacement for e-prescription and drug interaction check* Active BD ULTRA-FINE PEN NEEDLE 31G 8MM - 5 X PER DAY; Duration: 90 DAYS *Please review for potential replacement for e-prescription and drug interaction check* 10/05/2014 Active Pantoprazole Sodium 40 MG 1 tab(s) orally 2 times a day; Duration: 90 days Active Calcium-Vitamin D 600MG 1 TAB(S) ORALLY TID *Please review and pick correct strength-formulati on from Medispan options. If intended option is not shown, discontinue and re-order from Quick Search* Active Tylenol Extra Strength 500 MG 2 tab(s) orally Q6H prn Active Doxycycline Hyclate 100 MG 1 cap(s) orally 2 times a day; Duration: 10 days 09/25/2024 Active Aspirin 81 MG 1 tab(s) orally once a day Active Vitamin C 500 MG 1 cap(s) orally once a day Active Encounters Encounter Location Date Provider Diagnosis [facility] [address] [facility] [address] [place] [address] 10/28/2024 Provider Migration Cellulitis of finger of right hand L03.011 Assessments Encounter Date Diagnosis (ICD Code) Assessment Notes Treatment Notes Treatment Clinical Notes Section Notes 10/28/2024 Cellulitis of finger of right hand (ICD-10 - L03.011) Plan Of Treatment Medication Medication Name Sig Start Date Stop Date Notes Doxycycline Hyclate 100 MG 1 cap(s) oral ly 2 times a day; Duration: 10 days 09/25/2024 Progress Notes * Jeannette FRANK RDOB:[birth year] (60 yo F)Acc No.[id number]:10/28/2024 Patient: Jeannette GARCIA Gabby Provider: Honey Hartmann :1965 A ge:59 Y S ex:Female Date:10/28/2024 Address:[address] , [place], [place] Pcp:Judson Lizarraga Subjective: * Chief Complaints: * 1 . [facility] Conversion Encounter. * Medical History: * Medications: T aking Aspirin 81 MG Tablet Delayed Release 1 tab(s) orally once a day , Taking Vitamin C 500 MG Capsule 1 cap(s) orally once a day , Taking Calcium-Vitamin D 600MG TABLET 1 TAB(S) ORALLY TID , Notes to Pharmacist: *Please review and pick correct strength-formulation from Medispan options. If intended option is not shown, discontinue and re-order from Quick Search*, Taking Tylenol Extra Strength 500 MG Tablet 2 tab(s) orally Q6H prn , Taking ACCU-CHECK POPPY DIRECTED TID , Notes to Pharmacist: *Please review for potential replacement for e-prescription and drug interaction check*, Taking BD ULTRA-FINE PEN NEEDLE 31G 8MM - 5 X PER DAY , Notes to Pharmacist: *Please review for potential replacement for e-prescription and drug interaction check*, Taking Pantoprazole Sodium 40 MG Tablet Delayed Release 1 tab(s) orally 2 times a day , Taking Synthroid 50 MCG Tablet 1 tablet orally once a day , Taking Bisoprolol Fumarate 5 MG Tablet 1 tab(s) orally once a day , Taking Plavix 75 MG Tablet 1 tab(s) orally once a day , Taking Crestor 40 MG Tablet 1 tab(s) orally once a day (at bedtime) , Taking Losartan Potassium 25 MG Tablet 1 tab(s) orally once a day , Taking Tresiba FlexTouch 100 UNIT/ML Solution Pen-injector INJECT 76 UNITS SUBCUTANEOUSLY ONCE A DAY , Taking Meclizine HCl 25 MG Tablet 1 tab(s) orally every 8 hours as needed for vertigo , Taking Ondansetron HCl 4 MG Tablet 1 tab(s) orally every 8 hours as needed for nausea/vomiting , Taking NovoLOG FlexPen 100 UNIT/ML Solution Pen-injector 40 untis subcutaneously 3 times a day with meals , Taking Furosemide 40 MG Tablet 1 tab(s) orally once a day Objective: * Vitals: Assessment: * Assessment: 1. C ellulitis of finger of right hand - L03.011 Plan: * Treatment: * * Electronic signature of Prov ider Migration on 06/19/2025 at 12:56 PM EST Sign off status: Pending * Provider: Honey kelly Migration Date: 0 10/28/2024 Generated for Dax fairbanks/Laury/Mark on: 08/19/2024 12:56 PM EST
--- NOTE | 2025-06-19 12:49 | XR_ITS ---
FINAL REPORT CLINICAL HISTORY: PAIN FINDINGS: AP, oblique, and lateral views of the left elbow were obtained. There is no prior exam for comparison. There is no acute fracture or dislocation. Joint space is preserved. There is no joint effusion or other soft tissue abnormality. IMPRESSION: No acute osseous abnormality of the left elbow. Reviewed, Interpreted and Dictated by Kenzie Barker MD Transcribed by Kathi Anaya Authenticated and . [facility]
--- OUTSIDE RECORDS SUMMARY | 2025-06-19 12:56 | XMS_ITS ---
Author Organization [facility] Address [address] [place] [address] Care Team Providers Care Cable Strander Name Role Phone Unavailable Unavailable Unavailable Allergies, Adverse Reactions, Alerts This patient has no known allergies or adverse reactions. Problems This patient has no known problems.
--- OUTSIDE RECORDS SUMMARY | 2025-06-19 12:56 | XMS_ITS | Clinical Summary ---
Author Organization [facility] Address [address] [place] [address] Care Team Providers Care Veterans Service Officer Name Role Phone Judson Lizarraga MD Primary Care Provider Allergies No known active allergies Family History Medical History Relation Name Comments Stroke Other 1 Diabetes Other 2 Hypertension Other 3 Heart attack Other 4 Thyroid disease Other 5 Hydrocephalus Other 6 Relation Name Status Comments Other 1 Other 2 Other 3 Other 4 Other 5 Other 6 Social History Tobacco Use Types Packs/Day Years Used Date Smoking Tobacco: Never Comments Unknown Sex and Gender Information Value Date Recorded Sex Assigned at Female 03/31/2022 3:57 PM EDT Legal Sex Female 7:31 PM EDT Gender Identity Female 03/31/2022 3:57 PM EDT Sexual Orientation Straight 03/31/2022 3: 57 PM EDT Last Filed Vital Signs Vital Sign Reading Time Taken Comments Blood Pressure 142/56 04/24/2020 1:54 PM EDT Pulse - - Temperature - - Respiratory Rate - - Oxygen Saturation - - Inhaled Oxygen Concentration - - Weight 104 kg (230 lb) 05/25/2022 11:35 AM EDT Height 170.2 cm (5' 7 ) 05/25/2022 11:35 AM EDT Body Mass Index 36.02 05/25/2022 11:35 AM EDT Plan of Treatment Health Maintenance Due Date Last Done Comments [facility]-Depression Screening 1965 [facility]-HIV Screening 1965 [facility]-Hepatitis C Screening 1965 [facility]-Infant/Child/Adol SDOH Screenings 1965 [facility]- SDOH Screenings 1984 [facility]-Adult SDOH Screenings 1984 [facility]-DTaP,Tdap,and Td Vaccine s (1 - Tdap) 1985 [facility]-Hepatitis B Vaccines (1 of 3 - 19+ 3-dose series) 1985 [facility]-Pap Smear 1987 [facility]-Cervical Cancer Screening 1996 [facility]-HPV/Cotest 1996 CT Colonography 2011 Colonoscopy 2011 FIT-DNA 2011 FIT 2011 FOBT 2011 Sigmoidoscopy 2011 [facility]-Colorectal Cancer Screening 2011 [facility]-Breast Cancer Screening 2016 [facility]-Zoster Vaccines (1 of 2) 2016 [facility]-Pneumococcal Vaccine: 50 + Years (2 of 2 - PCV) 06/09/2019 06/09/2018 [id number] Vaccine (2 - 2024- season) 2025 10/30/2020 [facility]-Influenza Vaccine (#1) 2025 [facility]-Hepatitis A Vaccines Aged Out 019, 06/09/2018 No longer eligible based on patient's age to complete this topic HPV Vaccines Aged Out No longer eligi ble based on patient's age to complete this topic [facility]-HIB Vaccines Aged Out No longer e ligible based on patient's age to complete this topic [facility]-IPV Vaccines Aged Out No longer e ligible based on patient's age to complete this topic [facility]-Rotavirus Vaccines Aged Out No lo nger eligible based on patient's age to complete this topic Insurance Care Teams Veterans Service Officer Relationship Specialty Start Date End Date Judson Lizarraga MD [address] [place] [address] PCP - General 12/06/20
--- OUTSIDE RECORDS SUMMARY | 2025-06-19 12:57 | XMS_ITS | Patient Health Record ---
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 Role Phone Judson Lizarraga Primary Care Provider [phone] Meaghan Robles Unavailable [phone] Bambi Reed Unavailable [phone] Migration, Provider Unavailable Unavailable Allergies No Known Allergies Results Component Value Reference Range Notes Microalbumin (In-House) Reviewed date:01/29/2025 04:40:12 PM Interpretation:Abnormal Performing Lab: Notes/Report: Abnormal ALB 80mg CRE 100mg A:C 30-300mg COMPREHENSIVE METABOLIC PANE L (76078) Reviewed date:02/05/2025 03:53:22 PM Interpretation: Performing Lab:CB, [facility] [id number] [facility], [facility] CenterIeolWT[address] Sang Trinidad Notes/Report: NON-FASTING; NON-FASTING; NON-FASTING GLUCOSE 219 65-99 mg/dL Fasting reference interval For someone without known diabetes, a glucose value >125 mg/dL indicates that they may have diabetes and this should be confirmed with a follow-up test. UREA NITROGEN (BUN) 32 7-25 mg/dL CREATININE 1.69 0.50-1.03 mg/dL EGFR 35 > OR = 60 mL/min/1.73m2 BUN/CREATININE RATIO 19 6-22 (calc) SODIUM 140 135-146 mmol/L POTASSIUM 3.9 3.5-5.3 mmol/L CHLORIDE 100 98-110 mmol/L CARBON DIOXIDE 30 20-32 mmol/L CALCIUM 10.4 8.6-10.4 mg/dL PROTEIN, TOTAL 7.1 6.1-8.1 g/dL ALBUMIN 4.1 3.6-5.1 g/dL GLOBULIN 3.0 1.9-3.7 g/dL (calc) ALBUMIN/GLOBULIN RATIO 1.4 1.0-2.5 (calc) BILIRUBIN, TOTAL 0.4 0.2-1.2 mg/dL ALKALINE PHOSPHATASE 78 37-153 U/L AST 15 10-35 U/L ALT 16 6-29 U/L HEMOGLOBIN A1c (496) Reviewed date:02/05/2025 03:53:22 PM Interpretation: Performing Lab:[facility] [place] KnlhTF[address] Sang Trinidad Notes/Report: NON-FASTING; NON-FASTING; NON-FASTING HEMOGLOBIN A1c 8.6 <5.7 % For someone without known diabetes, a hemoglobin A1c value of 6.5% or greater indicates that they may have diabetes and this should be confirmed with a follow-up test. For someone with known diabetes, a value <7% indicates that their diabetes is well controlled and a value greater than or equal to 7% indicates suboptimal control. A1c targets should be individualized based on duration of diabetes, age, comorbid conditions, and other considerations. Currently, no consensus exists regarding use of hemoglobin A1c for diagnosis of diabetes for children. TSH W/REFLEX TO FT4 (51151) Reviewed date:02/05/2025 03:53:22 PM Interpretation: Performing Lab:[facility] [id number] [employer] [address] [facility] CenterLpewLQ[address] Sang Trinidad Notes/Report: NON-FASTING; NON-FASTING; NON-FASTING TSH W/REFLEX TO FT4 2.14 0.40-4.50 mIU/L M-Complete Blood Count Auto Diff Reviewed date:08/13/2024 09:24:55 PM Interpretation: Performing Lab: Notes/Report: WBC 8.0 4.8-10.8 K/mm3 RBC 4.48 4.20-5.40 M/mm3 HGB 12.5 12.2-16.2 g/dL HCT 39.0 37.0-47.0 % MCV 87.1 81-99 fl MCH 27.9 27.0-31.2 pg MCHC 32.1 31.8-35.4 g/dL RDW 13.5 11.5-17.5 % PLT 282 142-424 K/mm3 MPV 9.4 7.4-10.4 fl NE% 67.8 37.0-80.0 % LY% 22.0 10-50 % MO% 6.4 1.7-9.3 % EO% 2.8 0.1-12.0 % BA% 0.5 0.1-2.0 % NE# 5.4 1.8-7.8 K/mm3 LY# 1.8 0.7-4.5 K/mm3 MO# 0.5 0.1-1.0 K/mm3 EO# 0.2 0.0-0.4 K/mm3 BA# 0.0 0-0.2 K/mm3 M-Comprehensive Metabolic Pa cathy Reviewed date:08/19/2024 12:13:00 PM Interpretation: Performing Lab: Notes/Report: NA 136 136-145 mmol/L K 4.1 3.5-5.1 mmoL/L CL 103 98-107 mmol/L CO2 29 22.0-30.0 mmol/L GAP 8.1 5-15 mEq/L BUN 21 7-17 mg/dl CREATT 1.20 0.52-1.04 mg/dl GFRAA 56 >60 ML/MIN EGFR 46 >60 ml/min GLU 171 74-100 mg/dl CA 9.2 8.4-10.2 mg/dl BILIT 0.4 0.2-1.3 mg/dl AST 38 14-36 U/L ALT 27 12-78 U/L TP 6.2 6.3-8.2 g/dl ALB 3.7 3.5-5.0 g/dl GLOB 2.5 1.3-3.2 g/dL AGRATIO 1.5 1.1-1.8 ALP 80 38-126 U/L M-Hemoglobin A1C Reviewed date:08/19/2024 12:13:00 PM Interpretation: Performing Lab: Notes/Report: HGBA1C 9.4 4.0-6.0 % < 6% Non-Diabetic Level < 7% Controlled Diabetic Level > 8% Poorly Controlled Diabetic Level M-Lipid Panel Reviewed date:08/19/2024 12:13:00 PM Interpretation: Performing Lab: Notes/Report: Patient Fasting? Y TRIG 262 30-150 mg/dl CHOL 168 140-200 mg/dl DLDL 95.34 100-129 mg/dL VLDL 52 0-40 mg/dL HDL 33 40-60 mg/dl CHLHDL 5.1 1-3.5 M-Thyroid Stimulating Hormon e Reviewed date:08/13/2024 09:24:59 PM Interpretation: Performing Lab: Notes/Report: TSH 0.59 0.465-4.68 uIU/mL Rapid Covid/Flu A-B Combo Reviewed date:08/22/2024 05:00:48 PM Interpretation: Performing Lab: Notes/Report: Rapid Covid neg Flu A pos Flu B neg Medications Medication SIG (Take, Route, Frequency, Duration) Notes Start Date End Date Status Crestor 40 MG 1 tab(s) orally once a day (at bedtime); Duration: 90 days Active Vitamin C 500 MG 1 cap(s) orally once a day Active Losartan Potassium 50 MG 1 tab(s) orally once a day; Duration: 90 days Active Bisoprolol Fumarate 5 MG 1 tab(s) orally once a day; Duration: 90 days Active Plavix 75 MG 1 tab(s) orally once a day; Duration: 90 days Active ACCU-CHECK POPPY DIRECTED TID *Please review for potential replacement for e-prescription and drug interaction check* Active Calcium-Vitamin D 600MG 1 TAB(S) ORALLY TID *Please review and pick correct strength-formulati on from Hively options. If intended option is not shown, discontinue and re-order from Quick Search* Active NovoLOG FlexPen 100 UNIT/ML 40 untis subcutaneously 3 times a day with meals; Duration: 90 days Active Tylenol Extra Strength 500 MG 2 tab(s) orally Q6H prn Active Furosemide 40 MG 1 tab(s) orally once a day; Duration: 90 days Active Tresiba FlexTouch 100 UNIT/ML 80 units Subcutaneous daily 12/31/2024 Active Synthroid 50 MCG 1 tablet orally once a day; Duration: 90 days Active BD Pen Needle Short Ultrafine 31G X 8 MM USE 5 TIMES PER DAY.; Duration: 90 Active Immunizations Vaccine Route Administration Date Status Comme nts Covid Sandoval Unknown 10/30/2020 Administered Flublok IM Intramuscular 05/28/2022 Administered FLUCELVAX IM Intramuscular 06/19/2025 Administered FLUZONE 6MO - OLDER IM Intramuscular 04/22/2023 Administer ed Hep A Adult 2 Dose IM Intramuscular 06/09/2018 Administere d Hep A Adult 2 Dose IM Intramuscular 12/08/2018 Administere d Pneumovax 23 IM Intramuscular 06/09/2018 Administered Problems Problem Type SNOMED Code ICD Code Onset Dates Problem Status W/U Status Risk Notes Problem Renal disorder associated with type I diabetes mellitus (660051585) 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) Active confirmed Problem Mixed hyperlipidemia (171911246) Mixed hyperlipidemia (E78.2) Active confirmed Problem Atherosclerotic heart disease of [place] coronary artery without angina pectoris (578097020075756) Atherosclerotic heart disease of [place] coronary artery without angina pectoris (I25.10) Active confirmed Problem Cardiomyopathy (96412866) Cardiomyopathy, unspecified (I42.9) Active confirmed Problem Postmenopausal bleeding (21052108) Postmenopausal bleeding (N95.0) Active confirmed Problem Presence of coronary angioplasty implant and graft (Z95.5) Active confirmed Problem Peptic ulcer disease (55856271) PUD (peptic ulcer disease) (K27.9) Active confirmed Problem Essential hypertension (63096545) Essential hypertension (I10) Active confirmed Problem Iron deficiency anemia (80470468) Iron deficiency anemia (D50.9) Active confirmed Problem Long-term current use of insulin (416270583) 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 (Z79.4) Active confirmed Problem Obese class II (788462615975183) BMI 39.0-39.9,adult (Z68.39) Active confirmed Problem Hyperlipidemia (65101298) Hyperlipidemia, unspecified (E78.5) Active confirmed Problem Inflammation of joint of shoulder region (167772677) Arthritis, shoulder region (M19.90) Active confirmed Problem Hyperlipidemia (96676297) Hyperlipidemia, unspecified (E78.5) Active confirmed Problem Neck pain (71091118) Neck pain (M54.2) Active confirmed Problem Type I diabetes mellitus without complication (118357487) Diabetes mellitus, insulin dependent (IDDM), controlled (E10.9) Active confirmed Problem Atherosclerotic heart disease of [place] coronary artery without angina pectoris (295202267705012) Coronary artery disease involving [place] coronary artery of [place] heart without angina pectoris (I25.10) Active confirmed Problem Obese class II (065204068399587) BMI 35.0-35.9,adult (Z68.35) Active confirmed Problem Type I diabetes mellitus without complication (919780800) Diabetes type 1, controlled (E10.9) Active confirmed Problem Acid reflux (099534208) Acid reflux (K21.9) Active confirmed Problem Obese class II (014185260639578) Body mass index (BMI) of 35.0 to 35.9 in adult (Z68.35) Active confirmed Problem Hypothyroidism (21690763) Unspecified hypothyroidism (E03.9) Active confirmed Problem Type I diabetes mellitus without complication (391490943) Controlled diabetes mellitus type 1 without complications (E10.9) Active confirmed Problem Obesity (070703391) Mildly obese (E66.9) Active confirmed Problem Atherosclerotic heart disease of [place] coronary artery without angina pectoris (119116929843051) Atherosclerosis of coronary artery of [place] heart without angina pectoris, unspecified vessel or lesion type (I25.10) Active confirmed Problem Thyromegaly (0458979) Thyromegaly (E01.0) Active confirmed Problem Heart failure (53384555) Acute congestive heart failure, unspecified congestive heart failure type (I50.9) Active confirmed Problem Type I diabetes mellitus without complication (135147822) Diabetes mellitus type 1, controlled, without complications (E10.9) Active confirmed Problem Chronic kidney disease stage 2 (760770422) Stage 2 chronic kidney disease (N18.2) Active confirmed Problem COVID-19 (193749199) COVID-19 (U07.1) Active confirmed Problem Hypertensive heart failure (01316997) Unspecified hypertensive heart disease with heart failure (I11.0) Active confirmed Problem Chronic kidney disease stage 3B (disorder) (512976628) Stage 3b chronic kidney disease (CKD) (N18.32) Active confirmed Vital Signs Heart Rate 76 /min 06/19/2025 Temperature 97.1 degrees Fahrenheit 06/19/2025 Blood pressure diastolic 68 mm Hg 06/19/2025 Height 67 in 06/19/2025 Blood pressure systolic 124 mm Hg 06/19/2025 Weight 238.8 lbs 06/19/2025 BMI 37.4 kg/m2 06/19/2025 Encounters Encounter Location Date Provider Diagnosis [facility] [address] [facility] [address] [place] [address] 08/29/2024 Bambi McNees [facility] [address] [facility] [address] [place] [address] 09/04/2024 Bambi McNees [facility] [address] [facility] [address] [place] [address] 09/12/2024 Meaghan Robles [facility] [address] [facility] [address] [place] [address] 10/28/2024 Provider Migration Cellulitis of finger of right hand L03.011 [facility] [address] [facility] [address] [place] [address] 06/19/2025 Meaghan Margaret Left elbow pain M25.522 ; Diabetes type 1, controlled E10.9 and Stage 3b chronic kidney disease (CKD) N18.32 [facility] [address] [facility] [address] [place] [address] 08/07/2024 Meaghan Robles Diabetes type 1, controlled E10.9 ; Stage 3b chronic kidney disease (CKD) N18.32 ; Unspecified hypothyroidism E03.9 ; Epigastric abdominal pain R10.13 ; BMI 39.0-39.9,adult Z68.39 ; Visit for screening mammogram Z12.31 ; Mixed hyperlipidemia E78.2 and Essential hypertension I10 [facility] [address] [facility] [address] [place] [address] 08/22/2024 Bambi McNees Fever in adult R50.9 and Influenza A J10.1 [facility] [address] [address] 09/06/2024 Meaghan Robles Peripheral positiona l vertigo, unspecified laterality H81.399 and Cellulitis of finger of right hand L03.011 [facility] [address] [facility] [address] [place] [address] 09/25/2024 Meaghan Robles Cellulitis of finger of right hand L03.011 and Type 1 diabetes mellitus with diabetic chronic kidney disease E10.22 [facility] [address] [place] [address] [facility], [facility] E10.9 ; Stage 3b chronic kidney disease (CKD) N18.32 ; Unspecified hypothyroidism E03.9 ; Mixed hyperlipidemia E78.2 and Essential hypertension I10 [facility] [address] [place] [address] 08/07/2024 [facility] [address] [place] [address] 08/15/2024 Judson Besson [facility] [address] [place] [address] 08/19/2024 [facility] Diabetes type 1, controlled E10.9 [facility] [address] [facility] [address] [place] [address] 08/23/2024 [facility] Diabetes type 1, controlled E10.9 [facility] [address] [place] [address] 08/25/2024 Bambi Jasmines [facility] [address] [place] [address] 09/06/2024 [facility] Diabetes type 1, controlled E10.9 [facility] [address] [facility] [address] [place] [address] 09/25/2024 [facility] [address] [place] [address] 12/31/2024 [facility] Cellulitis of finger of right hand L03.011 [facility] [address] [place] [address] 01/29/2025 Meaghan Margaret [facility] [address] [place] [address] 02/05/2025 Judson Besson [facility] [address] [place] [address] 09/16/2024 Meaghan Robles [facility] [address] [place] [address] 12/26/2024 Meaghan Robles Epigastric abdominal pain R10.13 and Diabetes type 1, controlled E10.9 Assessments Encounter Date Diagnosis (ICD Code) Assessment Notes Treatment Notes Treatment Clinical Notes Section Notes 08/07/2024 Stage 3b chronic kidney disease (CKD) (ICD-10 - N18.32) continue losartan 08/19/2024 Diabetes type 1, controlled (ICD-10 - E10.9) 08/22/2024 Influenza A (ICD-10 - J10.1) Discussed the etiology and expected course of influenza. Discussed the decision to treatment versus nontreatment with Tamiflu as noted above. Discussed the expectations and limitations of Tamiflu as an antiviral. Discussed supportive care with antipyretics, antiemetics, antitussives, and oral hydration. Stressed the importance of oral hydration. Discussed signs and symptoms of worsening condition, especially difficulty breathing, or changes in mental status and need for reassessment in clinic or ED. i 08/22/2024 Fever in adult (ICD-10 - R50.9) i 08/23/2024 Diabetes type 1, controlled (ICD-10 - E10.9) 09/06/2024 Cellulitis of finger of right hand (ICD-10 - L03.011) 09/06/2024 Peripheral positional vertigo, unspecified laterality (ICD-10 - H81.399) good hydration, rest, medications and home exercises encouraged. RTW on 09/11 if symptoms resolved. 09/06/2024 Diabetes type 1, controlled (ICD-10 - E10.9) 09/25/2024 Type 1 diabetes mellitus with diabetic chronic kidney disease (ICD-10 - E10.22) Continue Tresiba and Humalog with meals, over CGM and FU 2 weeks after initiating use to review patterns and adjust dosing as indicated 09/25/2024 Cellulitis of finger of right hand (ICD-10 - L03.011) improved with keflex but not resolved, rec repeat antibiotics, consider labs/additiona l workup if no resolution of symptoms 10/28/2024 Cellulitis of finger of right hand (ICD-10 - L03.011) 08/07/2024 Diabetes type 1, controlled (ICD-10 - E10.9) labs as noted, possible medication adjustment based on results 12/26/2024 Epigastric abdominal pain (ICD-10 - R10.13) 12/31/2024 Cellulitis of finger of right hand (ICD-10 - L03.011) 01/29/2025 Diabetes type 1, controlled (ICD-10 - E10.9) We had attempted to order a continuous glucose meter for her back in September, this order looks to have gone through on our end but she has never heard from the pharmacy about availability. We will follow-up on that. Encouraged to continue CC diet is much as possible, activity is much as tolerated. labs as noted, possible medication adjustment based on results 01/29/2025 Stage 3b chronic kidney disease (CKD) (ICD-10 - N18.32) continue losartan 06/19/2025 Left elbow pain (ICD-10 - M25.522) 06/19/2025 Diabetes type 1, controlled (ICD-10 - E10.9) We had attempted to order a continuous glucose meter for her back in September, this order looks to have gone through on our end but she has never heard from the pharmacy about availability. We will follow-up on that. Encouraged to continue CC diet is much as possible, activity is much as tolerated. labs as noted, possible medication adjustment based on results 01/29/2025 Unspecified hypothyroidism (ICD-10 - E03.9) continue replacement 08/07/2024 Unspecified hypothyroidism (ICD-10 - E03.9) continue replacement 12/26/2024 Diabetes type 1, controlled (ICD-10 - E10.9) 06/19/2025 Stage 3b chronic kidney disease (CKD) (ICD-10 - N18.32) continue losartan 08/07/2024 Epigastric abdominal pain (ICD-10 - R10.13) h/o PUD, rec increase PPI to BID for 4 weeks and then back to once daily. Return precautions reviewed 08/07/2024 BMI 39.0-39.9,adult (ICD-10 - Z68.39) complicates all aspects of care, weight loss encouraged 08/07/2024 Visit for screening mammogram (ICD-10 - Z12.31) 01/29/2025 Mixed hyperlipidemia (ICD-10 - E78.2) 08/07/2024 Mixed hyperlipidemia (ICD-10 - E78.2) 01/29/2025 Essential hypertension (ICD-10 - I10) well controlled 08/07/2024 Essential hypertension (ICD-10 - I10) well controlled 09/06/2024 Other Jaret Maneuver at Home for Vertigo: Exercises material was printed Plan Of Treatment Pending Test Test Name Order Date Ultrasound : Abdomen 04/24/2009 MRI : Shoulder, Right 04/02/2014 X ray : Elbow, Left 06/19/2025 EKG : In House 04/25/2008 N-transferrin 05/31/2007 N-CBC with peripheral smear evaluation b y pathology 05/31/2007 H-CBC with AUTO DIFF 10/11/2017 H-CBC with AUTO DIFF 03/21/2014 H-CBC with AUTO DIFF 10/31/2015 H-CBC with AUTO DIFF 06/11/2008 H-FERRITIN 03/21/2014 H-CMP 03/21/2014 H-CMP 10/31/2015 H-CMP 10/11/2017 H-CMP 10/09/2008 H-LIPID PANEL 04/10/2015 H-LIPID PANEL 10/11/2017 H-LIPID PANEL 10/31/2015 H-LIPID PANEL 03/21/2014 H-LIPID PANEL 11/10/2010 H-HGBA1C 11/10/2010 H-HGBA1C 03/21/2014 H-HGBA1C 10/31/2015 H-HGBA1C 10/11/2017 H-MICROALBUMIN URINE 08/13/2016 H-MICROALBUMIN URINE 12/03/2016 H-MICROALBUMIN,24 HOUR URINE 10/31/2015 H- SERUM QUAL 10/09/2008 H-H.PYLORI ANTIGEN 05/01/2009 H-H.PYLORI ANTIGEN 03/06/2008 H-PTT 08/20/2014 H-MICROALB/ELECTRICAL ENGINEERING MANAGER UR 10/11/2017 M-Complete Blood Count Auto Diff 021 M-Complete Blood Count Auto Diff 018 M-Comprehensive Metabolic Panel 06/09/20 18 M-Comprehensive Metabolic Panel 12/09/19 19 M-Comprehensive Metabolic Panel 11/07/19 21 M-Hemoglobin A1C 06/09/2018 M-Hemoglobin A1C 12/08/2018 M-Hemoglobin A1C 11/06/2020 M-Lipid Panel 11/06/2020 M-Lipid Panel 12/08/2018 M-Lipid Panel 06/09/2018 M-Thyroid Stimulating Hormone 06/09/2018 M-Thyroid Stimulating Hormone 11/06/2020 C-Kcua-Gwnfpoa Antibody Titer 02/26/2021 M-Vitamin B12 02/26/2021 M-Folate 02/26/2021 M-Microalb/Creat Ratio, Randm Ur 018 M-Microalb/Creat Ratio, Randm Ur 020 M-Microalb/Creat Ratio, Randm Ur 021 Mammogram: Screening 08/07/2024 BASIC METABOLIC PANEL (15862) 06/19/2025 HEMOGLOBIN A1c (496) 06/19/2025 Future Test Test Name Order Date H-CBC with AUTO DIFF 06/21/2008 Insurance Providers Payer Name Payer Address Payer Phone Subscriber Number Group Number Insured Name Patient Relationship to Insured Coverage Start Date Coverage End Date [facility] [address] [place] [address] [id number] Jeannette Tran Self - patient is the insured Medications Administered Medication Instructions Date of Administration Dosage Notes Kenalog 40mg 12/17/2016 40 mg Medical (General) History Medical History History ICD Code gastric ulcer type I diabetes since age 13 hypertension iron deficiency anemia hyperlipidemia bursitis in right shoulder CKD stage 3, creatinine baseline 1.2 - 1 .5 Panendoscopy 2006 for anemia, negative Colonoscopy 03/11 with tubular adenoma an d hyperplastic polyp Chronic neck and shoulder pain, followed at CAD with stenting at [facility] 04/2020, Dr Mylene allen Diabetic retinopathy Surgical History Surgery Date(Month/Year) Appendectomy 1977 1987 Cholecystectomy Tubal Ligation Right shoulder surgery 08/2014 Left cataract removal 5 stents placed 04/2020 left eye 08/2020 Heart cath x 2021 3 stents 11/2021 D and C 02/2023 removal of film from both eyes 05/2023 Hospitalization History Reason Date(Month/Year) [facility] 2021 Diabetes 1988 Appendectomy 1977
--- OUTSIDE RECORDS SUMMARY | 2025-06-19 12:58 | XMS_ITS | Patient Health Record ---
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 Name Role Phone CRYSTAL VALVERDETYLERAyaz Primary Care Provider Reason For Referral No Information Medications Medication SIG (Take, Route, Fr equency, Duration) Notes Start Date End Date Status Ferrous Sulfate 1 (one) tablet oral 03/18/201007/1899 Active Flexeril 1 (one) tablet(s) or 08/14/2014 07/26/18 00 Active Aspirin 1 (one) tablet(s) or 02/06/2014 07/26/18 Active Simvastatin 1 (one) tablet(s) or 02/06/20141899 Active Trilipix 1 (one) tablet(s) or 02/06/2014 07/26/18 Active Omeprazole 1 (one) tablet(s) or 02/06/2014 900 Active Lisinopril 1 (one) tablet oral 03/18/2010 07/26/18 Active Problems Problem Type SNOMED Code ICD Code Onset Dates Problem Status W/U Status Risk Notes Problem Renal disorder due to type 2 diabetes mellitus (disorder) (947761642) Diabetes with renal manifestations, type II or unspecified type, not stated as uncontrolled (250.40) 09/21/19 12 Active confirmed Romain-Bin Problem Type I diabetes mellitus without complication (855009630) Diabetes mellitus without mention of complication, type I [juvenile type], not stated as uncontrolled (250.01) 09/21/19 12 Active confirmed Romain-Bin Problem Essential hypertension (94316141) Unspecified essential hypertension (401.9) 09/21/19 12 Active confirmed Romain-Bin Problem Chronic kidney disease stage 3 (disorder) (472161264) Chronic kidney disease, stage 3 (moderate) (N18.3) 09/21/19 12 Active confirmed Romain-Bin Plan Of Treatment No Information Insurance Providers Payer Name Payer Address Payer Phone Subscriber Number Group Number Insured Name Patient Relationship to Insured Coverage Start Date Coverage End Date [facility] [address] [place] [address] [id number] Jeannette Tran Self - patient is the insured Medical (General) History Surgical History Surgery Date(Month/Year) Appendectomy Caesarian Section Cholecystectomy Tubal Ligation
== END 2025-06-19 23:59 | disposition home or self-care (01) ==
LOC: RAD 12:47
PROVIDERS: PCP Nurse Practitioner Family; Visit Provider Nurse Practitioner Family
DX: M25.522 Pain in left elbow (principal)
CPT/HCPCS: 73080

== ENCOUNTER 2025-07-25 16:00 | Outpatient (RCR) | payer BC, SELFPAY ==
--- NOTE | 2025-07-04 16:49 | HMH.OTOPEV ---
OT Evaluation Rehab OT Outpatient Eval Start: 07/04/25 15:44 Freq: Status: Active Protocol: Document 07/04/25 15:45 XIN (Rec: 07/04/25 16:48 XIN [id number]) E-signed By Mady Russ, OT Outpatient Therapy Subjective History Subjective History Pt is a 60 year old female who presents to initial OT eval due to L elbow pain. Pt reported pain had started about 6 weeks ago. Pt had an x-ray to which they had no abnormal findings. 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 Pt reports more pain in extension when fully extended. 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 Based on the measurements and observation and report of pt, pt would benefit from skilled OP OT services and interventions in order to address these functional limitations in occupational performance to improve optimal occupational performance needed for ADL, IADL and work tasks. Measurements for initial OT eval 07/04/25 L elbow: flex 95 degrees, extension: 0 (with pain) Pain at worst: 9/10 QuickDash Activities: 20, Work: 8 ST. Pt will increase left elbow flexion to 110 degrees in order to complete daily overhead tasks independently ~50% of the time. 2. Pt will report decreased pain in elbow extension at 0 degrees in order to complete lifting tasks ind ~50% of the time. 3. Pt will increase strength to 3+/5 throughout left elbow in order to complete heavier household tasks ( laundry, mopping, vacuuming) independently ~50% of the time. 4. Pt will verbalize decreased pain levels at worst in L elbow to a 7/10 in order to complete daily ADLs independently ~50% of the time. 5. Pt will demonstrate improved endurance by completing left arm exercises for ~10 minutes prior to rest break in order to increase her tolerance for daily work activities. 6. Pt will demonstrate independence with HEP of AAROM exercises to increase overall functional use of left elbow in daily activities ~75% of the time. LT. Pt will increase left elbow flexion to 130 degrees in order to complete daily overhead tasks independently ~50% of the time. 2. Pt will report decreased pain in elbow extension at 0 degrees in order to complete lifting tasks ind ~80% of the time. 3. Pt will increase strength to 4/5 throughout left elbow in order to complete heavier household tasks ( laundry, mopping, vacuuming) independently ~50% of the time. 4. Pt will verbalize decreased pain levels at worst in L elbow to a 4/10 in order to complete daily ADLs independently ~50% of the time. 5. Pt will demonstrate improved endurance by completing left arm exercises for ~15 minutes prior to rest break in order to increase her tolerance for daily work activities. 6. Pt will demonstrate independence with advanced strengthening exercises to increase overall functional use of left elbow in daily activities ~75% of the time. New diagnosis of No cancer in past 12 months? Chief Complaint Pain,Clicks,Weakness,Decreased Coordination Symptom Type Ache Symptoms Relieved By Rest/Positioning,Ice,OTC Meds,Elevation Symptoms Aggravated Physical Activity,Lifting By Prior Functional None Limitations Current Functional Reaching,Lifting,Housework,Dressing,Driving,Sleeping, Limitations Recreation Activity Symptom Description Intermittent Level of pain today 7 (0-10) Pain scale - at its 4 best (0-10) Pain scale - at its 9 worst (0-10) Shoulder/Elbow Eval Shoulder Objective Measurements Elbow Objective Measurements Palpation Tenderness Elbow Palpation no palpation tenderness noted Overall Comment Elbow Palpation None/Normal Finding tenderness elbow left exam standard tenderness forearm left exam standard tenderness over the left lateral epicondyle elbow exam standard tenderness over the left medial epicondyle elbow exam standard Elbow ROM Left full ROM elbow exam left standard pain with active ROM left elbow exam standard pain with passive left ROM elbow exam standard Elbow Extension 0 Active Range of Motion (degrees) Elbow Extension 0 Passive Range of Motion (degrees) Elbow Flexion Active 95 Range of Motion ( degrees) Elbow ROM Muscle Weakness,Pain Limitations Elbow MMT Elbow Flexion 3 Fair Strength Grade Elbow Extension 3 Fair Strength Grade QuickDASH Activities Please rate your ability to do the following activities in the last week by selecting the number below the appropriate response. 1. Open a tight or No difficulty new jar. 2. 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 3. Carry a shopping No difficulty bag or briefcase. 4. Wash your back. Mild difficulty 5. Use a knife to No difficulty cut food. 6. Recreational Mild difficulty activities in which you take some force or impact through your arm, shoulder, or hand (e.g., golf, hammering, tennis, etc.). 7. During the past Not at all week, to what extent has your arm, shoulder or hand problem interfered with your normal social activities with family, friends , neighbors or groups? 8. During the past Slightly limited week, were you limited in your work or other regular daily activites as a result of your arm, shoulder or hand problem? 9. Arm, shoulder or Moderate hand pain. 10. Tingling (pins Mild and needles) in your arm, shoulder or hand. 11. During the past Moderate difficulty week, how much difficulty have you had sleeping because of the pain in your arm, shoulder or hand? Quick DASH 20 Work Module (optional) The following questions ask about the impact of your arm, shoulder or hand problem on your ability to work (including homemaking if that is your main work role). 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 Using your usual Mild difficulty technique for your work? 2. Doing your usual Mild difficulty work because of arm, shoulder or hand pain? 3. Doing your work Mild difficulty as well as you would like? 4. Spending your Mild difficulty usual amount of time doing your work? Quick Dash Work 8 Module Score OT Patient Goals OT Patient Goals OT Short Term 1. Pt will increase left elbow flexion to 110 degrees Patient Goals in order to complete daily overhead tasks independently ~50% of the time. 2. Pt will report decreased pain in elbow extension at 0 degrees in order to complete lifting tasks ind ~50% of the time. 3. Pt will increase strength to 3+/5 throughout left elbow in order to complete heavier household tasks ( laundry, mopping, vacuuming) independently ~50% of the time. 4. Pt will verbalize decreased pain levels at worst in L elbow to a 7/10 in order to complete daily ADLs independently ~50% of the time. 5. Pt will demonstrate improved endurance by completing left arm exercises for ~10 minutes prior to rest break in order to increase her tolerance for daily work activities. 6. Pt will demonstrate independence with HEP of AAROM exercises to increase overall functional use of left elbow in daily activities ~75% of the time. OT Retirement Patient 1. Pt will increase left elbow flexion to 130 degrees Goals in order to complete daily overhead tasks independently ~50% of the time. 2. Pt will report decreased pain in elbow extension at 0 degrees in order to complete lifting tasks ind ~80% of the time. 3. Pt will increase strength to 4/5 throughout left elbow in order to complete heavier household tasks ( laundry, mopping, vacuuming) independently ~50% of the time. 4. Pt will verbalize decreased pain levels at worst in L elbow to a 4/10 in order to complete daily ADLs independently ~50% of the time. 5. Pt will demonstrate improved endurance by completing left arm exercises for ~15 minutes prior to rest break in order to increase her tolerance for daily work activities. 6. Pt will demonstrate independence with advanced strengthening exercises to increase overall functional use of left elbow in daily activities ~75% of the time. OT Outpatient Assessment Impairments Problems/Impairments Palpation Tenderness,Impaired Range of Motion,Impaired Strength,Impaired Endurance,Impaired Lifting,Impaired Dressing,Impaired Shower/Bathing,Impaired Household Care,Impaired Recreational Activities,Impaired Work Activities,Subjective C/O Pain,Impaired Self Care/Self Management Prognosis Rehab Potential Good Clinical Impression Consistent with Yes Diagnosis Outpatient Therapy Plan of Care Treatment Plan May Include Therapeutic Exercise Yes Including Home Exercise Program Manual Therapy Yes Techniques Neuromuscular Re- Yes education Therapeutic Yes Activities to Return to Previous Functional/Work Level ADL/Self Care Yes Education Thermal Modalities Yes Electrical Yes Stimulation Ultrasound/ Yes Phonophoresis Iontophoresis Yes Parrafin Yes Orthotics/Bracing/ Yes Splinting Group Therapy for Yes Medicare Eval/Re-Eval Yes Frequency Times per week 2 Duration Number of Weeks 6 Addendums This patient is a No candidate for social or vocational rehab ? Patient/Guardian Yes verbally acknowledges understanding of treatment program and consents to further treatment? Patient/Guardian Yes verbally acknowledges understanding of diagnosis, prognosis and goals for treatment? Eval Complexity OT Charge 19829 - Moderate Complexity PHYSICIAN CERTIFICATION: I certify the specified therapy services for Jeannette Tran are required, authorized, and reviewed every 30 days.
== END 2025-07-25 23:59 | disposition home or self-care (01) ==
LOC: OT 16:00
PROVIDERS: PCP Nurse Practitioner Family; Visit Provider Nurse Practitioner Family
DX: M25.522 Pain in left elbow (principal)
CPT/HCPCS: 97014; 97035; 97110; 97140; 97166; G0283